=== PATIENT | male | born 1950 | race Caucasian/White ===

== ENCOUNTER 2021-03-03 13:20 | Observation (INO) ==
--- NOTE | 2021-03-03 14:04 | Emergency Department Note ---
Impression & Plan MIKE (acute kidney injury), Nephrolithiasis, Hypertension, essential, Leukocytosis ED Provider Note NAME: SUBHA HERRERA AGE: 70 SEX: M : 1950 ARRIVES VIA: Walk-In INFORMANT: Patient ED PROVIDER(S): Evin Eugene DO CHIEF COMPLAINT: fevers and abdomen HPI: Patient is a 70-year-old male who presents to the ER for left flank pain. He was seen and evaluated at an outside facility in [place] on Monday. Symptoms started on Monday and he was not feeling well and had some vomiting. He was found to have a kidney stone which had passed in his bladder. Has been having chills but no recorded fevers. No chest pain or shortness of breath. No other exacerbating or remitting factors. Denies any dysuria urgency or frequency. He has not really been eating or drinking. ROS: See above HPI for pertinent positives & negatives. A total of 10 systems reviewed and were otherwise negative. PAST MEDICAL HISTORY:See Below PAST SURGICAL HISTORY:See Below FAMILY HISTORY:See Below SOCIAL HISTORY:See Below HOME MEDICATIONS:See Below ALLERGIES:See Below VITALS:See Below PHYSICAL EXAMINATION: GENERAL: Sitting up in bed, alert, well appearing, well nourished, no distress, non-toxic EYE EXAM: normal conjunctiva. OROPHARYNX: no exudate, no erythema, lips, buccal mucosa, and tongue normal and mucous membranes are moist NECK: supple, no nuchal rigidity, no adenopathy, non-tender LUNGS: Clear to auscultation. Normal chest wall mechanics HEART: no murmurs, S1 normal and S2 normal ABDOMEN: abdomen soft, non-tender, normo-active bowel sounds, no masses, no rebo und or guarding. UPPER EXTREMITIES: upper extremities are grossly normal. LOWER EXTREMITIES: No pitting edema. NEURO EXAM: Normal sensorium, cranial nerves II-XII grossly intact, normal speech, no gross weakness of arms, no gross weakness of legs. MEDICAL DECISION MAKING: Patient is a 70-year-old male who presents the ER for abdominal pain. IV was established blood work was obtained. Labs show leukocytosis of 13,000. No significant anemia. INR was unremarkable. BMP with a creatinine of 2.4 up from baseline of 1.4. LFTs bilirubin was unremarkable. Troponin was negative. Procalcitonin was elevated. UA shows leukocytes, white cells, red cells and is contaminated with some epithelial cells. Covid was negative. CT abdomen pelvis shows a stone in the bladder with thickening of the left ureter. Patient was given IV fluids and Rocephin. He was updated bedside. With the MIKE discussed case with the hospitalist for observation. Triage Nursing notes reviewed. Limited review of prior medical records performed Vital Signs: reviewed and remarkable for HTN Differential diagnosis: Infection, dehydration, metabolic abnormality, hypo/hyperglycemia, electrolyte disturbance, anemia, hypoxia, cardiac sources, intracerebral event, toxicologic, neurologic, as well as other pathologies. ER treatment provided: See below Diagnostics interpreted by me: ECG: Sinus rhythm rate of 97 Left axis T wave inversion in the high lateral leads PVCs QTC 487 Cardiac Monitoring: An order was placed for continuous cardiac monitoring. The monitor shows a rate of 88 with sinus rhythm. Laboratory studies: As stated above and show below. Imaging studies: CT abdomen pelvis as discussed above Consultation(s): Discussed with Dr. 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 Beliefs That Will Affect Care: None Current Living Situation: Spouse Feels Safe at Home: Yes Assistive Devices: None Allergies Allergies Allergy/AdvReac Type Severity Reaction Status Date / Time No Known Allergies Allergy Unverified 03/03/21 15:51 Home Meds Home Medications Medication Instructions Recorded Confirmed cilostazol 100 mg PO BID 03/03/21 03/03/21 lisinopril 20 mg PO QAM 03/03/21 03/03/21 meloxicam 15 mg PO HS 03/03/21 03/03/21 metformin 500 mg PO BID 03/03/21 03/03/21 simvastatin 40 mg PO QAM 03/03/21 03/03/21 terazosin 2 mg PO QAM 03/03/21 03/03/21 Results & Data (ED) Vital Signs Vital Signs - 24 hr 03/03/21 13:23 03/03/21 14:09 03/03/21 14:11 Temperature 37.0 C Temperature Source Oral Pulse Rate 117 H 100 H 92 H Pulse Rate from SpO2 Sensor 100 H 98 H Pulse Rhythm Respiratory Rate 20 19 20 Respiratory Effort / Characteristics Non-Labored Respiratory Depth Normal Blood Pressure 132/82 163/86 H Blood Pressure Mean 98 111 Pulse Oximetry 99 97 95 Oxygen Delivery Method Room Air Sepsis Recent Fever Within 48 Hours No Sepsis New/Unexplained Change in Mental Status N/A Sepsis Action Taken by Nursing No Action Required 03/03/21 14:43 03/03/21 14:50 03/03/21 15:00 Temperature Temperature Source Pulse Rate 96 H 95 H Pulse Rate from SpO2 Sensor 98 H 93 H Pulse Rhythm Regular Respiratory Rate 20 15 Respiratory Effort / Characteristics Non-Labored Spontaneous SOB on Exertion Respiratory Depth Blood Pressure 129/76 Blood Pressure Mean 93 Pulse Oximetry 98 94 95 Oxygen Delivery Method Room Air Sepsis Recent Fever Within 48 Hours Sepsis New/Unexplained Change in Mental Status Sepsis Action Taken by Nursing 03/03/21 15:30 Temperature Temperature Source Pulse Rate 89 Pulse Rate from SpO2 Sensor 82 Pulse Rhythm Respiratory Rate 22 Respiratory Effort / Characteristics Respiratory Depth Blood Pressure 149/87 H Blood Pressure Mean 107 Pulse Oximetry 95 Oxygen Delivery Method Sepsis Recent Fever Within 48 Hours Sepsis New/Unexplained Change in Mental Status Sepsis Action Taken by Nursing Laboratory Data Result diagrams: 03/03/21 14:07 03/03/21 14:07 Lab Results 03/03/21 03/03/21 03/03/21 Range/Units 13:57 14:07 14:07 WBC 13.06 H (4.8-10.8) K/uL RBC 5.40 (4.7-6.1) M/uL Hgb 14.6 (14.0-18.0) g/dL Hct 43.8 (42-52) % MCV 81.1 (80-100) fL MCH 27.0 (25-34) pg MCHC 33.3 (32-36) g/dL RDW Std Deviation 45.3 (36.4-46.3) fL RDW Coeff of Joaquin 15.2 H (11.5-14.5) % Plt Count 146 (130-400) K/uL MPV 10.6 H (7.4-10.4) fL Immature Gran % (Auto) 0.3 % Neut % (Auto) 84.5 % Lymph % (Auto) 5.8 % Stonewall % (Auto) 8.7 % Eos % (Auto) 0.5 % Baso % (Auto) 0.2 % Neut # (Auto) 11.05 H (1.4-6.5) K/uL Lymph # (Auto) 0.76 L (1.2-3.4) K/uL Stonewall # (Auto) 1.13 H (0.11-0.59) K/uL Eos # (Auto) 0.06 (0-0.5) K/uL Baso # (Auto) 0.02 (0-0.2) K/uL Immature Gran # (Auto) 0.04 H (0.00-0.02) K/uL PT 10.6 (9.0-12.0) Seconds INR 1.0 (0.9-1.1) APTT 22.6 (21.0-31.0) Seconds PTT Ratio 0.9 Sodium (136-145) mmol/L Potassium (3.5-5.1) mmol/L Chloride (98-107) mmol/L Carbon Dioxide (21-32) mmol/L Anion Gap (3-11) BUN (7-18) mg/dl Creatinine (0.6-1.4) mg/dl Est Cr Clr Drug Dosing ml/min Est GFR ( Amer) ml/min Est GFR (Non-Af Amer) ml/min BUN/Creatinine Ratio (10-20) Glucose (70-99) mg/dl Lactate (0.4-2.0) mmol/L Calcium (8.5-10.1) mg/dl Magnesium (1.8-2.4) mg/dl Total Bilirubin (0.2-1) mg/dl AST (15-37) U/L ALT (12-78) U/L Alkaline Phosphatase (45-117) U/L Troponin I (0-0.045) ng/ml Total Protein (6.4-8.2) gm/dl Albumin (3.4-5.0) gm/dl Globulin (2.5-4.0) gm/dl Albumin/Globulin Ratio (0.9-2) Procalcitonin (0-0.5) ng/ml Urine Color Urine Appearance (Clear) Urine pH (4.5-7.5) Ur Specific Weare (1.000-1.030) Urine Protein (Negative) Urine Glucose (UA) (Negative) Urine Ketones (Negative) Urine Blood (Negative) Urine Nitrite (Negative) Urine Bilirubin (Negative) Urine Urobilinogen (Negative) Ur Leukocyte Esterase (Negative) Urine WBC (Auto) (0-5) /hpf Urine RBC (Auto) (0-4) /hpf U Hyaline Cast (Auto) (0-5) /lpf U Epithel Cells (Auto) (0-5) /lpf Urine Bacteria (Auto) (Negative) COVID-19 Eval Order SARS-CoV-2 (PCR) NEGATIVE (Negative) 03/03/21 03/03/21 03/03/21 Range/Units 14:07 14:07 14:07 WBC (4.8-10.8) K/uL RBC (4.7-6.1) M/uL Hgb (14.0-18.0) g/dL Hct (42-52) % MCV (80-100) fL MCH (25-34) pg MCHC (32-36) g/dL RDW Std Deviation (36.4-46.3) fL RDW Coeff of Joaquin (11.5-14.5) % Plt Count (130-400) K/uL MPV (7.4-10.4) fL Immature Gran % (Auto) % Neut % (Auto) % Lymph % (Auto) % Stonewall % (Auto) % Eos % (Auto) % Baso % (Auto) % Neut # (Auto) (1.4-6.5) K/uL Lymph # (Auto) (1.2-3.4) K/uL Stonewall # (Auto) (0.11-0.59) K/uL Eos # (Auto) (0-0.5) K/uL Baso # (Auto) (0-0.2) K/uL Immature Gran # (Auto) (0.00-0.02) K/uL PT (9.0-12.0) Seconds INR (0.9-1.1) APTT (21.0-31.0) Seconds PTT Ratio Sodium 138 (136-145) mmol/L Potassium 4.0 (3.5-5.1) mmol/L Chloride 105 (98-107) mmol/L Carbon Dioxide 27 (21-32) mmol/L Anion Gap 6.0 (3-11) BUN 33 H (7-18) mg/dl Creatinine 2.44 H (0.6-1.4) mg/dl Est Cr Clr Drug Dosing 35.3 ml/min Est GFR ( Amer) 29.5 ml/min Est GFR (Non-Af Amer) 25.5 ml/min BUN/Creatinine Ratio 13.7 (10-20) Glucose 114 H (70-99) mg/dl Lactate 1.3 (0.4-2.0) mmol/L Calcium 8.5 (8.5-10.1) mg/dl Magnesium 2.2 (1.8-2.4) mg/dl Total Bilirubin 1.0 (0.2-1) mg/dl AST 21 (15-37) U/L ALT 22 (12-78) U/L Alkaline Phosphatase 83 (45-117) U/L Troponin I < 0.015 (0-0.045) ng/ml Total Protein 7.1 (6.4-8.2) gm/dl Albumin 3.4 (3.4-5.0) gm/dl Globulin 3.7 (2.5-4.0) gm/dl Albumin/Globulin Ratio 0.9 (0.9-2) Procalcitonin 1.20 H (0-0.5) ng/ml Urine Color Urine Appearance (Clear) Urine pH (4.5-7.5) Ur Specific Weare (1.000-1.030) Urine Protein (Negative) Urine Glucose (UA) (Negative) Urine Ketones (Negative) Urine Blood (Negative) Urine Nitrite (Negative) Urine Bilirubin (Negative) Urine Urobilinogen (Negative) Ur Leukocyte Esterase (Negative) Urine WBC (Auto) (0-5) /hpf Urine RBC (Auto) (0-4) /hpf U Hyaline Cast (Auto) (0-5) /lpf U Epithel Cells (Auto) (0-5) /lpf Urine Bacteria (Auto) (Negative) COVID-19 Eval Order SARS-CoV-2 (PCR) (Negative) 03/03/21 03/03/21 Range/Units 14:45 14:59 WBC (4.8-10.8) K/uL RBC (4.7-6.1) M/uL Hgb (14.0-18.0) g/dL Hct (42-52) % MCV (80-100) fL MCH (25-34) pg MCHC (32-36) g/dL RDW Std Deviation (36.4-46.3) fL RDW Coeff of Joaquin (11.5-14.5) % Plt Count (130-400) K/uL MPV (7.4-10.4) fL Immature Gran % (Auto) % Neut % (Auto) % Lymph % (Auto) % Stonewall % (Auto) % Eos % (Auto) % Baso % (Auto) % Neut # (Auto) (1.4-6.5) K/uL Lymph # (Auto) (1.2-3.4) K/uL Stonewall # (Auto) (0.11-0.59) K/uL Eos # (Auto) (0-0.5) K/uL Baso # (Auto) (0-0.2) K/uL Immature Gran # (Auto) (0.00-0.02) K/uL PT (9.0-12.0) Seconds INR (0.9-1.1) APTT (21.0-31.0) Seconds PTT Ratio Sodium (136-145) mmol/L Potassium (3.5-5.1) mmol/L Chloride (98-107) mmol/L Carbon Dioxide (21-32) mmol/L Anion Gap (3-11) BUN (7-18) mg/dl Creatinine (0.6-1.4) mg/dl Est Cr Clr Drug Dosing ml/min Est GFR ( Amer) ml/min Est GFR (Non-Af Amer) ml/min BUN/Creatinine Ratio (10-20) Glucose (70-99) mg/dl Lactate (0.4-2.0) mmol/L Calcium (8.5-10.1) mg/dl Magnesium (1.8-2.4) mg/dl Total Bilirubin (0.2-1) mg/dl AST (15-37) U/L ALT (12-78) U/L Alkaline Phosphatase (45-117) U/L Troponin I (0-0.045) ng/ml Total Protein (6.4-8.2) gm/dl Albumin (3.4-5.0) gm/dl Globulin (2.5-4.0) gm/dl Albumin/Globulin Ratio (0.9-2) Procalcitonin (0-0.5) ng/ml Urine Color Dark Yellow Urine Appearance Cloudy A (Clear) Urine pH 5.0 (4.5-7.5) Ur Specific Weare 1.020 (1.000-1.030) Urine Protein 2+ H (Negative) Urine Glucose (UA) Negative (Negative) Urine Ketones Trace H (Negative) Urine Blood 2+ H (Negative) Urine Nitrite Negative (Negative) Urine Bilirubin Negative (Negative) Urine Urobilinogen Negative (Negative) Ur Leukocyte Esterase 1+ H (Negative) Urine WBC (Auto) 10-30 H (0-5) /hpf Urine RBC (Auto) 10-30 H (0-4) /hpf U Hyaline Cast (Auto) 1-5 (0-5) /lpf U Epithel Cells (Auto) >30 H (0-5) /lpf Urine Bacteria (Auto) Negative (Negative) COVID-19 Eval Order Covid19 at [facility] SARS-CoV-2 (PCR) (Negative) Administered Medications Discontinued Medications Ceftriaxone Sodium (Rocephin) 1,000 mg in 50 mls @ 100 mls/hr IV NOW STA Stop: 03/03/21 15:36 Last Infusion: 03/03/21 15:20 Dose: 0 mls/hr Documented by: [id number] Admin: 03/03/21 15:17 Dose: 100 mls/hr Documented by: [id number] Sodium Chloride (Nss 1000ml) 1,000 mls @ 999 mls/hr IV .Q1H1M ONE Stop: 03/03/21 16:07 Last Infusion: 03/03/21 16:53 Dose: 0 mls/hr Documented by: [id number] Admin: 03/03/21 15:17 Dose: 999 mls/hr Documented by: [id number] Imaging Data Radiologist's Impression: Chest X-Ray 03/03/21 13:57 SINGLE VIEW CHEST CLINICAL HISTORY: Sepsis. FINDINGS: An AP, portable, upright chest radiograph is correlated with chest CT dated 05/07/2019. The examination is degraded by portable technique and apical lordotic positioning. The heart is enlarged. The pulmonary vasculature is noncongested. Mild atelectasis is noted in the lung bases. The lungs and pleural spaces are otherwise clear. No pneumothorax is seen. The skeletal structures are osteopenic. The bony thorax is grossly intact. IMPRESSION: Mild cardiomegaly with no acute cardiopulmonary abnormality. ACT 112: Negative or not required by law. Electronically signed by: Mitch Celestin M.D. 03/03/2021 2:13 PM Abdomen/Pelvis CT 03/03/21 13:58 CT SCAN OF THE ABDOMEN AND PELVIS WITHOUT IV CONTRAST CLINICAL HISTORY: Left flank pain. COMPARISON STUDY: Abdominal CT dated 05/07/2019. TECHNIQUE: CT scan of the abdomen and pelvis is performed from the lung bases to the proximal femora. Images are reviewed in the axial, sagittal, and coronal planes. IV contrast was not administered for this examination. A dose lowering technique was utilized adhering to the principles of ALARA. CT DOSE: 1067.06 mGycm FINDINGS: Lung bases: The heart is normal in size and without pericardial effusion. There are coronary artery calcifications. The lung bases are clear. Liver: The unenhanced liver is normal in size, contour, and attenuation. There is no intrahepatic biliary ductal dilatation. Gallbladder: Unremarkable. Spleen: Normal in size and attenuation. Pancreas: The unenhanced pancreas is moderately atrophic and grossly unremarkable. Adrenal glands: Calcifications and a 1.0 cm adenoma of the right adrenal gland are unchanged. The left adrenal gland is normal in appearance. Kidneys: The unenhanced kidneys demonstrate mild cortical atrophy and are without hydronephrosis. There is mild fullness of the left renal collecting system and left perinephric stranding. No calculi are identified in either kidney. There is no evidence of contour deforming renal mass lesion. Abdominal vasculature: There is moderate atherosclerotic calcification of the abdominal aorta. An infrarenal abdominal aortic aneurysm measures 4.6 x 4.6 cm. The right iliac arteries diminutive. Bowel: There is mild colonic diverticulosis without CT evidence of acute di verticulitis. No bowel obstruction is seen. The appendix is well-visualized and normal. Peritoneum: There is no intraperitoneal free air or abdominal ascites. There is a small fat-containing umbilical hernia. Lymphadenopathy: None. Pelvic viscera: The prostate gland is enlarged and heterogeneous, measuring 5.3 cm transverse diameter. There is median lobe hypertrophy. The bladder wall is thickened and trabeculated indicating chronic outlet obstruction. A 4 mm calculus is present within the bladder lumen as seen on image #[id number]. Skeletal structures: The skeletal structures are osteopenic. Mild lumbosacral spondylosis is observed. No lytic or blastic lesions are seen. IMPRESSION: 1. There is a 4 mm calculus within the bladder lumen, as well as fullness of the left renal collecting system and associated left-sided perinephric stranding. This likely represents the sequela of a recently passed kidney stone. 2. No additional calculi are seen in either kidney. 3. There is a 4.6 x 4.6 cm infrarenal abdominal aortic aneurysm. 4. Mild colonic diverticulosis without CT evidence of acute diverticulitis. 5. Additional findings as above. ACT 112: Negative or not required by law. Electronically signed by: Mitch Celestin M.D. 03/03/2021 3:01 PM Discharge Plan Visit Data Chief Complaint: Kidney Stone Stated Complaint: LFT SIDE KID STONE,FEVER,CHILLS,KIDNEY FXN LAB ABN ED Provider: Evin Eugene Discharge Problem: MIKE (acute kidney injury), Nephrolithiasis, Hypertension, essential, Leukocytosis Forms Stand Alone Forms: My [email or web address] Prescriptions Prescriptions: No Action metformin 500 mg tablet 500 mg PO BID RF: 0 cilostazol 100 mg tablet 100 mg PO BID RF: 0 meloxicam 15 mg tablet 15 mg PO HS RF: 0 lisinopril 20 mg tablet 20 mg PO QAM RF: 0 simvastatin 40 mg tablet 40 mg PO QAM RF: 0 terazosin 2 mg capsule 2 mg PO QAM RF: 0 Discharge Problem: Leukocytosis Qualifiers: Leukocytosis type: unspecified Qualified Code(s): D72.829 - Elevated white blood cell count, unspecified
--- NOTE | 2021-03-03 14:14 | XRay Report ---
SINGLE VIEW CHEST CLINICAL HISTORY: Sepsis. FINDINGS: An AP, portable, upright chest radiograph is correlated with chest CT dated 05/07/2019. The examination is degraded by portable technique and apical lordotic positioning. The heart is enlarged. The pulmonary vasculature is noncongested. Mild atelectasis is noted in the lung bases. The lungs an d pleural spaces are otherwise clear. No pneumothorax is seen. The skeletal structures are osteopenic . The bony thorax is grossly intact. IMPRESSION: Mild cardiomegaly with no acute cardiopulmonary abnormality. ACT 112: Negative or not required by law. Electronically signed by: Mitch Celestin M.D. 03/03/2021 2:13 PM
[2021-03-03 14:21] LABS: Basophils # (auto) 0.02 K/uL (0-0.2); Basophils % (auto) 0.2 %; Eosinophils # (auto) 0.06 K/uL (0-0.5); Eosinophils % (auto) 0.5 %; Hematocrit (blood only) 43.8 % (42-52); Hemoglobin 14.6 g/dL (14.0-18.0); Immature Granulocytes # (auto) 0.04 K/uL (0.00-0.02); Immature Granulocytes % (auto) 0.3 %; Lymphocytes # (auto) 0.76 K/uL (1.2-3.4); Lymphocytes % (auto) 5.8 %; Mean Corpuscular Hgb Conc 33.3 g/dL (32-36); Mean Corpuscular Volume 81.1 fL (80-100); Mean Platelet Volume 10.6 fL (7.4-10.4); Monocytes # (auto) 1.13 K/uL (0.11-0.59); Monocytes % (auto) 8.7 %; Neutrophils # (auto) 11.05 K/uL (1.4-6.5); Neutrophils % (auto) 84.5 %; Platelet Count 146 K/uL (130-400); RDW Coefficient of Variation 15.2 % (11.5-14.5); RDW Standard Deviation 45.3 fL (36.4-46.3); White Blood Count 13.06 K/uL (4.8-10.8)
[2021-03-03 14:34] LABS: Partial Thromboplastin Ratio 0.9; Partial Thromboplastin Time 22.6 Seconds (21.0-31.0); Prothrombin Time 10.6 Seconds (9.0-12.0)
[2021-03-03 14:36] LABS: Alanine Aminotransferase 22 U/L (12-78); Albumin Level 3.4 gm/dl (3.4-5.0); Aspartate Aminotransferase 21 U/L (15-37); BUN Creatinine Ratio 13.7 (10-20); Blood Urea Nitrogen 33 mg/dl (7-18); Calcium 8.5 mg/dl (8.5-10.1); Carbon Dioxide 27 mmol/L (21-32); Chloride 105 mmol/L (98-107); Creatinine Clr Calc Pharmacy 35.3 ml/min; Est GFR (African American) 29.5 ml/min; Est GFR (Non-African American) 25.5 ml/min; Glucose 114 mg/dl (70-99); Magnesium 2.2 mg/dl (1.8-2.4); Sodium 138 mmol/L (136-145)
[2021-03-03 14:41] LABS: Albumin Globulin Ratio 0.9 (0.9-2); Alkaline Phosphatase 83 U/L (45-117); Globulin 3.7 gm/dl (2.5-4.0); Total Protein 7.1 gm/dl (6.4-8.2); Troponin I < 0.015 ng/ml (0-0.045)
--- NOTE | 2021-03-03 15:02 | CT Scan Report ---
CT SCAN OF THE ABDOMEN AND PELVIS WITHOUT IV CONTRAST CLINICAL HISTORY: Left flank pain. COMPARISON STUDY: Abdominal CT dated 05/07/2019. TECHNIQUE: CT scan of the abdomen and pelvis is performed from the lung bases to the proximal femora. Images are reviewed in the axial, sagittal, and coronal planes. IV contrast was not administered for this examination. A dose lowering technique was utilized adhering to the principles of ALARA. CT DOSE: 1067.06 mGycm FINDINGS: Lung bases: The heart is normal in size and without pericardial effusion. There are coronary artery c alcifications. The lung bases are clear. Liver: The unenhanced liver is normal in size, contour, and attenuation. There is no intrahepatic javier iary ductal dilatation. Gallbladder: Unremarkable. Spleen: Normal in size and attenuation. Pancreas: The unenhanced pancreas is moderately atrophic and grossly unremarkable. Adrenal glands: Calcifications and a 1.0 cm adenoma of the right adrenal gland are unchanged. The lef t adrenal gland is normal in appearance. Kidneys: The unenhanced kidneys demonstrate mild cortical atrophy and are without hydronephrosis. The re is mild fullness of the left renal collecting system and left perinephric stranding. No calculi ar e identified in either kidney. There is no evidence of contour deforming renal mass lesion. Abdominal vasculature: There is moderate atherosclerotic calcification of the abdominal aorta. An inf rarenal abdominal aortic aneurysm measures 4.6 x 4.6 cm. The right iliac arteries diminutive. Bowel: There is mild colonic diverticulosis without CT evidence of acute diverticulitis. No bowel obs truction is seen. The appendix is well-visualized and normal. Peritoneum: There is no intraperitoneal free air or abdominal ascites. There is a small fat-containin g umbilical hernia. Lymphadenopathy: None. Pelvic viscera: The prostate gland is enlarged and heterogeneous, measuring 5.3 cm transverse diamete r. There is median lobe hypertrophy. The bladder wall is thickened and trabeculated indicating chroni c outlet obstruction. A 4 mm calculus is present within the bladder lumen as seen on image #395. Skeletal structures: The skeletal structures are osteopenic. Mild lumbosacral spondylosis is observed . No lytic or blastic lesions are seen. IMPRESSION: 1. There is a 4 mm calculus within the bladder lumen, as well as fullness of the left renal collectin g system and associated left-sided perinephric stranding. This likely represents the sequela of a rec ently passed kidney stone. 2. No additional calculi are seen in either kidney. 3. There is a 4.6 x 4.6 cm infrarenal abdominal aortic aneurysm. 4. Mild colonic diverticulosis without CT evidence of acute diverticulitis. 5. Additional findings as above. ACT 112: Negative or not required by law. Electronically signed by: Mitch Celestin M.D. 03/03/2021 3:01 PM
[2021-03-03] MEDS ORDERED: SODIUM CHLORIDE 0.9% 1000ML 1,000 ML IV ONE (15:07)
[2021-03-03] MEDS ORDERED: cefTRIAXone SODIUM 1,000 MG/50 ML BAG IV STA (15:07)
[2021-03-03 15:23] LABS: Appearance Urine Cloudy (Clear); Bacteria Urine Automated Negative (Negative); Bilirubin Urine Negative (Negative); Blood Urine 2+ (Negative); Color Urine Dark Yellow; Epithelial Cell Urine Auto >30 /lpf (0-5); Glucose Urine UA Negative (Negative); Ketones Urine Trace (Negative); Leukocyte Esterase Urine 1+ (Negative); Nitrite Urine Negative (Negative); Protein Urine 2+ (Negative); Urobilinogen Urine Negative (Negative)
--- NOTE | 2021-03-03 16:54 | History & Physical Report ---
Date of Service March 03, 2021 Assessment & Plan (1) Nephrolithiasis: Mr. Umaña is a 70 year old male with a history of Hypertension, Dyslipidemia, Obesity, DJD, PAD (Left SFA Occlusion, Right MARIANO Occlusion, Obesity, and an Infrarenal AAA (4.6 x 4.6 cm) who presented to [facility] ER today with a left sided kidney stone that appears to have passed into his bladder, inflamed left ureter, fullness of the left renal collecting system, and evidence of MIKE. Patient has an elevated WBC count with a leftward shift, Serum Creatinine is elevated at 2.44 mg/dl (last measured at 1.46 in April 2019), and CT Scan shows there is a 4.6 x 4.6 cm infrarenal AAA. Patient received a dose of Rocephin in the ER and he is getting IVF's. Pain is better at this point, and he is no longer nauseated. -- Admit to observation status. -- Continue IVF's. -- Type 2 DM diet. -- Oral hydration. -- Analgesics as needed for pain control. -- Recheck BMP in the morning. -- DVT prophylaxis. (2) MIKE (acute kidney injury): -- Hold Meloxicam. -- Hold Lisinopril. -- Hold Metformin. -- Continue IVF's. -- Oral hydration. -- Recheck BMP in the morning. (3) AAA (abdominal aortic aneurysm): This is not listed in his diagnoses, presumed to be newly discovered. -- AAA measures 4.6 x 4.6 cm. -- Patient has seen Dr. Castillo in the past for his PAD. -- Recommend that he follow-up with Dr. Castillo as an outpatient. (4) Hypertension, essential: -- Continue Terazosin 2 mg daily. -- Hold Lisinopril until renal function returns to baseline. (5) Dyslipidemia: -- Continue Simvastatin 40 mg daily. (6) Type 2 diabetes mellitus: -- Hold Metformin. -- Glycemic pharmacy consult. -- BSG checks qAC and HS. -- SSI if needed. History of Present Illness Chief Complaint: -- LLQ pain. -- Nephrolithiasis. -- MIKE. Primary Care Provider: Venkat Camejo DO Mr. Umaña is a 70 year old male with a history of Hypertension, Dyslipidemia, Obesity, DJD, PAD, and Obesity who presented to [facility] ER today complaining of Left Flank Pain with associated Nausea, Vomiting, and Poor Appetite over the past 4 days. He was found to have a kidney stone which had passed in his bladder. He has been having chills but no recorded fevers. He denies any dysuria, urinary urgency, or urinary frequency. Otherwise he has not had a BM in a few days but has not been eating like he normally would. Patient offers no other complaints. Since his stone passed into his bladder the pain has not been as severe. Additionally, he is no longer nauseated -- and states he is very hungry at this point. Evaluation in the ER shows an elevated WBC count with a leftward shift, and his Serum Creatinine is elevated at 2.44 mg/dl (last measured at 1.46 in April 2019). CT Scan shows a 4 mm stone in the bladder, fullness of the left renal collecting system and associated left-sided perinephric stranding. This likely represents the sequela of a recently passed kidney stone, no additional calculi are seen in either kidney, and there is a 4.6 x 4.6 cm infrarenal AAA. Allergies Allergy/AdvReac Type Severity Reaction Status Date / Time No Known Allergies Allergy Unverified 03/03/21 15:51 Home Medications Medication Instructions Recorded Confirmed Type cilostazol 100 mg PO BID 03/03/21 03/03/21 History lisinopril 20 mg PO QAM 03/03/21 03/03/21 History meloxicam 15 mg PO HS 03/03/21 03/03/21 History metformin 500 mg PO BID 03/03/21 03/03/21 History simvastatin 40 mg PO QAM 03/03/21 03/03/21 History terazosin 2 mg PO QAM 03/03/21 03/03/21 History Past Med/Surg History Medical History Cataract, bilateral Diabetes Hypercholesteremia Hypertension Tonsillectomy planned Surgical History Hx of inguinal herniorrhaphy Social History Smoking Status: Current every day smoker Second Hand Exposure: No; Hx Alcohol Use: No Hx Substance Use: No Preferred Language: Icelandic 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 HEENT: Head is atraumatic, normocephalic. EOM's intact. Facies symmetric. No perioral cyanosis. NECK: No JVD. Carotid upstrokes are + 2 bilaterally. No bruits are noted. CHEST/LUNGS: Mildly diminished breath sounds throughout, but otherwise clear. No wheezes, rales, or crackles. CVS: S1 and S2 are regular, distant without obvious murmurs, gallops, or rubs. PMI is nondisplaced. No lifts, heaves, or thrills. No abdominal aortic or renal bruits. Infrarenal AAA is not palpable. ABDOMINAL EXAM: Bowel sounds are present. No masses or organomegaly.tenderness. No palpable pulsatile masses. Mild tenderness to deep palpation in the LLQ. EXTREMITIES: No clubbing or cyanosis. No edema. Intact radial pulses bilaterally. NEUROLOGIC EXAM: Patient is awake, alert, and oriented. Pleasant and cooperative. Answers questions appropriately. Speech is clear. Normal movement in all 4 extremities. Gait pattern was not assessed. Bus Escort shows a NSR. Results & Data Results & Data ([facility]) Vital Signs (Past 12 Hours) Vital Signs Temp Pulse Resp BP Pulse Ox 03/03/21 15:30 89 22 149/87 H 95 03/03/21 15:00 95 H 15 129/76 95 03/03/21 14:50 96 H 20 94 03/03/21 14:43 98 03/03/21 14:11 92 H 20 95 03/03/21 14:09 100 H 19 163/86 H 97 03/03/21 13:23 37.0 C 117 H 20 132/82 99 Laboratory Results Laboratory Results - last 24 hr 03/03/21 03/03/21 03/03/21 13:57 14:07 14:07 WBC 13.06 H RBC 5.40 Hgb 14.6 Hct 43.8 MCV 81.1 MCH 27.0 MCHC 33.3 RDW Std Deviation 45.3 RDW Coeff of Joaquin 15.2 H Plt Count 146 MPV 10.6 H Immature Gran % (Auto) 0.3 Neut % (Auto) 84.5 Lymph % (Auto) 5.8 Zapata % (Auto) 8.7 Eos % (Auto) 0.5 Baso % (Auto) 0.2 Neut # (Auto) 11.05 H Lymph # (Auto) 0.76 L Zapata # (Auto) 1.13 H Eos # (Auto) 0.06 Baso # (Auto) 0.02 Immature Gran # (Auto) 0.04 H PT 10.6 INR 1.0 APTT 22.6 PTT Ratio 0.9 Sodium Potassium Chloride Carbon Dioxide Anion Gap BUN Creatinine Est Cr Clr Drug Dosing Est GFR ( Amer) Est GFR (Non-Af Amer) BUN/Creatinine Ratio Glucose Lactate Calcium Magnesium Total Bilirubin AST ALT Alkaline Phosphatase Troponin I Total Protein Albumin Globulin Albumin/Globulin Ratio Procalcitonin Urine Color Urine Appearance Urine pH Ur Specific [place]f Urine Protein Urine Glucose (UA) Urine Ketones Urine Blood Urine Nitrite Urine Bilirubin Urine Urobilinogen Ur Leukocyte Esterase Urine WBC (Auto) Urine RBC (Auto) U Hyaline Cast (Auto) U Epithel Cells (Auto) Urine Bacteria (Auto) COVID-19 Eval Order SARS-CoV-2 (PCR) NEGATIVE 03/03/21 03/03/21 03/03/21 14:07 14:07 14:07 WBC RBC Hgb Hct MCV MCH MCHC RDW Std Deviation RDW Coeff of Joaquin Plt Count MPV Immature Gran % (Auto) Neut % (Auto) Lymph % (Auto) Zapata % (Auto) Eos % (Auto) Baso % (Auto) Neut # (Auto) Lymph # (Auto) Zapata # (Auto) Eos # (Auto) Baso # (Auto) Immature Gran # (Auto) PT INR APTT PTT Ratio Sodium 138 Potassium 4.0 Chloride 105 Carbon Dioxide 27 Anion Gap 6.0 BUN 33 H Creatinine 2.44 H Est Cr Clr Drug Dosing 35.3 Est GFR ( Amer) 29.5 Est GFR (Non-Af Amer) 25.5 BUN/Creatinine Ratio 13.7 Glucose 114 H Lactate 1.3 Calcium 8.5 Magnesium 2.2 Total Bilirubin 1.0 AST 21 ALT 22 Alkaline Phosphatase 83 Troponin I < 0.015 Total Protein 7.1 Albumin 3.4 Globulin 3.7 Albumin/Globulin Ratio 0.9 Procalcitonin 1.20 H Urine Color Urine Appearance Urine pH Ur Specific [place] Urine Protein Urine Glucose (UA) Urine Ketones Urine Blood Urine Nitrite Urine Bilirubin Urine Urobilinogen Ur Leukocyte Esterase Urine WBC (Auto) Urine RBC (Auto) U Hyaline Cast (Auto) U Epithel Cells (Auto) Urine Bacteria (Auto) COVID-19 Eval Order SARS-CoV-2 (PCR) 03/03/21 03/03/21 14:45 14:59 WBC RBC Hgb Hct MCV MCH MCHC RDW Std Deviation RDW Coeff of Joaquin Plt Count MPV Immature Gran % (Auto) Neut % (Auto) Lymph % (Auto) Zapata % (Auto) Eos % (Auto) Baso % (Auto) Neut # (Auto) Lymph # (Auto) Zapata # (Auto) Eos # (Auto) Baso # (Auto) Immature Gran # (Auto) PT INR APTT PTT Ratio Sodium Potassium Chloride Carbon Dioxide Anion Gap BUN Creatinine Est Cr Clr Drug Dosing Est GFR ( Amer) Est GFR (Non-Af Amer) BUN/Creatinine Ratio Glucose Lactate Calcium Magnesium Total Bilirubin AST ALT Alkaline Phosphatase Troponin I Total Protein Albumin Globulin Albumin/Globulin Ratio Procalcitonin Urine Color Dark Yellow Urine Appearance Cloudy A Urine pH 5.0 Ur Specific [place] 1.020 Urine Protein 2+ H Urine Glucose (UA) Negative Urine Ketones Trace H Urine Blood 2+ H Urine Nitrite Negative Urine Bilirubin Negative Urine Urobilinogen Negative Ur Leukocyte Esterase 1+ H Urine WBC (Auto) 10-30 H Urine RBC (Auto) 10-30 H U Hyaline Cast (Auto) 1-5 U Epithel Cells (Auto) >30 H Urine Bacteria (Auto) Negative COVID-19 Eval Order Covid19 at [facility] SARS-CoV-2 (PCR) Diagnostic Findings CT SCAN ABDOMEN/PELVIS 03/03/21: Lung bases: The heart is normal in size and without pericardial effusion. There are coronary artery calcifications. The lung bases are clear. Liver: The unenhanced liver is normal in size, contour, and attenuation. There is no intrahepatic biliary ductal dilatation. Gallbladder: Unremarkable. Spleen: Normal in size and attenuation. Pancreas: The unenhanced pancreas is moderately atrophic and grossly unremarkable. Adrenal glands: Calcifications and a 1.0 cm adenoma of the right adrenal gland are unchanged. The left adrenal gland is normal in appearance. Kidneys: The unenhanced kidneys demonstrate mild cortical atrophy and are without hydronephrosis. There is mild fullness of the left renal collecting system and left perinephric stranding. No calculi are identified in either kidney. There is no evidence of contour deforming renal mass lesion. Abdominal vasculature: There is moderate atherosclerotic calcification of the abdominal aorta. An infrarenal abdominal aortic aneurysm measures 4.6 x 4.6 cm. The right iliac arteries diminutive. Bowel: There is mild colonic diverticulosis without CT evidence of acute diverticulitis. No bowel obstruction is seen. The appendix is well-visualized and normal. Peritoneum: There is no intraperitoneal free air or abdominal ascites. There is a small fat-containing umbilical hernia. Lymphadenopathy: None. Pelvic viscera: The prostate gland is enlarged and heterogeneous, measuring 5.3 cm transverse diameter. There is median lobe hypertrophy. The bladder wall is thickened and trabeculated indicating chronic outlet obstruction. A 4 mm calculus is present within the bladder lumen as seen on image #[id number]. Skeletal structures: The skeletal structures are osteopenic. Mild lumbosacral spondylosis is observed. No lytic or blastic lesions are seen. IMPRESSION: 1. There is a 4 mm calculus within the bladder lumen, as well as fullness of the left renal collecting system and associated left-sided perinephric stranding. This likely represents the sequela of a recently passed kidney stone. 2. No additional calculi are seen in either kidney. 3. There is a 4.6 x 4.6 cm infrarenal abdominal aortic aneurysm. 4. Mild colonic diverticulosis without CT evidence of acute diverticulitis. 5. Additional findings as above. CXR 03/03/21: An AP, portable, upright chest radiograph is correlated with chest CT dated 05/07/2019. The examination is degraded by portable technique and apical lordotic positioning. The heart is enlarged. The pulmonary vasculature is non-congested. Mild atelectasis is noted in the lung bases. The lungs and pleural spaces are otherwise clear. No pneumothorax is seen. The skeletal structures are osteopenic. The bony thorax is grossly intact. IMPRESSION: Mild cardiomegaly with no acute cardiopulmonary abnormality. Code Status & VTE Plan Code Status Full Code VTE Prophylaxis Plan VTE Prophylaxis will be ordered: Yes Supervising Physician Co-Signing Physician Notes Note reviewed, reviewed with TRISHA and agree with his note above. Patient is being managed for acute kidney injury, likely secondary to residual from obstructive nephrolithiasis. Per imaging, appears that the stone has passed and there is currently a 4 mm stone in the bladder. However, the patient is excessively weak and having made of his reason. Plan Place in observation, continue medications outside of nephrotoxins. IV hydration. PT/OT evaluation. PG Care Time/CCT Total # of Minutes Spent Total Time Spent with Patient: Total time spent is greater than 50% in coordination of care (as documented) at patient's floor/unit and/or counseling patient:40 Coding Level of Care Code 58167 OBS Care - Level 3 Diagnoses Nephrolithiasis N20.0 MIKE (acute kidney injury) N17.9 AAA (abdominal aortic aneurysm) I71.4 Hypertension, essential I10 Dyslipidemia E78.5 Type 2 diabetes mellitus E11.9 Time Spent (min) 55
[2021-03-03] MEDS ORDERED: HYDROcodone/ACETAMINOPHEN 10/325 TAB PO PRN (18:25)
[2021-03-03] MEDS ORDERED: MoRPHine SULFATE 4 MG/ML 1 ML CARP\\VIAL IV PRN (18:25)
[2021-03-03] MEDS ORDERED: ACETAMINOPHEN 325 MG TAB PO PRN (18:25)
[2021-03-03] MEDS ORDERED: ONDANSETRON INJ 2 MG/ML 2 ML VIAL IV PRN (18:25)
[2021-03-03] MEDS ORDERED: ZOLPIDEM TARTRATE 5 MG TAB PO PRN (18:25)
[2021-03-03] MEDS ORDERED: ALUMINUM/MAGNESIUM SUSP 30 ML UDC PO PRN (18:25)
[2021-03-03] MEDS ORDERED: SODIUM CHLORIDE 0.9% 1000ML 1,000 ML IV SCH (18:25)
[2021-03-03] MEDS ORDERED: MAGNESIUM HYDROXIDE SUSP 30 ML UDC PO PRN (18:25)
[2021-03-03] MEDS ORDERED: POLYETHYLENE (MIRALAX) 17 GM PACK PO PRN (18:25)
[2021-03-03] MEDS ORDERED: PHARMACY GLYCEMIC MGMT CONSULT PRN (18:47)
[2021-03-03] MEDS ORDERED: GLUCOSE 40% GEL 15 GM TUBE PO PRN (19:00)
[2021-03-03] MEDS ORDERED: GLUCOSE 10 TABS/TUBE PO PRN (19:00)
[2021-03-03] MEDS ORDERED: GLUCAGON FOR INJ 1 MG VIAL IM PRN (19:00)
[2021-03-03] MEDS ORDERED: DEXTROSE 50% 50 ML SYRINGE IV PRN (19:00)
[2021-03-03] MEDS ORDERED: CARBOHYDRATES FOR HYPOGLYCEMIA PO PRN (19:00)
[2021-03-03] MEDS: cilostazoL 100 MG TAB PO SCH (20:18)
[2021-03-03] MEDS: SIMVASTATIN 40 MG TAB PO SCH (20:19)
[2021-03-03] MEDS: ENOXAPARIN INJ 40 MG/0.4 ML SYR SQ SCH (20:22)
[2021-03-03] MEDS: INSULIN ASPART 100 UNITS/ML 3 ML PEN SC SCH (20:48)
[2021-03-04 06:14] LABS: Basophils # (auto) 0.02 K/uL (0-0.2); Basophils % (auto) 0.2 %; Eosinophils % (auto) 1.1 %; Hematocrit (blood only) 37.3 % (42-52); Hemoglobin 12.7 g/dL (14.0-18.0); Immature Granulocytes # (auto) 0.02 K/uL (0.00-0.02); Immature Granulocytes % (auto) 0.2 %; Mean Corpuscular Hemoglobin 27.3 pg (25-34); Mean Platelet Volume 10.4 fL (7.4-10.4); Monocytes # (auto) 1.05 K/uL (0.11-0.59); Monocytes % (auto) 11.4 %; Neutrophils # (auto) 6.91 K/uL (1.4-6.5); Neutrophils % (auto) 75.1 %; Platelet Count 142 K/uL (130-400); RDW Coefficient of Variation 15.1 % (11.5-14.5); RDW Standard Deviation 43.8 fL (36.4-46.3); Red Blood Count 4.66 M/uL (4.7-6.1)
[2021-03-04 06:56] LABS: BUN Creatinine Ratio 17.8 (10-20); Calcium 7.8 mg/dl (8.5-10.1); Creatinine Clr Calc Pharmacy 44.7 ml/min; Est GFR (African American) 39.4 ml/min; Potassium 3.5 mmol/L (3.5-5.1)
[2021-03-04] MEDS: ENOXAPARIN INJ 40 MG/0.4 ML SYR SQ SCH ×2 (07:45→07:53)
[2021-03-04] MEDS: cilostazoL 100 MG TAB PO SCH (07:46)
[2021-03-04] MEDS: SIMVASTATIN 40 MG TAB PO SCH (07:47)
[2021-03-04] MEDS: INSULIN ASPART 100 UNITS/ML 3 ML PEN SC SCH (08:37)
[2021-03-04] MEDS ORDERED: TERAZOSIN HCL 1 MG CAP PO SCH (09:00)
--- NOTE | 2021-03-04 10:57 | Discharge Summary ---
Date of Service March 04, 2021 Admission HPI Per Admitting Provider Mr. Umaña is a 70 year old male with a history of Hypertension, Dyslipidemia, Obesity, DJD, PAD, and Obesity who presented to [facility] today complaining of Left Flank Pain with associated Nausea, Vomiting, and Poor Appetite over the past 4 days. He was found to have a kidney stone which had passed in his bladder. He has been having chills but no recorded fevers. He denies any dysuria, urinary urgency, or urinary frequency. Otherwise he has not had a BM in a few days but has not been eating like he normally would. Patient offers no other complaints. Since his stone passed into his bladder the pain has not been as severe. Additionally, he is no longer nauseated -- and states he is very hungry at this point. Evaluation in the ER shows an elevated WBC count with a leftward shift, and his Serum Creatinine is elevated at 2.44 mg/dl (last measured at 1.46 in April 2019). CT Scan shows a 4 mm stone in the bladder, fullness of the left renal collecting system and associated left-sided perinephric stranding. This likely represents the sequela of a recently passed kidney stone, no additional calculi are seen in either kidney, and there is a 4.6 x 4.6 cm infrarenal AAA. Admission Exam Per Admitting Provider GENERAL: Patient in no acute distress, lying supine on his ER litter. HEENT: Head is atraumatic, normocephalic. EOM's intact. Facies symmetric. No perioral cyanosis. NECK: No JVD. Carotid upstrokes are + 2 bilaterally. No bruits are noted. CHEST/LUNGS: Mildly diminished breath sounds throughout, but otherwise clear. No wheezes, rales, or crackles. CVS: S1 and S2 are regular, distant without obvious murmurs, gallops, or rubs. PMI is nondisplaced. No lifts, heaves, or thrills. No abdominal aortic or renal bruits. Infrarenal AAA is not palpable. ABDOMINAL EXAM: Bowel sounds are present. No masses or organomegaly.tenderness. No palpable pulsatile masses. Mild tenderness to deep palpation in the LLQ. EXTREMITIES: No clubbing or cyanosis. No edema. Intact radial pulses bilaterally. NEUROLOGIC EXAM: Patient is awake, alert, and oriented. Pleasant and cooperative. Answers questions appropriately. Speech is clear. Normal movement in all 4 extremities. Gait pattern was not assessed. Prepleater shows a NSR. Principal Diagnosis -- Passed left ureteral kidney stone. -- Acute Kidney Injury secondary to ureteral stone. Discharge Exam GENERAL: Patient in no acute distress, lying supine on his ER litter. HEENT: Head is atraumatic, normocephalic. EOM's intact. Facies symmetric. No perioral cyanosis. NECK: No JVD. Carotid upstrokes are + 2 bilaterally. No bruits are noted. CHEST/LUNGS: Mildly diminished breath sounds throughout, but otherwise clear. No wheezes, rales, or crackles. CVS: S1 and S2 are regular, distant without obvious murmurs, gallops, or rubs. PMI is nonpalpable. No lifts, heaves, or thrills. No abdominal aortic or renal bruits. Infrarenal AAA is not palpable. ABDOMINAL EXAM: Bowel sounds are present. No masses or organomegaly.tenderness. No palpable pulsatile masses. No abdominal or LLQ tenderness to palpation. EXTREMITIES: No clubbing or cyanosis. No edema. Intact radial pulses bilaterally. NEUROLOGIC EXAM: Patient is awake, alert, and oriented. Pleasant and cooperative. Answers questions appropriately. Speech is clear. Normal movement in all 4 extremities. Gait pattern is unremarkable. Discharge Data Allergies Allergy/AdvReac Type Severity Reaction Status Date / Time No Known Allergies Allergy Unverified 03/03/21 15:51 Consultations 03/03/21 15:09 ED Decision to Admit Stat Procedures Performed CT SCAN ABDOMEN/PELVIS 03/03/21: Lung bases: The heart is normal in size and without pericardial effusion. There are coronary artery calcifications. The lung bases are clear. Liver: The unenhanced liver is normal in size, contour, and attenuation. There is no intrahepatic biliary ductal dilatation. Gallbladder: Unremarkable. Spleen: Normal in size and attenuation. Pancreas: The unenhanced pancreas is moderately atrophic and grossly unremarkable. Adrenal glands: Calcifications and a 1.0 cm adenoma of the right adrenal gland are unchanged. The left adrenal gland is normal in appearance. Kidneys: The unenhanced kidneys demonstrate mild cortical atrophy and are without hydronephrosis. There is mild fullness of the left renal collecting system and left perinephric stranding. No calculi are identified in either kidney. There is no evidence of contour deforming renal mass lesion. Abdominal vasculature: There is moderate atherosclerotic calcification of the abdominal aorta. An infrarenal abdominal aortic aneurysm measures 4.6 x 4.6 cm. The right iliac arteries diminutive. Bowel: There is mild colonic diverticulosis without CT evidence of acute diverticulitis. No bowel obstruction is seen. The appendix is well-visualized and normal. Peritoneum: There is no intraperitoneal free air or abdominal ascites. There is a small fat-containing umbilical hernia. Lymphadenopathy: None. Pelvic viscera: The prostate gland is enlarged and heterogeneous, measuring 5.3 cm transverse diameter. There is median lobe hypertrophy. The bladder wall is thickened and trabeculated indicating chronic outlet obstruction. A 4 mm calcul us is present within the bladder lumen as seen on image #[id number]. Skeletal structures: The skeletal structures are osteopenic. Mild lumbosacral spondylosis is observed. No lytic or blastic lesions are seen. IMPRESSION: 1. There is a 4 mm calculus within the bladder lumen, as well as fullness of the left renal collecting system and associated left-sided perinephric stranding. This likely represents the sequela of a recently passed kidney stone. 2. No additional calculi are seen in either kidney. 3. There is a 4.6 x 4.6 cm infrarenal abdominal aortic aneurysm. 4. Mild colonic diverticulosis without CT evidence of acute diverticulitis. 5. Additional findings as above. CXR 03/03/21: An AP, portable, upright chest radiograph is correlated with chest CT dated 05/07/2019. The examination is degraded by portable technique and apical lordotic positioning. The heart is enlarged. The pulmonary vasculature is non-congested. Mild atelectasis is noted in the lung bases. The lungs and pleural spaces are otherwise clear. No pneumothorax is seen. The skeletal structures are osteopenic. The bony thorax is grossly intact. IMPRESSION: Mild cardiomegaly with no acute cardiopulmonary abnormality. Ordered Studies 03/03/21 13:58 CT abd pelvis wo con Stat Hospital Course (1) Nephrolithiasis: Mr. Umaña is a 70 year old male with a history of Hypertension, Dyslipidemia, Obesity, DJD, PAD, and Obesity who presented to [facility] ER today complaining of Left Flank Pain with associated Nausea, Vomiting, and Poor Appetite over the past 4 days. He was found to have a kidney stone which had passed in his bladder, but on admission was still having LLQ pain, fullness of the left renal collecting system and associated left-sided perinephric stranding, bladder stone, and evidence of acute kidney injury. Additionally, his CT Scan shows a 4.6 x 4.6 cm infrarenal AAA. Patient was admitted to observation status for IVF's and to monitor renal function. Serum Creatinine was elevated at 2.44 mg/dl on admission, and improved with IVF's to 1.92 mg/dl on the day of discharge. Nephrotoxic medications held on admission as well. He is uncertain whether or not he passed his bladder stone. Nonetheless, his LLQ pain has resolved. (2) MIKE (acute kidney injury): -- Improved with IVF's. -- Creatinine at discharge is 1.92 mg/dl (baseline Creatinine is 1.5 mg/dl). (3) AAA (abdominal aortic aneurysm): -- 4.6 x 4.6 cm infrarenal AAA. -- No intervention while hospitalized. -- Recommend scheduling an appointment with Dr. Khoi Castillo to keep surveillance. (4) Hypertension, essential: -- BP's controlled throughout this hospitalization. -- Continue Terazosin 2 mg daily. -- Resume Lisinopril 20 mg daily following discharge. (5) Dyslipidemia: -- Continue Simvastatin 40 mg daily. (6) Type 2 diabetes mellitus: -- Metformin held during this hospitalization. -- Recommend rechecking blood work and following up with your PCP within the next week. -- If renal function has returned to baseline, you may resume Metformin 500 mg b.i.d.. Total Time Total Time Spent Total Time Spent (In Minutes): 40 Total Time Includes: Examination of the Patient, Discharge Planning, Medication Reconciliation and Communication With Other Providers Discharge Plan Discharge Items Patient Disposition: Home - Self-Care Reason For Visit: NEPHROLITHIASIS Discharge Diagnosis: -- Passed kidney stone. -- Acute Kidney Injury secondary to problem #1 -- Elevated white blood cell count secondary to problem #1 Condition on Discharge: Good Activity: Resume your previous activity Lifting: Gradually increase as tolerated Bathing: No limitations Sexual Activity: When tolerated Exercise/Sports: As tolerated Driving/Machine Use: No limitations Non-emergency contact: Primary Care Provider Call non-emergency contact if: you have any medication questions, your symptoms worsen, you have a fever and your temperature is above 101 Follow-up/Referrals: Venkat Camejo DO [Primary Care Provider] - 03/10/21 2:00 pm Diet: Carb Consistent or DM2 Diet Comment: Increase water intake. Decrease your intake of iced tea. Ambulatory Orders: Basic Metabolic Panel (Routine) Timeframe: 1 Week Location: Determined by Patient Ordered By: Marcos Walters Attending Provider Instructions: 1. Stay well hydrated. 2. Decrease ice tea consumption. 3. Check blood work to evaluate kidney function with 1 week of discharge. 4. Do not take Metformin until after your blood work is completed and you meet with your PCP. 5. Recommend making an appointment with Dr. Khoi Castillo regarding your abdominal aortic aneurysm. Pending Studies at Discharge: Yes Stand-Alone Forms: My [facility] [employer], Smoking Cessation Medications and DC Order Prescriptions: New ciprofloxacin HCl 500 mg tablet 500 mg PO BID Qty: 14 RF: 0 Continued metformin 500 mg tablet 500 mg PO BID RF: 0 cilostazol 100 mg tablet 100 mg PO BID RF: 0 meloxicam 15 mg tablet 15 mg PO HS RF: 0 lisinopril 20 mg tablet 20 mg PO QAM RF: 0 simvastatin 40 mg tablet 40 mg PO QAM RF: 0 terazosin 2 mg capsule 2 mg PO QAM RF: 0 Discharge Orders: Discharge Order (Routine); Ordered 03/04/21 Ordered By: Marcos Tran/Other Patient Handouts: Aneurysm Abdominal Aortic, Acute Kidney Failure Dc Admission Data Admit Date/Time: 03/03/21 16:22 Attending Provider: Ananth Snyder Admit Provider: Marcos Carney Primary Care Provider: Venkat Camejo Other Providers: Oziel Hurst Other Interventions: Discharge Summary Assessment (RN) Last Done: 03/04/21 11:27 Supervising Physician Co-Signing Physician Notes Patient seen and examined on the day of discharge. I agree with the discharge summary by Marcos PHAM. I have reviewed the chart including labs, imaging and plans for discharge. patient feeling much, much better, no pain, no fever, eating and drinking well, vitals stable Cr improved to 1.9, making urine, electrolytes stable reviewed chart, his UA showed some signs of possible infection, urine culture still pending, will send on Cipro to cover him got a call in the evening after he was discharged in the morning, microbiology preliminary report with one set of blood cultures positive for gram positive cocci will follow up final results but likely contaminant given his UTI no growth on the urine culture yet Coding Level of Care Code 11458 OBS Care - Discharge Diagnoses Nephrolithiasis N20.0 MIKE (acute kidney injury) N17.9 AAA (abdominal aortic aneurysm) I71.4 Hypertension, essential I10 Dyslipidemia E78.5 Type 2 diabetes mellitus E11.9 Time Spent (min) 45
--- NOTE | 2021-03-04 15:12 | Electrocardiogram Report ---
Test Reason : Blood Pressure : / mmHG Vent. Rate : 097 BPM Atrial Rate : 097 BPM P-R Int : 158 ms QRS Dur : 130 ms QT Int : 384 ms P-R-T Axes : 075 -55 089 degrees QTc Int : 487 ms Sinus rhythm with occasional Premature ventricular complexes Left axis deviation Left ventricular hypertrophy with QRS widening and repolarization abnormality Abnormal ECG No previous ECGs available Confirmed by Jamal Gonzalez ([id number]) on 03/04/2021 3:11:26 PM Referred By: Venkat Camejo Confirmed By:Jamal Gonzalez
== END 2021-03-04 12:45 | disposition home or self-care (01) ==
LOC: 3N 13:20 → ED 13:20 → SUATTDRO 16:22 → 3N 17:53

== ENCOUNTER 2022-09-14 05:51 | Inpatient (IN) ==
--- NOTE | 2022-08-10 09:17 | PAT Medication Instructions ---
Medication Instructions Date of Service August 10, 2022 Home Medications cilostazol 100 mg tablet 100 mg PO BID lisinopril 20 mg tablet 20 mg PO QAM meloxicam 15 mg tablet 15 mg PO HS metformin 500 mg tablet 500 mg PO BID simvastatin 40 mg tablet 40 mg PO QAM terazosin 2 mg capsule 2 mg PO QAM amlodipine 5 mg tablet 5 mg PO QDL aspirin 81 mg tablet,delayed release 81 mg PO QAM ASK your surgeon for instructions meloxicam 15 mg tablet 15 mg PO HS ASK your prescriber and surgeon aspirin 81 mg tablet,delayed release 81 mg PO QAM DO NOT take the morning of surgery lisinopril 20 mg tablet 20 mg PO QAM metformin 500 mg tablet 500 mg PO BID Take morning of surgery With a small sip of water, OTHERWISE NOTHING TO EAT OR DRINK AFTER MIDNIGHT: cilostazol 100 mg tablet 100 mg PO BID simvastatin 40 mg tablet 40 mg PO QAM terazosin 2 mg capsule 2 mg PO QAM amlodipine 5 mg tablet 5 mg PO QDL Take evening before surgery cilostazol 100 mg tablet 100 mg PO BID metformin 500 mg tablet 500 mg PO BID Other Notes If you have any questions please call us at [phone] or [phone] or [phone] or [phone]
--- NOTE | 2022-08-17 11:35 | Anesthesiology Consultation ---
Date of Service August 17, 2022 Assessment & Plan (1) Encounter for pre-operative examination: - Check BSG AM DOS - COVID screening: Per assessment on 08/17: No known COVID-19 positive contacts or current COVID-19 related symptoms. Travel screen negative. Patient vaccinated. At surgeon discretion if preop Covid testing being done. - Cilostazol instructions per surgeon/prescriber - Anxious: Pt requests preop anxiolytic if possible - Possible difficult intubation: Due to anatomy - Diminished EF on surgeon-ordered preop Echo. Echo findings reviewed with Dr. Tavera. He feels that patient okay to proceed with given surgery as scheduled from his perspective. Echo report forwarded to PCP for them to f/u with at their discretion. Chart Review Chart Review: Acceptable Risk for Surgery (pending evaluation AM DOS) and Patient seen in Pre Admission Testing Teaching & Discussion Pre-Anesthesia Teaching/Discussion Notes: Instructed NPO after midnight before surgery,except medications with 15 cc of water. Medication instructions provided according to the PAT guidelines. History Surgery Operation Date: 09/14/22 07:30 Proposed Procedures p Percuataneous Endovascular Abdominal - Khoi Castillo MD s Aortic Aneurysm Repair - Khoi Castillo MD s Possible Femoral to Femoral Bypass Graft - Khoi Castillo MD Height/Weight Height: 5 ft 10.5 in Weight: 117.5 kg Allergies Allergy/AdvReac Type Severity Reaction Status Date / Time No Known Allergies Allergy Verified 08/09/22 15:34 Medications Home Medications Medication Instructions Recorded Confirmed Last Taken cilostazol 100 mg tablet 100 mg PO BID 03/03/21 08/09/22 02/28/21 lisinopril 20 mg tablet 20 mg PO QAM 03/03/21 08/09/22 02/28/21 meloxicam 15 mg tablet 15 mg PO HS 03/03/21 08/09/22 02/28/21 metformin 500 mg tablet 500 mg PO BID 03/03/21 08/09/22 02/28/21 simvastatin 40 mg tablet 40 mg PO QAM 03/03/21 08/09/22 02/28/21 terazosin 2 mg capsule 2 mg PO QAM 03/03/21 08/09/22 02/28/21 amlodipine 5 mg tablet 5 mg PO QDL 07/07/22 08/09/22 Unknown aspirin 81 mg tablet,delayed 81 mg PO QAM 08/09/22 08/09/22 Unknown release Past Medical History Medical History (Updated 08/17/22 @ 15:18 by Michelle Hoyt) AAA (abdominal aortic aneurysm) CKD (chronic kidney disease) DM type 2 (diabetes mellitus, type 2) History of kidney stones Hypercholesteremia Hypertension PVD (peripheral vascular disease) Sleep apnea unable to tolerate CPAP Exercise / Class Metabolic Activity III < 4 Walking/Shop/Light housework Past Family History Family History Other No family history of adverse response to anesthesia Past Surgical History Surgical History History of cardiac catheterization 1994 no stents History of cataract surgery History of colonoscopy History of tonsillectomy Hx of inguinal herniorrhaphy S/P aortogram Past Anesthesia History No Hx of Anesthesia Complications and No Family Hx of Anesthesia Complications History of PONV No Hx of PONV and No Hx of Motion Sickness Social History Smoking Status: Heavy tobacco smoker tobacco type: cigarettes Smoking cigarettes per day: 30 cigs/day Do You Dip or Chew Tobacco: No Hx Alcohol Use: No Hx Substance Use: No substance use type: does not use Review of Systems Patient denies chest pain, shortness of breath, fever, chills, cough, wheezing, palpitations. Physical Exam Vital Signs VITALS BP 168/96 P 69 TEMP 98.1 SP02 98%RA RESP 18 PHYSICAL Full cervical extension range of motion. Full TMJ range of motion. TMD 3 finger breaths Mallampati Score 4 (small oral opening) Dentition: missing molar, + several crowns Lungs: clear throughout to auscultation Cardiac: regular rate and rhythm, no murmurs noted Spine: normal Carotid arteries: negative bruit Extremities: no edema Lab Results Anesthesia Preop Results Results Anesthesia Widget: WBC 6.61 K/ul (4.8-10.8) 08/17/22 Hgb 13.5 g/dl (14.0-18.0) L 08/17/22 Hct 40.9 % (40.1-51.0) 08/17/22 Plt 173 K/uL (130-400) 08/17/22 Na 143 mmol/L (136-145) 08/17/22 K 4.0 mmol/L (3.5-5.1) 08/17/22 Cl 110 mmol/L (98-107) H 08/17/22 CO2 27 mmol/L (21-32) 08/17/22 BUN 21 mg/dl (6-23) 08/17/22 Creat 1.55 mg/dl (0.6-1.4) H 08/17/22 Glucose Level 97 mg/dl (70-99(Fasting)) 08/17/22 PT 10.3 Seconds (9.0-12.0) 08/17/22 PTT 24.1 Seconds (21.0-31.0) 08/17/22 INR 1.0 (0.9-1.1) 08/17/22 HA1c 6.0 % (4.5-5.6) H 08/17/22 Blood Type B Positive 08/17/22 Antibody Screen NEGATIVE 08/17/22 Testing Electrocardiogram Date: 08/17/22 NSR at 60bpm. LAD. LVH with QRS widening. Compared to 03/03/21, PVCs no longer present, vent. 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 Chest X-Ray Date: 08/17/22 FINDINGS: Lung volumes are normal. Lungs are clear. There is no pneumothorax or pleural effusion. Cardiac size is stable. Mediastinal contours are normal. There is no evidence for pulmonary edema. IMPRESSION: No acute cardiopulmonary findings. Echocardiogram Date: 08/05/22 EF 40-45%. Mild concentric LVH. Grade 1 diastolic dysfunction. Mild RVD. Mild MR directed centrally. Physiologic AR directed centrally. Other Testing CTA Abd/Pelvis (07/07/22) Infrarenal aortic aneurysm measuring 50 mm, increased from prior exam where it measured 45 mm. There is significant stenosis in the origin of the left iliac arteries. The right common iliac artery is not opacified, although there is distal reconstitution of the internal and external iliac arteries. The origin of the great vessels of the abdomen are patent. 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 Diverticulosis without diverticulitis. 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 COVID-19 Risk Screen Screening Information COVID-19 Screen Date: 08/17/22 Exposure 21 Days Family/Household +COVID Last 21 Days: No Exposure 10 Days Any COVID Exposure Last 10 Days: No Symptoms Last 10 Days Experienced COVID Sx Last 10 Days: No + COVID 0-90 Days COVID + in Last 0-90 Days: No
[2022-09-14] MEDS ORDERED: CEFAZOLIN 2,000 MG/15 ML SYR IV SCH (06:00)
[2022-09-14] MEDS ORDERED: fentaNYL citrate 100 MCG/2 ML VIAL ONE ×3 (06:50→10:13)
[2022-09-14] MEDS ORDERED: MIDAZOLAM HCL 1 MG/ML 2ML VIAL ONE (06:51)
[2022-09-14] MEDS ORDERED: PROPOFOL IV EMULSION 10 MG/ML 20 ML VIAL IV ONE (07:03)
[2022-09-14] MEDS ORDERED: DEXAMETHASONE SOD INJ 4 MG/ML VIAL ONE (07:03)
[2022-09-14] MEDS ORDERED: ROCURONIUM BROMIDE 10 MG/ML 5 ML VIAL IV ONE ×6 (07:03→10:50)
[2022-09-14] MEDS ORDERED: LIDOCAINE 2% MPF LOCAL 5 ML VIAL INFIL ONE (07:03)
[2022-09-14] MEDS ORDERED: ONDANSETRON INJ 2 MG/ML 2 ML VIAL ONE (07:03)
[2022-09-14] MEDS ORDERED: PHENYLEPHRINE HCL 10 MG/ML VIAL ONE (07:04)
[2022-09-14] MEDS ORDERED: HEPARIN SOD (PORCINE) 1000 UNIT/ML ONE (07:04)
[2022-09-14] MEDS ORDERED: HEPARIN (PORCINE) 1000 UNIT/ML 10 ML (CATH LAB USE ONLY) ONE (07:10)
[2022-09-14] MEDS ORDERED: BUPIVACAINE/EPINEPHRINE 0.5% MPF 1:200,000 30 ML VIAL ONE (07:10)
[2022-09-14] MEDS ORDERED: PAPAVERINE HCL INJ 30 MG/ML 2 ML VIAL ONE (07:10)
[2022-09-14] MEDS ORDERED: LIDOCAINE 1% LOCAL 20 ML VIAL ONE (07:10)
[2022-09-14] MEDS ORDERED: ceFAZolin 330 MG/ML 1 GM VIAL ONE ×2 (07:11→11:30)
[2022-09-14] MEDS ORDERED: THROMBIN 5000 UNITS KIT ONE (07:11)
[2022-09-14] MEDS ORDERED: GELATIN SPONGE SZ 100 ONE (07:11)
[2022-09-14] MEDS ORDERED: THROMBIN FOR SOLN 20000 UNIT KIT ONE (07:12)
--- NOTE | 2022-09-14 07:28 | History & Physical Report ---
Date of Service September 14, 2022 Assessment & Plan (1) AAA (abdominal aortic aneurysm): Plan: Patient admitted for a PEVAR of his AAA with possible fem fem bypass if needed. I have discussed the risks options and benefits of the procedure with the patient. The patient understands the risks options and benefits and agrees to the procedure. History of Present Illness Chief Complaint: AAA and right iliac artery occlusion Primary Care Provider: Venkat Camejo DO Mr. Umaña is a middle-aged male who presented for a 1 year follow-up visit regarding his history of abdominal aortic aneurysm, as well as severe aortoiliac disease. Patient states he is not particularly active, but denies any worsening significant claudication symptoms since being seen here a year ago. He states he feels he is able to complete his normal daily activities. He denies any rest pain, nonhealing ulcer ulcers, or other concerns. He does continue to smoke daily. His aortoiliac ultrasound performed prior to today's appointment demonstrates an increase in size of his infrarenal abdominal aortic aneurysm, now measuring 5.1 x 5.1 cm. This previously measured 4.6 cm 1 year ago. Additionally it demonstrates a known chronic occlusion of the right common iliac artery, and a severe stenosis of his left common iliac artery. This is also unchanged in comparison to the previous ultrasound. Patient's bilateral lower extremity arterial ultrasound demonstrates monophasic inflow bilaterally, but no significant stenosis noted throughout the remainder of his lower extremities. His right JAKE is 0.72 and his left is 0.59 Allergies Allergy/AdvReac Type Severity Reaction Status Date / Time No Known Allergies Allergy Verified 09/14/22 06:24 Home Medications Medication Instructions Recorded Confirmed Type cilostazol 100 mg tablet 100 mg PO BID 03/03/21 08/09/22 History lisinopril 20 mg tablet 20 mg PO QAM 03/03/21 08/09/22 History meloxicam 15 mg tablet 15 mg PO HS 03/03/21 08/09/22 History metformin 500 mg tablet 500 mg PO BID 03/03/21 08/09/22 History simvastatin 40 mg tablet 40 mg PO QAM 03/03/21 08/09/22 History terazosin 2 mg capsule 2 mg PO QAM 03/03/21 08/09/22 History amlodipine 5 mg tablet 5 mg PO QDL 07/07/22 08/09/22 History aspirin 81 mg tablet,delayed 81 mg PO QAM 08/09/22 08/09/22 History release Past Med/Surg History Medical History AAA (abdominal aortic aneurysm) CKD (chronic kidney disease) DM type 2 (diabetes mellitus, type 2) History of kidney stones Hypercholesteremia Hypertension PVD (peripheral vascular disease) Sleep apnea unable to tolerate CPAP Surgical History History of cardiac catheterization 1994 no stents History of cataract surgery History of colonoscopy History of tonsillectomy Hx of inguinal herniorrhaphy S/P aortogram Family History Other No family history of adverse response to anesthesia Social History Smoking Status: Heavy tobacco smoker Cigarettes Per Day: 30 cigs/day; Second Hand Exposure: No; Do You Dip or Chew Tobacco: No; Tobacco Cessation Education Requested by Patient: No Hx Alcohol Use: No Hx Substance Use: No Preferred Language: Sinhala Communication Ability: Effective Wireless Field Technician Required: No Beliefs That Will Affect Care: None Current Living Situation: Spouse Feels Safe at Home: Yes Safety Concerns: Feels Safe At This Time Assistive Devices: Glasses Review of Systems All systems reviewed & are unremarkable except as noted in HPI & below Physical Exam Physical Exam: Constitutional: In general patient is an obese but healthy-appearing well-nourished well-developed middle-aged male no distress. Is alert and without any focal deficits. His heart is regular, his lungs are decreased throughout but clear bilaterally. His abdomen soft nontender with normoactive bowel sounds in 4 quadrants. I am unable to appreciate a pulsatile mass due to body habitus. Brachial and radial pulses are +3. Femoral pulses are nonpalpable. Lower extremity DP pulses are +1. Brisk capillary fill and no sign of distal ischemia Results & Data ([facility]) Vital Signs (Past 12 Hours) Vital Signs Temp Pulse Resp BP BP Pulse Ox O2 Del Method 09/14/22 06:26 37.1 C 95 H 20 115/87 129/81 95 Room Air
[2022-09-14] MEDS ORDERED: ePHEDrine sulfate 50 MG/ML AMP IV PRN (08:24)
[2022-09-14] MEDS ORDERED: PROMETHAZINE HCL 6.25 MG in SODIUM CHLORIDE 0.9% 50 ML IV PRN (08:24)
[2022-09-14] MEDS ORDERED: ONDANSETRON INJ 2 MG/ML 2 ML VIAL IV PRN ×2 (08:24→13:40)
[2022-09-14] MEDS ORDERED: ATROPINE SULFATE 0.1 MG/ML 10ML SYR IV PRN (08:24)
[2022-09-14] MEDS ORDERED: fentaNYL citrate 100 MCG/2 ML VIAL IV PRN (08:24)
[2022-09-14] MEDS ORDERED: LACTATED RINGER'S 1,000 ML IV SCH (08:30)
[2022-09-14] MEDS: VISIPAQUE IV ONE ×2 (10:20→11:16)
[2022-09-14] MEDS ORDERED: GLYCOPYRROLATE 0.2 MG/ML VIAL ONE (10:23)
[2022-09-14] MEDS ORDERED: NEOSTIGMINE METHYLSULFATE 1 MG/ML 10ML VIAL ONE (10:23)
[2022-09-14] MEDS ORDERED: VISIPAQUE IV PRN (11:16)
--- NOTE | 2022-09-14 11:37 | Post Operative Brief Note ---
Immediate Post Op Note v1 Date of Surgery September 14, 2022 Pre & Post Diagnosis Operation Date: 09/14/22 08:00 Pre-Op Diagnosis: Abdominal Aortic Aneurysm, Right iliac artery occlusion Post-Op Diagnosis: Abdominal Aortic Aneurysm, Right iliac artery occlusion I identified the patient and participated in the time-out.: Yes Procedure Operation Date: 09/14/22 08:00 Actual Procedures p Endovascular Aortic Aneurysm Repair with Femoral to Femoral Bypass with Graft, Bilateral femroal artery exposures, Attempted Aortic Cannulation from right groin, Aortic cannulation from left side, Ultrasound Localization of Common Femoral Arteries Bilaterally(Bilateral) - Khoi Castillo MD Surgeon Khoi Castillo MD [employer],PAC Estimated Blood Loss 150 Findings Consistent with Post-Op Diagnosis Drains Chaudhary Catheter Anesthesia Type General Complications none Disposition Accompanied Patient To Recovery: No Disposition: Recovery Room
[2022-09-14 12:05] LABS: Hematocrit (blood only) 39.2 % (40.1-51.0)
--- NOTE | 2022-09-14 12:34 | Anesthesiology Progress Note ---
Date of Service September 14, 2022 Anesthesia Post Procedure Vital Signs Vital Signs: Temp Pulse Pulse Resp BP BP BP 09/14/22 12:30 103 H 20 118/89 127/62 09/14/22 12:10 101 H 18 136/64 118/63 09/14/22 12:00 103 H 20 118/93 139/79 09/14/22 12:20 100 H 20 144/100 H 124/63 09/14/22 11:50 100 H 18 133/104 H 139/73 09/14/22 11:44 36.4 C L 96 H 20 136/77 126/73 09/14/22 06:26 37.1 C 95 H 20 115/87 129/81 Pulse Ox O2 Del Method O2 Flow Rate 09/14/22 12:30 95 Oxymask 4 09/14/22 12:10 94 Oxymask 6 09/14/22 12:00 94 Oxymask 6 09/14/22 12:20 95 Oxymask 4 09/14/22 11:50 93 Oxymask 8 09/14/22 11:44 92 Oxymask 8 09/14/22 06:26 95 Room Air Transfer of Care Handoff Completed per policy Notes Mental Status: alert / awake / arousable Patient Amnestic to Procedure: Yes Nausea / Vomiting: adequately controlled Pain: adequately controlled Airway Patency, RR, SpO2: stable & adequate BP & HR: stable & adequate Hydration State: stable & adequate Anesthetic Complications: no major complications apparent
[2022-09-14] MEDS ORDERED: PHARMACY GLYCEMIC MGMT CONSULT PRN (13:40)
[2022-09-14] MEDS: amLODIPine BESYLATE 5 MG TAB PO SCH (14:07)
[2022-09-14] MEDS: LACTATED RINGER'S 1,000 ML IV SCH ×2 (14:07→22:45)
[2022-09-14] MEDS: oxyCODONE/ACETAMINOPHEN 5mg/325mg TAB PO PRN (14:07)
--- NOTE | 2022-09-14 14:43 | Pharmacy Report ---
Pharmacy Glycemic Short Note 2 - Date of Service September 14, 2022 - Glycemic Short BSG Results (Last 24 hours): 09/14/22 09/14/22 09/14/22 06:36 11:49 13:38 POC Glucose 121 H 157 H 163 H OUTPATIENT ANTIDIABETIC REGIMEN: * Metformin * HbA1c 6.0% on 08/17/22 ASSESSMENT: * 71 yo M admitted 09/14 and is POD 0 s/p AAA repair w other endovascular procedures. * Post-op BSG's slightly above goal. Dexamethasone 4 mg IV overriden in OR * Will give one-time dose of Lantus - may or may not need to be continued * Will start weight-based moderate stress Novolog but w slightly tighter carb ratio 2nd steroids. Will likely need to be loosened when steroid effects wear off. PLAN FOR INPATIENT GLYCEMIC CONTROL: * Hold outpatient oral diabetes medications * Basal insulin * Lantus 20 units SC x1 * Bolus insulin * NovoLog per scale ACHS or Q6hrs while NPO * Goal Range: Low 110 mg/dL - High 140 mg/dL * Correction Factor: 20 mg/dL/unit * Nutritional / Prandial insulin per carb ratio of 1 unit per 6 grams CHO consumed
[2022-09-14] MEDS ORDERED: LANTUS PER UNIT CHARGE SQ ONE (14:45)
[2022-09-14] MEDS: MoRPHine SULFATE 4 MG/ML 1 ML CARP\\VIAL IV PRN ×2 (15:19→22:20)
[2022-09-14] MEDS: ceFAZolin 2000MG 2,000 MG/15 ML SYR IV SCH (16:00)
--- NOTE | 2022-09-14 16:51 | Critical Care Consultation ---
Date of Consultation September 14, 2022 Assessment & Plan (1) AAA (abdominal aortic aneurysm): Status post endovascular repair. Pain controlled, blood pressure parameters and antiplatelet therapy per vascular surgery. Continue fluids. Monitor for MIKE. Monitor urine output closely. Wound VAC in place. Thank you for the consult. Critical services are available as needed as the patient remains in the ICU. (2) Post-op pain: He is having some abdominal pain. May need to consider abdominal x-ray. Monitor for postop ileus. Plan Discussed with the patient's daughter at bedside and reassured her. History of Present Illness Reason for Consultation: Post endovascular aortic aneurysm repair and femoral to femoral bypass with graft repair. Attending Physician: Khoi Castillo MD History of Present Illness 71-year-old male with a history of systolic CHF, CKD stage III, abdominal aortic aneurysm and severe aortoiliac disease who presented for elective procedure today. He is having continual abdominal pain postop. Nursing notified vascular surgery. We will have a low threshold for abdominal x-ray. Allergies Allergy/AdvReac Type Severity Reaction Status Date / Time No Known Allergies Allergy Verified 09/14/22 06:24 Home Medications Medication Instructions Recorded Confirmed Type cilostazol 100 mg tablet 100 mg PO BID 03/03/21 09/14/22 History lisinopril 20 mg tablet 20 mg PO QAM 03/03/21 09/14/22 History meloxicam 15 mg tablet 15 mg PO HS 03/03/21 09/14/22 History metformin 500 mg tablet 500 mg PO BID 03/03/21 09/14/22 History simvastatin 40 mg tablet 40 mg PO QAM 03/03/21 09/14/22 History terazosin 2 mg capsule 2 mg PO QAM 03/03/21 09/14/22 History amlodipine 5 mg tablet 5 mg PO QDL 07/07/22 09/14/22 History aspirin 81 mg tablet,delayed 81 mg PO QAM 08/09/22 09/14/22 History release Patient History Medical History (Updated 09/14/22 @ 17:02 by Domingo Kiser MD) AAA (abdominal aortic aneurysm) CKD (chronic kidney disease) DM type 2 (diabetes mellitus, type 2) History of kidney stones Hypercholesteremia Hypertension Post-op pain PVD (peripheral vascular disease) Sleep apnea unable to tolerate CPAP Surgical History History of cardiac catheterization 1994 > no stents History of cataract surgery History of colonoscopy History of tonsillectomy Hx of inguinal herniorrhaphy S/P aortogram Family History Other No family history of adverse response to anesthesia Social History Smoking Status: Heavy tobacco smoker Cigarettes Per Day: 30; Second Hand Exposure: Yes; Do You Dip or Chew Tobacco: No; Tobacco Cessation Education Requested by Patient: No Hx Alcohol Use: No Hx Substance Use: No Preferred Language: Setswana Communication Ability: Effective Forensic Psychiatrist Required: No Beliefs That Will Affect Care: None Current Living Situation: Spouse Other Information That Helps Us Care for You: No Feels Safe at Home: Yes Safety Concerns: Feels Safe At This Time Assistive Devices: None Review of Systems Review of Systems: All systems reviewed & are unremarkable except as noted in HPI & below Physical Exam Physical Exam: Constitutional: Patient appears to be of their stated age. Patient is in no apparent distress. Patient is well-developed. Eyes: Pupils are equal round and reactive to light. Conjunctivae are normal. Anicteric sclera. Ears nose, mouth and throat: Mallampati class 2. Normal posterior oropharynx. Uvula is midline. Neck: Trachea is midline. Visual inspection is normal. Respiratory: Clear to auscultation bilaterally. No use of accessory muscles. No significant clubbing noted. Cardiovascular: Regular rate and rhythm. No murmurs. No edema. Distal pulses intact Gastrointestinal: Normal bowel sounds, soft, nontender and nondistended. No hepatosplenomegaly noted. Musculoskeletal: No cyanosis. Patient is able to move all extremities. Strength is 5 out of 5 in the upper and lower extremities. Skin: No rashes, warm dry and intact. Neurologic: No obvious focal neurological deficits seen. Psychiatric: Alert and oriented x3 with a euthymic affect. Results & Data Results & Data ([facility]) Vital Signs (Past 12 Hours) Vital Signs Temp Pulse Pulse Pulse Resp BP BP 09/14/22 14:40 36.9 C 95 H 16 09/14/22 16:00 92 H 12 09/14/22 16:00 131/68 09/14/22 15:30 96 H 14 09/14/22 15:02 132/102 H 09/14/22 15:02 95 H 16 09/14/22 15:00 98 H 17 09/14/22 13:40 09/14/22 13:40 36.9 C 100 H 22 09/14/22 14:30 101 H 15 09/14/22 14:25 101 H 19 99/80 L 09/14/22 12:50 104 H 18 122/81 09/14/22 12:40 36.2 C L 103 H 18 104/85 09/14/22 12:30 103 H 20 118/89 09/14/22 12:10 101 H 18 136/64 09/14/22 12:00 103 H 20 118/93 09/14/22 12:20 100 H 20 144/100 H 09/14/22 11:50 100 H 18 133/104 H 09/14/22 11:44 36.4 C L 96 H 20 136/77 09/14/22 06:26 37.1 C 95 H 20 115/87 BP BP Pulse Ox O2 Del Method O2 Flow Rate 09/14/22 14:40 151/71 H 95 Nasal Cannula 3 09/14/22 16:00 96 09/14/22 16:00 09/14/22 15:30 90 09/14/22 15:02 09/14/22 15:02 95 09/14/22 15:00 94 09/14/22 13:40 Nasal Cannula 3 09/14/22 13:40 138/73 97 Nasal Cannula 3 09/14/22 14:30 97 09/14/22 14:25 93 09/14/22 12:50 119/58 L 96 Oxymask 3 09/14/22 12:40 117/60 96 Oxymask 3 09/14/22 12:30 127/62 95 Oxymask 4 09/14/22 12:10 118/63 94 Oxymask 6 09/14/22 12:00 139/79 94 Oxymask 6 09/14/22 12:20 124/63 95 Oxymask 4 09/14/22 11:50 139/73 93 Oxymask 8 09/14/22 11:44 126/73 92 Oxymask 8 09/14/22 06:26 129/81 95 Room Air Coding Level of Care Code 32476 Inpt Consult Level 4 Diagnoses AAA (abdominal aortic aneurysm) I71.4 Post-op pain G89.18
[2022-09-14] MEDS: INSULIN ASPART PER UNIT SC SCH ×2 (17:51→20:33)
[2022-09-14] MEDS: cilostazoL 100 MG TAB PO SCH (20:32)
[2022-09-14] MEDS: MELOXICAM 7.5 MG TAB PO SCH (20:33)
[2022-09-14] MEDS ORDERED: LACTATED RINGER'S 500 ML IV ONE (22:14)
[2022-09-15] MEDS: ceFAZolin 2000MG 2,000 MG/15 ML SYR IV SCH (00:05)
[2022-09-15] MEDS: oxyCODONE/ACETAMINOPHEN 5mg/325mg TAB PO PRN ×2 (03:53→09:17)
[2022-09-15 04:44] LABS: Basophils # (auto) 0.02 K/uL (0-0.2); Basophils % (auto) 0.2 %; Eosinophils # (auto) 0.01 K/uL (0-0.50); Eosinophils % (auto) 0.1 %; Immature Granulocytes # (auto) 0.06 K/uL (0.00-0.02); Immature Granulocytes % (auto) 0.5 %; Lymphocytes # (auto) 1.16 K/uL (1.2-3.4); Lymphocytes % (auto) 8.9 %; Mean Corpuscular Hemoglobin 27.1 pg (25.0-34.0); Mean Corpuscular Hgb Conc 33.3 g/dL (32.0-36.0); Mean Corpuscular Volume 81.4 fL (80.0-100.0); Mean Platelet Volume 10.4 fL (9.4-12.4); Monocytes # (auto) 0.99 K/uL (0.24-0.82); Monocytes % (auto) 7.6 %; Neutrophils # (auto) 10.74 K/uL (1.4-6.5); Neutrophils % (auto) 82.7 %; Platelet Count 144 K/uL (130-400); RDW Coefficient of Variation 14.8 % (11.5-14.5); RDW Standard Deviation 43.5 fL (36.4-46.3); Red Blood Count 4.42 M/uL (4.63-6.08); White Blood Count 12.98 K/ul (4.8-10.8)
[2022-09-15 05:30] LABS: BUN Creatinine Ratio 12.4 (10-20); Calcium 8.1 mg/dl (8.5-10.1); Creatinine Clr Calc Pharmacy 39.5 ml/min; Est GFR (African American) 33.6 ml/min
[2022-09-15] MEDS: LACTATED RINGER'S 1,000 ML IV SCH (06:36)
[2022-09-15] MEDS ORDERED: CARBOHYDRATES FOR HYPOGLYCEMIA PO PRN (07:15)
[2022-09-15] MEDS ORDERED: GLUCOSE 10 TAB/TUBE PO PRN (07:15)
[2022-09-15] MEDS ORDERED: GLUCAGON FOR INJ 1 MG VIAL IM PRN (07:15)
[2022-09-15] MEDS ORDERED: GLUCOSE 40% GEL 15 GM TUBE PO PRN (07:15)
[2022-09-15] MEDS ORDERED: DEXTROSE 50% 50 ML SYRINGE IV PRN (07:15)
[2022-09-15] MEDS: SIMVASTATIN 40 MG TAB PO SCH (08:17)
[2022-09-15] MEDS: ASPIRIN 81 MG ECTAB PO SCH (08:17)
[2022-09-15] MEDS: cilostazoL 100 MG TAB PO SCH ×2 (08:17→20:54)
[2022-09-15] MEDS: INSULIN ASPART PER UNIT SC SCH ×4 (08:18→20:55)
[2022-09-15] MEDS ORDERED: lisinopril 20 MG TAB PO SCH (09:00)
[2022-09-15] MEDS: TERAZOSIN HCL 1 MG CAP PO SCH (10:05)
--- NOTE | 2022-09-15 10:34 | Critical Care Progress Note ---
Date of Service September 15, 2022 Assessment & Plan (1) AAA (abdominal aortic aneurysm): (2) Post-op pain: (3) MIKE (acute kidney injury): Plan Hemodynamic stable. Patient with MIKE. Recommend holding lisinopril. Rest of antihypertensives per primary team. Stable for downgrade out of ICU. Admission and Anticipated Discharge Date Admission Date: September 14, 2022 Subjective Patient sitting up in bed and tolerating diet. Pain better controlled. Urine output adequate. Renal function has worsened. Art line in place. Hemodynamically stable. Review of Systems Review of Systems: All systems reviewed & are unremarkable except as noted in HPI & below Physical Exam Physical Exam: Constitutional: Patient appears to be of their stated age. Patient is in no apparent distress. Patient is well-developed. Eyes: Pupils are equal round and reactive to light. Conjunctivae are normal. Anicteric sclera. Ears nose, mouth and throat: Mallampati class 2. Normal posterior oropharynx. Uvula is midline. Neck: Trachea is midline. Visual inspection is normal. Respiratory: Clear to auscultation bilaterally. No use of accessory muscles. No significant clubbing noted. Cardiovascular: Regular rate and rhythm. No murmurs. No edema. Distal pulses intact Gastrointestinal: Normal bowel sounds, soft, nontender and nondistended. No hepatosplenomegaly noted. Musculoskeletal: No cyanosis. Patient is able to move all extremities. Strength is 5 out of 5 in the upper and lower extremities. Skin: No rashes, warm dry and intact. Neurologic: No obvious focal neurological deficits seen. Psychiatric: Alert and oriented x3 with a euthymic affect. Results & Data Results & Data ([facility]) Vital Signs (Past 12 Hours) Vital Signs Temp Pulse Pulse Resp BP BP Pulse Ox 09/15/22 09:00 86 19 90 09/15/22 09:00 94/76 L 09/15/22 08:00 83 15 93 09/15/22 08:00 111/83 09/15/22 07:25 157/85 H 09/15/22 07:25 89 15 93 09/15/22 07:00 80 11 L 87 L 09/15/22 06:45 82 14 92 09/15/22 08:00 86 09/15/22 08:21 36.8 C 89 15 157/85 H 94 09/15/22 06:00 86 10 L 94 09/15/22 06:00 160/78 H 09/15/22 05:00 86 12 92 09/15/22 04:00 82 14 92 09/15/22 04:00 36.6 C 148/81 H 09/15/22 03:00 74 14 85 L 09/15/22 03:00 119/82 09/15/22 02:00 91 H 17 95 09/15/22 02:00 162/81 H 09/15/22 01:00 91 H 15 92 09/15/22 01:00 130/87 09/15/22 00:00 36.7 C 76 14 84 L 09/15/22 00:00 150/79 H 09/14/22 23:00 89 17 95 09/15/22 00:00 93 H O2 Del Method 09/15/22 09:00 09/15/22 09:00 09/15/22 08:00 09/15/22 08:00 09/15/22 07:25 09/15/22 07:25 09/15/22 07:00 09/15/22 06:45 09/15/22 08:00 09/15/22 08:21 Room Air 09/15/22 06:00 09/15/22 06:00 09/15/22 05:00 09/15/22 04:00 09/15/22 04:00 09/15/22 03:00 09/15/22 03:00 09/15/22 02:00 09/15/22 02:00 09/15/22 01:00 09/15/22 01:00 09/15/22 00:00 09/15/22 00:00 09/14/22 23:00 09/15/22 00:00 Coding Level of Care Code 88023 Subseq Hosp Care Lvl 2 Diagnoses AAA (abdominal aortic aneurysm) I71.4 Post-op pain G89.18 MIKE (acute kidney injury) N17.9
[2022-09-15] MEDS: amLODIPine BESYLATE 5 MG TAB PO SCH (12:04)
[2022-09-15] MEDS ORDERED: SODIUM CHLORIDE 0.9% 500 ML IV SCH (15:00)
--- NOTE | 2022-09-15 15:17 | Surgery Progress Note ---
Date of Service September 15, 2022 Assessment & Plan (1) S/P endovascular aneurysm repair: Plan: Pt POD #1 after EVAR with L to R fem fem BPG. Overall doing ok. VSS. Continue to increase activity and monitor UO. Discussed with Dr Castillo, will transfer to med/surg. (2) MIKE (acute kidney injury): Plan: Pt with Cr of 2.18, increased from baseline of 1.5. Gentle hydration. Continue to monitor. Admission and Anticipated Discharge Date Admission Date: September 14, 2022 Subjective 71 yo m POD #1 after EVAR with L to R fem fem BPG, seen in f/u today. Pt admits pain in BL groins and across low abd with movement. Denies pain in feet. Admits poor appetite, but denies nausea/vomiting. Admits fatigue. Did get OOB today with walker. Cr increased today. Has not urinated since Chaudhary catheter removal this AM. Review of Systems Review of Systems: All systems reviewed & are unremarkable except as noted in HPI & below Physical Exam Constitutional: WD/WN, vitals as above not in distress Respiratory: normal respiratory effort, lungs clear to auscultation Ausc ultation: + diminished lung sounds Cardiovascular: Rate/Rhythm: regular rate and regular rhythm Vessels: fe moral pulses present (BL prevena dressings in place), posterior tibial pulses present (+1 BLE), dorsalis pedis pulses present (+1 BLE) and radial pulses present; + abnormal peripheral pulses Extremities: normal capillary refill Gastrointestinal (Abdomen): Inspection/Auscultation: abdomen normal to inspection and normal bowel sounds Percussion/Palpation: abdomen soft; abdomen nontender Musculoskeletal: no cyanosis or clubbing, extremities motor strength 5/5 Skin: no rashes, warm and dry + ecchymosis (Mild ecchymosis noted over graft tunnel/pelvis) and + incision (BL groins prevena in place. ) Neurologic: moves all extremities and awake; no focal motor deficits and not confused Psychiatric: A+Ox3, euthymic affect Results & Data ([facility]) Vital Signs (Past 12 Hours) Vital Signs Temp Pulse Pulse Resp BP BP Pulse Ox 09/15/22 12:00 67 17 92 09/15/22 12:00 101/55 L 09/15/22 11:33 16 96 09/15/22 11:01 83/60 L 09/15/22 11:01 24 94 09/15/22 10:01 15 94 09/15/22 10:01 117/70 09/15/22 10:00 73 16 09/15/22 11:59 86 09/15/22 09:00 86 19 90 09/15/22 09:00 94/76 L 09/15/22 08:00 83 15 93 09/15/22 08:00 111/83 09/15/22 07:25 157/85 H 09/15/22 07:25 89 15 93 09/15/22 07:00 80 11 L 87 L 09/15/22 06:45 82 14 92 09/15/22 08:00 86 09/15/22 08:21 36.8 C 89 15 157/85 H 94 09/15/22 06:00 86 10 L 94 09/15/22 06:00 160/78 H 09/15/22 05:00 86 12 92 09/15/22 04:00 82 14 92 09/15/22 04:00 36.6 C 148/81 H O2 Del Method 09/15/22 12:00 09/15/22 12:00 09/15/22 11:33 09/15/22 11:01 09/15/22 11:01 09/15/22 10:01 09/15/22 10:01 09/15/22 10:00 09/15/22 11:59 09/15/22 09:00 09/15/22 09:00 09/15/22 08:00 09/15/22 08:00 09/15/22 07:25 09/15/22 07:25 09/15/22 07:00 09/15/22 06:45 09/15/22 08:00 09/15/22 08:21 Room Air 09/15/22 06:00 09/15/22 06:00 09/15/22 05:00 09/15/22 04:00 09/15/22 04:00
[2022-09-15] MEDS: SODIUM CHLORIDE 0.9% 1000ML 1,000 ML IV SCH (18:28)
[2022-09-15] MEDS: MoRPHine SULFATE 4 MG/ML 1 ML CARP\\VIAL IV PRN (20:14)
[2022-09-15] MEDS: MELOXICAM 7.5 MG TAB PO SCH (20:53)
[2022-09-16 04:34] LABS: Basophils # (auto) 0.02 K/uL (0-0.2); Basophils % (auto) 0.2 %; Hematocrit (blood only) 34.4 % (40.1-51.0); Hemoglobin 11.4 g/dl (14.0-18.0); Immature Granulocytes # (auto) 0.08 K/uL (0.00-0.02); Immature Granulocytes % (auto) 0.6 %; Lymphocytes # (auto) 0.93 K/uL (1.2-3.4); Lymphocytes % (auto) 7.1 %; Mean Corpuscular Hemoglobin 27.2 pg (25.0-34.0); Mean Corpuscular Hgb Conc 33.1 g/dL (32.0-36.0); Mean Corpuscular Volume 82.1 fL (80.0-100.0); Mean Platelet Volume 10.5 fL (9.4-12.4); Monocytes # (auto) 1.11 K/uL (0.24-0.82); Monocytes % (auto) 8.5 %; Neutrophils # (auto) 10.91 K/uL (1.4-6.5); Neutrophils % (auto) 83.6 %; Platelet Count 119 K/uL (130-400); RDW Coefficient of Variation 14.8 % (11.5-14.5); RDW Standard Deviation 44.1 fL (36.4-46.3); Red Blood Count 4.19 M/uL (4.63-6.08); White Blood Count 13.05 K/ul (4.8-10.8)
[2022-09-16 04:53] LABS: BUN Creatinine Ratio 14.2 (10-20); Creatinine Clr Calc Pharmacy 36.2 ml/min; Est GFR (Non-African American) 25.9 ml/min; Potassium 4.3 mmol/L (3.5-5.1)
[2022-09-16] MEDS: SODIUM CHLORIDE 0.9% 1000ML 1,000 ML IV SCH ×2 (06:31→20:40)
[2022-09-16] MEDS: cilostazoL 100 MG TAB PO SCH ×2 (08:23→20:41)
[2022-09-16] MEDS: TERAZOSIN HCL 1 MG CAP PO SCH (08:23)
[2022-09-16] MEDS: ASPIRIN 81 MG ECTAB PO SCH (08:23)
[2022-09-16] MEDS: SIMVASTATIN 40 MG TAB PO SCH (08:23)
[2022-09-16] MEDS: INSULIN ASPART PER UNIT SC SCH ×4 (08:24→20:47)
--- NOTE | 2022-09-16 09:03 | Nephrology Consultation ---
Date of Consultation September 16, 2022 Assessment & Plan (1) MIKE (acute kidney injury): * Nonoliguric MIKE likely related to YOSHI * 09/16/[address] films reviewed. Stent appears below origin to renal arteries * Agree w/ holding Lisinopril, Meloxicam, Metformin and Terazosin * Continue gentle hydration w/ 0.9 NS * Keep Chaudhary catheter in place * Monitor PRP, UO. Will order repeat urinalysis w/ microscopy (2) Chronic kidney disease (CKD) stage G3b/A1, moderately decreased glomerular filtration rate (GFR) between 30-44 mL/min/1.73 square meter and albuminuria creatinine ratio less than 30 mg/g: * CKD stage G3b/A1 (advanced impairment). Baseline Cr has been 1.7 - 2.0 w/ EGFR 34 cc/min. Urinalysis has been + for protein. UACR 0.05. (3) AAA (abdominal aortic aneurysm): * s/p PEVAR with fem-fem bypass 09/14/22 (4) Hypertension, essential: * Relative hypotension following surgery * Lisinopril, Amlodipine are being held and IV hydration provided History of Present Illness Reason for Consultation: MIKE/CKD Attending Physician: Khoi Castillo MD History of Present Illness Mr. Umaña is a 71 year old white male who is seen at the request of Dr. Castillo for evaluation of MIKE/CKD. Medical records in the EMR were reviewed today and are summarized as follows: Mr. Umaña has CKD stage G3b/A1 (advanced impairment). Baseline Cr has been 1.7 - 2.0 w/ EGFR 34 cc/min. Urinalysis has been + for protein. UACR 0.05. 09/16/[address] reveals no hydronephrosis, retained contrast within kidneys due to prior PEVAR and aortic stent below the origin of the renal arteries. Mr. Umaña's medical history is significant for tobacco use, PVD w/ claudication, RADHA, kidney stones, HTN, dyslipidemia, AODM, and AAA. Recently Mr. Umaña's AAA was found to have increased to 5 x 5 cm. On 09/14/22 he underwent PEVAR with fem - fem bipass. ~ 164 cc IV contrast was administered during the procedure. Post op Mr. Umaña has been admitted to the ICU. He has been oliguric and Cr has risen to 2.58. Lisinopril, Meloxicam, Metformin and Terazosin have been held. Chaudhary catheter remains in place Allergies Allergy/AdvReac Type Severity Reaction Status Date / Time No Known Allergies Allergy Verified 09/14/22 06:24 Home Medications Medication Instructions Recorded Confirmed Type cilostazol 100 mg tablet 100 mg PO BID 03/03/21 09/14/22 History lisinopril 20 mg tablet 20 mg PO QAM 03/03/21 09/14/22 History meloxicam 15 mg tablet 15 mg PO HS 03/03/21 09/14/22 History metformin 500 mg tablet 500 mg PO BID 03/03/21 09/14/22 History simvastatin 40 mg tablet 40 mg PO QAM 03/03/21 09/14/22 History terazosin 2 mg capsule 2 mg PO QAM 03/03/21 09/14/22 History amlodipine 5 mg tablet 5 mg PO QDL 07/07/22 09/14/22 History aspirin 81 mg tablet,delayed 81 mg PO QAM 08/09/22 09/14/22 History release Patient History Medical History AAA (abdominal aortic aneurysm) MIKE (acute kidney injury) CKD (chronic kidney disease) DM type 2 (diabetes mellitus, type 2) History of kidney stones Hypercholesteremia Hypertension Hypoxia RADHA (obstructive sleep apnea) Post-op pain PVD (peripheral vascular disease) Sleep apnea unable to tolerate CPAP Surgical History History of cardiac catheterization 1994 no stents History of cataract surgery History of colonoscopy History of tonsillectomy Hx of inguinal herniorrhaphy S/P aortogram S/P endovascular aneurysm repair Family History Other No family history of adverse response to anesthesia Social History Smoking Status: Heavy tobacco smoker Cigarettes Per Day: 30; Second Hand Exposure: Yes; Do You Dip or Chew Tobacco: No; Tobacco Cessation Education Requested by Patient: No Hx Alcohol Use: No Hx Substance Use: No Preferred Language: Burundian Communication Ability: Effective Junk Removal Specialist Required: No Beliefs That Will Affect Care: None Current Living Situation: Spouse Other Information That Helps Us Care for You: No Feels Safe at Home: Yes Safety Concerns: Feels Safe At This Time Assistive Devices: Cane and Walker Review of Systems Constitutional: no fever Eyes: no problem reported Ear, Nose, Mouth, Throat: no problem reported Respiratory: no cough and no dyspnea Cardiovascular: no chest pain Gastrointestinal: no abdominal pain Genitourinary: no dysuria or no urinary hesitancy Neurologic: no confusion Physical Exam Constitutional: not in distress Eyes: PERRL, conjunctivae normal, anicteric sclerae ENMT: external ear and nose normal, oropharynx normal Neck: trachea midline, no thyromegaly Respiratory: normal respiratory effort, lungs clear to auscultation Cardiovascular: RRR, no murmur, no edema Gastrointestinal (Abdomen): normal bowel sounds, soft, nontender, no hepatosplenomegaly Neurologic: awake; not obtunded Results & Data ([facility]) Vital Signs (Past 12 Hours) Vital Signs Temp Pulse Resp BP Pulse Ox O2 Del Method O2 Flow Rate 09/16/22 08:00 94 H 15 95 09/16/22 08:00 107/64 09/16/22 07:00 96 H 16 88 L 09/16/22 07:00 106/72 09/16/22 06:00 95 H 14 92 09/16/22 06:00 119/76 09/16/22 05:00 100 H 16 88 L 09/16/22 05:00 111/86 09/16/22 08:00 101 H 09/16/22 07:00 37.3 C 09/16/22 07:31 Room Air 09/16/22 04:50 101 H 14 89 L 09/16/22 04:40 97 H 15 90 09/16/22 04:30 99 H 18 95 09/16/22 04:20 101 H 14 96 09/16/22 04:10 101 H 15 94 09/16/22 04:00 100 H 18 96 Nasal Cannula 2 09/16/22 04:00 120/69 09/16/22 03:50 100 H 15 95 09/16/22 03:40 102 H 15 09/16/22 03:30 103 H 16 94 09/16/22 03:20 99 H 15 94 09/16/22 03:10 101 H 14 09/16/22 03:00 98 H 14 95 09/16/22 03:00 147/106 H 09/16/22 02:50 101 H 14 09/16/22 02:40 101 H 16 89 L 09/16/22 02:30 101 H 15 94 09/16/22 02:20 104 H 15 09/16/22 02:10 101 H 16 09/16/22 02:00 102 H 17 92 09/16/22 02:00 130/103 H 09/16/22 01:50 102 H 15 09/16/22 01:40 100 H 14 93 09/16/22 01:30 105 H 16 92 09/16/22 01:20 105 H 14 92 09/16/22 01:10 110 H 20 96 09/16/22 01:00 106 H 16 94 09/16/22 01:00 141/97 H 09/16/22 00:50 106 H 15 94 09/16/22 00:40 102 H 14 91 09/16/22 00:30 105 H 16 95 09/16/22 00:20 104 H 20 93 09/16/22 00:10 105 H 14 09/16/22 00:00 102 H 15 94 Nasal Cannula 2 09/16/22 00:00 143/94 H 09/15/22 23:50 103 H 15 09/16/22 03:45 37 C 09/15/22 23:40 103 H 16 95 09/15/22 23:30 103 H 18 95 09/15/22 23:20 100 H 18 94 09/15/22 23:10 111 H 16 94 09/15/22 23:00 103 H 17 Nasal Cannula 2 09/15/22 23:00 123/88 09/15/22 22:50 106 H 18 78 L 09/15/22 22:40 104 H 18 93 09/15/22 22:30 101 H 17 92 09/15/22 22:20 102 H 19 09/15/22 22:10 101 H 16 94 09/15/22 22:00 99 H 17 92 09/15/22 22:00 161/94 H Nasal Cannula 2 09/15/22 21:50 99 H 14 92 09/15/22 21:40 101 H 15 90 09/15/22 21:30 100 H 17 91 09/15/22 21:20 96 H 15 95 09/15/22 21:10 97 H 16 95 09/15/22 23:49 105 H 09/15/22 22:57 37.1 C Laboratory Results Laboratory Tests 09/16/22 09/16/22 04:20 04:20 WBC 13.05 H Hgb 11.4 L Hct 34.4 L Plt Count 119 L Sodium 135 L Potassium 4.3 Chloride 105 Carbon Dioxide 23 BUN 34 H Creatinine 2.39 H Glucose 118 H Calcium 8.0 L Laboratory Tests 05/02/19 03/03/21 03/04/21 10:56 14:07 06:05 Creatinine 1.46 H 2.44 H 1.92 H D 03/09/21 08/17/22 00:00 13:56 Creatinine 1.7 H 1.55 H Diagnostic Findings 06/30 Abdominal CTA: 1. Infrarenal aortic aneurysm measuring 50 mm, increased from prior exam where it measured 45 mm. There is significant stenosis in the origin of the left iliac arteries. The right common iliac artery is not opacified, although there is distal reconstitution of the internal and external iliac arteries. The origin of the great vessels of the abdomen are patent. 2. 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 3. Diverticulosis without diverticulitis. 4. 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 09/16/[address]: 1. Postsurgical changes of femorofemoral bypass placement. 2. Inhomogeneous contrast retention in the bilateral kidneys may reflect acute renal failure, clinical correlation is recommended. No evidence of hydronephrosis. 3. Stable appearance of abdominal aortic aneurysm and there is interval placement of an aortobifemoral stent. The right femoral component terminates before the origin of the right femoral artery. PG Care Time/CCT Total # of Minutes Spent Total Time Spent with Patient: Total time spent is greater than 50% in coordination of care (as documented) at patient's floor/unit and/or counseling patient: Coding Level of Care Code 83301 Inpt Consult Level 5 Diagnoses MIKE (acute kidney injury) N17.9 Chronic kidney disease (CKD) stage G3b/A1, moderately decreased glomerular filtration rate (GFR) between 30-44 mL/min/1.73 square meter and albuminuria creatinine ratio less than 30 mg/g N18.32 AAA (abdominal aortic aneurysm) I71.4 Hypertension, essential I10
--- NOTE | 2022-09-16 10:24 | Hospitalist Consultation ---
Date of Consultation September 16, 2022 Assessment & Plan (1) S/P endovascular aneurysm repair: Postoperative hypotension w/ tachycardia With some penile hematoma, superficial scrotal swelling without dependent scrotal edema/hematoma Femoral sites with wound VAC in place, no surrounding swelling/hematoma PT pulses intact to Doppler at bedside exam bilaterally. Patient denies limb pain. Ankle dorsiflexion/plantarflexion 5/5 bilaterally and sensation of soft touch intact bilaterally Hemoglobin is slowly downtrending currently 10.7 from preop of 13.5 CT pending for evaluation of retroperitoneal hematoma CTA/MRA deferred. CT contrast limited by MIKE Initially hypotensive to 80s/60s, improved with 250 cc bolus Lactate pending, hemoglobin every 6 hours pending - EKG: sinus @ 96, QTc 480, similar morphology to 08/2022. No territorial ST segment changes. -Patient readmitted to ICU for monitoring/care Hold lisinopril/amlodipine s/p EVAR with L to R fem fem bipass 09/14/2022 - Preop CTA: 1. Infrarenal aortic aneurysm measuring 50 mm, increased from prior exam where it measured 45 mm. There is significant stenosis in the origin of the left iliac arteries. The right common iliac artery is not opacified, although there is distal reconstitution of the internal and external iliac arteries. The origin of the great vessels of the abdomen are patent. 2. 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 3. Diverticulosis without diverticulitis. 4. 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 - CT pending as noted - PT pulses intact to doppler bilat -Management per primary vascular team MIKE Patient with baseline creatinine 1.55 acutely elevated postoperatively and uptrending to 2.39, creatinine clearance 37 Hypertension management as above, CT pending as ntoed Nephrology consulted, suspect YOSHI No NSAIDs, avoid nephrotoxins, trend BMP Hold lisinopril Mildly reduced EF Patient denies history of heart failure, endorses intermittent orthopnea which she has attributed to RADHA but does not use NIV Denies history of leg swelling Cautious fluids, x-ray/BMP pending Type II DM Hold home metformin ICU hyperglycemia protocol Hyperlipidemia Continued on statin RADHA - w/ ?confusion overnight, cognitively clear at morning assessment - CPAP qHS (2) Hypotension: (3) MIKE (acute kidney injury): (4) AAA (abdominal aortic aneurysm): (5) Dyslipidemia: (6) Hypertension, essential: (7) Type 2 diabetes mellitus: History of Present Illness Attending Physician: Khoi Castillo MD History of Present Illness Dereck seen at the bedside this morning. He reports he had some lightheadedness/dizziness this morning and was told that he had low blood pressure. He reports normally his blood pressure is okay, denies a history of heart failure and was not aware that his EF was around 45% at the last echo. He reports that he does get a little short of breath when laying flat and that he has been told that he has sleep apnea in the past, does not use a CPAP at home. He denies chest pain or shortness of breath at time of assessment. He does endorse some left shoulder/lower arm pain with movement which was present before surgery and seems a little bit worse after and is worsened by shoulder movement, but overall is much better than yesterday. Is not associated with shortness of breath. He has not noticed any bleeding to his knowledge. He does not feel like he was going to pass out. He has not had any nausea/vomiting but notes that he has And is not very hungry. Has not been drinking much. No BM. Denies medication allergies Denies alcohol use Endorses ongoing 0.5 pack/day tobacco use Denies medication allergies Allergies Allergy/AdvReac Type Severity Reaction Status Date / Time No Known Allergies Allergy Verified 09/14/22 06:24 Home Medications Medication Instructions Recorded Confirmed Type cilostazol 100 mg tablet 100 mg PO BID 03/03/21 09/14/22 History lisinopril 20 mg tablet 20 mg PO QAM 03/03/21 09/14/22 History meloxicam 15 mg tablet 15 mg PO HS 03/03/21 09/14/22 History metformin 500 mg tablet 500 mg PO BID 03/03/21 09/14/22 History simvastatin 40 mg tablet 40 mg PO QAM 03/03/21 09/14/22 History terazosin 2 mg capsule 2 mg PO QAM 03/03/21 09/14/22 History amlodipine 5 mg tablet 5 mg PO QDL 07/07/22 09/14/22 History aspirin 81 mg tablet,delayed 81 mg PO QAM 08/09/22 09/14/22 History release Patient History Medical History AAA (abdominal aortic aneurysm) MIKE (acute kidney injury) CKD (chronic kidney disease) DM type 2 (diabetes mellitus, type 2) History of kidney stones Hypercholesteremia Hypertension Hypoxia RADHA (obstructive sleep apnea) Post-op pain PVD (peripheral vascular disease) Sleep apnea unable to tolerate CPAP Surgical History History of cardiac catheterization 1994 > no stents History of cataract surgery History of colonoscopy History of tonsillectomy Hx of inguinal herniorrhaphy S/P aortogram S/P endovascular aneurysm repair Family History Other No family history of adverse response to anesthesia Social History Smoking Status: Heavy tobacco smoker Cigarettes Per Day: 30; Second Hand Exposure: Yes; Do You Dip or Chew Tobacco: No; Tobacco Cessation Education Requested by Patient: No Hx Alcohol Use: No Hx Substance Use: No Preferred Language: Citizen Of [place] Communication Ability: Effective Collar Runner Required: No Beliefs That Will Affect Care: None Current Living Situation: Spouse Other Information That Helps Us Care for You: No Feels Safe at Home: Yes Safety Concerns: Feels Safe At This Time Assistive Devices: Cane and Walker Review of Systems Review of Systems: All systems reviewed & are unremarkable except as noted in Subjective Physical Exam Physical Exam: General: A&Ox3. NAD. Cooperative. HEENT: Atraumatic, normocephalic. Vision/hearing intact Pulm: CTAB A&P. -wheezes, -rales, -rhonchi. Symmetrical chest rise. No increase in work of breathing. No respiratory distress. Cardiac: Mildly tachycardic. Radial pulses intact and symmetrical. No JVD. No pedal edema Abdominal: Softly distended, minimally tender without rebound/guarding. : Mild thickening and hematoma of the penile shaft and anterior scrotum without dependent swelling/hematoma. Inferior/posterior scrotum without significant hematoma/swelling Extremities/skin: Femoral wound VAC in place bilaterally, no surrounding hematoma/swelling. PT pulse intact to Doppler bedside. Sensation soft touch intact in hands and feet bilaterally without asymmetry. Ankle dorsiflexion/plantarflexion 5/5 Results & Data Results & Data ([facility]) Vital Signs (Past 12 Hours) Vital Signs Temp Pulse Resp BP Pulse Ox O2 Del Method O2 Flow Rate 09/16/22 08:00 94 H 15 95 09/16/22 08:00 107/64 09/16/22 07:00 96 H 16 88 L 09/16/22 07:00 106/72 09/16/22 06:00 95 H 14 92 09/16/22 06:00 119/76 09/16/22 05:00 100 H 16 88 L 09/16/22 05:00 111/86 09/16/22 08:00 101 H 09/16/22 07:00 37.3 C 09/16/22 07:31 Room Air 09/16/22 04:50 101 H 14 89 L 09/16/22 04:40 97 H 15 90 09/16/22 04:30 99 H 18 95 09/16/22 04:20 101 H 14 96 09/16/22 04:10 101 H 15 94 09/16/22 04:00 100 H 18 96 Nasal Cannula 2 09/16/22 04:00 120/69 09/16/22 03:50 100 H 15 95 09/16/22 03:40 102 H 15 09/16/22 03:30 103 H 16 94 09/16/22 03:20 99 H 15 94 09/16/22 03:10 101 H 14 09/16/22 03:00 98 H 14 95 09/16/22 03:00 147/106 H 09/16/22 02:50 101 H 14 09/16/22 02:40 101 H 16 89 L 09/16/22 02:30 101 H 15 94 09/16/22 02:20 104 H 15 09/16/22 02:10 101 H 16 09/16/22 02:00 102 H 17 92 09/16/22 02:00 130/103 H 09/16/22 01:50 102 H 15 09/16/22 01:40 100 H 14 93 09/16/22 01:30 105 H 16 92 09/16/22 01:20 105 H 14 92 09/16/22 01:10 110 H 20 96 09/16/22 01:00 106 H 16 94 09/16/22 01:00 141/97 H 09/16/22 00:50 106 H 15 94 09/16/22 00:40 102 H 14 91 09/16/22 00:30 105 H 16 95 09/16/22 00:20 104 H 20 93 09/16/22 00:10 105 H 14 09/16/22 00:00 102 H 15 94 Nasal Cannula 2 09/16/22 00:00 143/94 H 09/15/22 23:50 103 H 15 09/16/22 03:45 37 C 09/15/22 23:40 103 H 16 95 09/15/22 23:30 103 H 18 95 09/15/22 23:20 100 H 18 94 09/15/22 23:10 111 H 16 94 09/15/22 23:00 103 H 17 Nasal Cannula 2 09/15/22 23:00 123/88 09/15/22 22:50 106 H 18 78 L 09/15/22 22:40 104 H 18 93 09/15/22 22:30 101 H 17 92 09/15/22 22:20 102 H 19 09/15/22 23:49 105 H 09/15/22 22:57 37.1 C PG Care Time/CCT Total # of Minutes Spent Total Time Spent with Patient: Total time spent is greater than 50% in coordination of care (as documented) at patient's floor/unit and/or counseling patient: Coding Level of Care Code 44656 Inpt Consult Level 4 Diagnoses S/P endovascular aneurysm repair Z98.890; Z86.79 Hypotension I95.9 MIKE (acute kidney injury) N17.9 AAA (abdominal aortic aneurysm) I71.4 Dyslipidemia E78.5 Hypertension, essential I10 Type 2 diabetes mellitus E11.9
--- NOTE | 2022-09-16 10:28 | Surgery Progress Note ---
Date of Service September 16, 2022 Assessment & Plan (1) S/P endovascular aneurysm repair: Plan: Pt POD #2 after EVAR with L to R fem fem BPG. Surgical incisions looking well and pt with good peripheral perfusion. Pt with general malaise, MIKE, mild confusion, and hypotension. Electrolytes stable. Required oxygen at 2LNC overnight. Discussed with Dr Castillo. Transfer to ICU, perform EKG, and consult hospitalist for eval. (2) MIKE (acute kidney injury): Plan: Pt with Cr of 2.39, increased from yesterday 2.1, despite gentle hydration. Electrolytes stable. Overall fluid balance increased 5 L, and pt weight increased 4Kg since admission. Consult nephrology. Continue to monitor. Admission and Anticipated Discharge Date Admission Date: September 14, 2022 Subjective 71 yo m POD #2 after EVAR with L to R fem fem BPG, seen in f/u today. Pt admits pain in BL groins and across low abd with movement. Denies pain in feet. Admits poor appetite, but denies nausea/vomiting. Admits fatigue. States felt dizzy when OOB to chair today. Was hypotensive per RN (70's/50's), which persisted (80's/60's) after being returned to bed. Per staff, pt is mildly confused. Cr increased to 2.39 today. Review of Systems Review of Systems: All systems reviewed & are unremarkable except as noted in HPI & below Physical Exam Constitutional: WD/WN, vitals as above not in distress Respiratory: normal respiratory effort; no respiratory distress Auscultation: lungs clear to auscultation bilaterally and + diminished lung sounds Cardiovascular: Rate/Rhythm: regular rate and regular rhythm Vessels: femoral pulses present (BL prevena dressings in place), posterior tibial pulses present (+1 BLE), dorsalis pedis pulses present (+1 BLE) and radial pulses present; + abnormal peripheral pulses Extremities: normal capillary refill Gastrointestinal (Abdomen): Inspection/Auscultation: abdomen normal to inspection and normal bowel sounds Percussion/Palpation: abdomen soft; abdomen nontender Musculoskeletal: no cyanosis or clubbing, extremities motor strength 5/5 Skin: no rashes, warm and dry + ecchymosis (Mild ecchymosis noted over graft tunnel/pelvis) and + incision (BL groins prevena in place. ) Neurologic: moves all extremities and awake; no focal motor deficits and not confused Psychiatric: A+Ox3, euthymic affect Results & Data ([facility]) Vital Signs (Past 12 Hours) Vital Signs Temp Pulse Resp BP Pulse Ox O2 Del Method O2 Flow Rate 09/16/22 08:00 94 H 15 95 09/16/22 08:00 107/64 09/16/22 07:00 96 H 16 88 L 09/16/22 07:00 106/72 09/16/22 06:00 95 H 14 92 09/16/22 06:00 119/76 09/16/22 05:00 100 H 16 88 L 09/16/22 05:00 111/86 09/16/22 08:00 101 H 09/16/22 07:00 37.3 C 09/16/22 07:31 Room Air 09/16/22 04:50 101 H 14 89 L 09/16/22 04:40 97 H 15 90 09/16/22 04:30 99 H 18 95 09/16/22 04:20 101 H 14 96 09/16/22 04:10 101 H 15 94 09/16/22 04:00 100 H 18 96 Nasal Cannula 2 09/16/22 04:00 120/69 09/16/22 03:50 100 H 15 95 09/16/22 03:40 102 H 15 09/16/22 03:30 103 H 16 94 09/16/22 03:20 99 H 15 94 09/16/22 03:10 101 H 14 09/16/22 03:00 98 H 14 95 09/16/22 03:00 147/106 H 09/16/22 02:50 101 H 14 09/16/22 02:40 101 H 16 89 L 09/16/22 02:30 101 H 15 94 09/16/22 02:20 104 H 15 09/16/22 02:10 101 H 16 09/16/22 02:00 102 H 17 92 09/16/22 02:00 130/103 H 09/16/22 01:50 102 H 15 09/16/22 01:40 100 H 14 93 09/16/22 01:30 105 H 16 92 09/16/22 01:20 105 H 14 92 09/16/22 01:10 110 H 20 96 09/16/22 01:00 106 H 16 94 09/16/22 01:00 141/97 H 09/16/22 00:50 106 H 15 94 09/16/22 00:40 102 H 14 91 09/16/22 00:30 105 H 16 95 09/16/22 00:20 104 H 20 93 09/16/22 00:10 105 H 14 09/16/22 00:00 102 H 15 94 Nasal Cannula 2 09/16/22 00:00 143/94 H 09/15/22 23:50 103 H 15 09/16/22 03:45 37 C 09/15/22 23:40 103 H 16 95 09/15/22 23:30 103 H 18 95 09/15/22 23:20 100 H 18 94 09/15/22 23:10 111 H 16 94 09/15/22 23:00 103 H 17 Nasal Cannula 2 09/15/22 23:00 123/88 09/15/22 22:50 106 H 18 78 L 09/15/22 22:40 104 H 18 93 09/15/22 22:30 101 H 17 92 09/15/22 22:20 102 H 19 09/15/22 23:49 105 H 09/15/22 22:57 37.1 C
--- NOTE | 2022-09-16 10:37 | Pharmacy Report ---
Pharmacy Glycemic Sign Off Nt - Date of Service September 16, 2022 - Assessment & Plan ASSESSMENT: * Pharmacy was consulted by Dr. Castillo on 09/14/22 for glycemic control and to write orders per [facility] inpatient glycemic control protocol. * Major changes made by pharmacy to antidiabetic regimen include: * Adding one time basal dose to cover steroids received in OR * Adding Novolog ACHS coverage * Patient required a one time dose of basal insulin to cover for steroid-induced hyperglycemia. Steroids are now wearing off and patient required only 2 units of bolus insulin total yesterday. * BSGs ranging 121-174 mg/dl * Do not anticipate further changes in patient status that would quickly deteriorate glycemic control (i.e. patient to be NPO for upcoming procedure, steroids tapering, starting tube feedings, etc). * Please see recommendations for outpatient antidiabetic regimen below. PLAN FOR INPATIENT GLYCEMIC CONTROL: No changes needed to current regimen. * Continue NovoLog per scale ACHS/Q6hrs while NPO * Goal range = 110-140 mg/dl * CF = 20 mg/dl/unit * CR = 1 unit for ever 6 g CHO consumed DISCHARGE RECOMMENDATIONS: * Assuming patient's renal fxn starts to improve prior to discharge, recommend resuming Metformin 500 mg PO BIDM upon discharge. * Pharmacy is signing off of glycemic consult and will no longer be making adjustments to inpatient regimen. Please feel free to re-consult if needed. Thank you.
--- NOTE | 2022-09-16 10:52 | Critical Care Progress Note ---
Date of Service September 16, 2022 Assessment & Plan (1) AAA (abdominal aortic aneurysm): Plan: Postop management per vascular surgery. (2) Post-op pain: Plan: We will obtain a CT abdomen and pelvis to evaluate for signs of retroperitoneal bleed, ileus or other pathology. Discontinue morphine in the setting of MIKE. Will use Dilaudid as needed for severe pain. (3) MIKE (acute kidney injury): Plan: CT abdomen and pelvis as above to evaluate for any obstructive uropathy. Likely an element of ischemic ATN. Nephrology consult was placed by vascular surgery. We will give a bolus of 250 Normosol now. He does have a history of CHF and would like to be judicious with fluid use. Discontinue meloxicam. Hold lisinopril. Monitor urine output closely. Repeat BMP. (4) Hypotension: Plan: Hold antihypertensives. Fluid bolus as above. No role for pressors at this time systolic blood pressures in the 120s. Obtain CBC to evaluate her hemorrhagic component. Obtain lactic acid level. (5) RADHA (obstructive sleep apnea): Plan: Confusion overnight may have been related to hypercapnia. Obtain baseline ABG now. BiPAP ordered to be used when sleeping. (6) Hypoxia: Plan: Likely related to postop hypoventilation and atelectasis. Will obtain chest x- ray to evaluate for any effusion or other infiltrate. Will order incentive spirometry. Plan Hemodynamic stable. Patient with MIKE. Recommend holding lisinopril. Rest of antihypertensives per primary team. Stable for downgrade out of ICU. Admission and Anticipated Discharge Date Admission Date: September 14, 2022 Subjective Patient was hypotensive overnight and this morning. He had orthostatic hypotension as well when sitting up with systolics in the 70s. He was apparently confused overnight at times. He is alert and oriented at this time. He has some mild pain around the incision sites from the bypass. He has some mild abdominal tenderness. Chaudhary catheter in place and draining dark urine. Currently receiving a fluid bolus. Systolic blood pressures improved to the 120s. Review of Systems Review of Systems: All systems reviewed & are unremarkable except as noted in HPI & below Physical Exam Physical Exam: Constitutional: Patient appears to be of their stated age. Patient is in no apparent distress. Patient is well-developed. Eyes: Pupils are equal round and reactive to light. Conjunctivae are normal. Anicteric sclera. Ears nose, mouth and throat: Mallampati class 2. Normal posterior oropharynx. Uvula is midline. Neck: Trachea is midline. Visual inspection is normal. Respiratory: Clear to auscultation bilaterally. No use of accessory muscles. No significant clubbing noted. Cardiovascular: Regular rate and rhythm. No murmurs. No edema. Distal pulses intact Gastrointestinal: Normal bowel sounds. Mildly tender to palpation. Musculoskeletal: No cyanosis. Patient is able to move all extremities. Strength is 5 out of 5 in the upper and lower extremities. Skin: No rashes, warm dry and intact. Neurologic: No obvious focal neurological deficits seen. Psychiatric: Alert and oriented x3 with a euthymic affect. Results & Data Results & Data ([facility]) Vital Signs (Past 12 Hours) Vital Signs Temp Pulse Resp BP Pulse Ox O2 Del Method O2 Flow Rate 09/16/22 10:30 98 H 17 96 09/16/22 10:28 89/67 L 09/16/22 10:28 99 H 16 97 09/16/22 10:15 98 H 12 93 09/16/22 10:15 94/65 L 09/16/22 10:00 100 H 14 97 09/16/22 10:00 98/67 L 09/16/22 09:48 103/76 09/16/22 09:48 94 H 12 97 09/16/22 09:45 95 H 24 96 09/16/22 09:42 88/72 L 09/16/22 09:42 94 H 12 96 09/16/22 09:37 97 H 14 95 09/16/22 09:37 82/64 L 09/16/22 09:33 85/64 L 09/16/22 09:33 99 H 14 93 09/16/22 09:32 72/57 L 09/16/22 09:32 102 H 15 91 09/16/22 09:30 105 H 19 09/16/22 09:29 103 H 12 09/16/22 09:29 75/49 L 09/16/22 09:15 102 H 16 09/16/22 09:03 106/60 09/16/22 09:03 93 H 17 93 09/16/22 09:00 95 H 16 92 09/16/22 08:45 96 H 16 95 09/16/22 08:30 101 H 20 92 09/16/22 08:15 91 H 16 96 09/16/22 08:00 94 H 15 95 09/16/22 08:00 107/64 09/16/22 07:00 96 H 16 88 L 09/16/22 07:00 106/72 09/16/22 06:00 95 H 14 92 09/16/22 06:00 119/76 09/16/22 05:00 100 H 16 88 L 09/16/22 05:00 111/86 09/16/22 08:00 101 H 09/16/22 07:00 37.3 C 09/16/22 07:31 Room Air 09/16/22 04:50 101 H 14 89 L 09/16/22 04:40 97 H 15 90 09/16/22 04:30 99 H 18 95 09/16/22 04:20 101 H 14 96 09/16/22 04:10 101 H 15 94 09/16/22 04:00 100 H 18 96 Nasal Cannula 2 09/16/22 04:00 120/69 09/16/22 03:50 100 H 15 95 09/16/22 03:40 102 H 15 09/16/22 03:30 103 H 16 94 09/16/22 03:20 99 H 15 94 09/16/22 03:10 101 H 14 09/16/22 03:00 98 H 14 95 09/16/22 03:00 147/106 H 09/16/22 02:50 101 H 14 09/16/22 02:40 101 H 16 89 L 09/16/22 02:30 101 H 15 94 09/16/22 02:20 104 H 15 09/16/22 02:10 101 H 16 09/16/22 02:00 102 H 17 92 09/16/22 02:00 130/103 H 09/16/22 01:50 102 H 15 09/16/22 01:40 100 H 14 93 09/16/22 01:30 105 H 16 92 09/16/22 01:20 105 H 14 92 09/16/22 01:10 110 H 20 96 09/16/22 01:00 106 H 16 94 09/16/22 01:00 141/97 H 09/16/22 00:50 106 H 15 94 09/16/22 00:40 102 H 14 91 09/16/22 00:30 105 H 16 95 09/16/22 00:20 104 H 20 93 09/16/22 00:10 105 H 14 09/16/22 00:00 102 H 15 94 Nasal Cannula 2 09/16/22 00:00 143/94 H 09/15/22 23:50 103 H 15 09/16/22 03:45 37 C 09/15/22 23:40 103 H 16 95 09/15/22 23:30 103 H 18 95 09/15/22 23:20 100 H 18 94 09/15/22 23:10 111 H 16 94 09/15/22 23:00 103 H 17 Nasal Cannula 2 09/15/22 23:00 123/88 09/15/22 23:49 105 H 09/15/22 22:57 37.1 C Coding Level of Care Code 26521 Subseq Hosp Care Lvl 3 Diagnoses AAA (abdominal aortic aneurysm) I71.4 Post-op pain G89.18 MIKE (acute kidney injury) N17.9 Hypotension I95.9 RADHA (obstructive sleep apnea) G47.33 Hypoxia R09.02
[2022-09-16 11:01] LABS: Basophils # (auto) 0.02 K/uL (0-0.2); Basophils % (auto) 0.2 %; Eosinophils # (auto) 0.02 K/uL (0-0.50); Eosinophils % (auto) 0.2 %; Hematocrit (blood only) 32.5 % (40.1-51.0); Hemoglobin 10.7 g/dl (14.0-18.0); Immature Granulocytes # (auto) 0.05 K/uL (0.00-0.02); Immature Granulocytes % (auto) 0.4 %; Lymphocytes # (auto) 0.83 K/uL (1.2-3.4); Mean Corpuscular Hemoglobin 27.1 pg (25.0-34.0); Mean Corpuscular Hgb Conc 32.9 g/dL (32.0-36.0); Mean Corpuscular Volume 82.3 fL (80.0-100.0); Mean Platelet Volume 9.9 fL (9.4-12.4); Monocytes # (auto) 1.09 K/uL (0.24-0.82); Monocytes % (auto) 9.2 %; Platelet Count 105 K/uL (130-400); RDW Coefficient of Variation 14.6 % (11.5-14.5); RDW Standard Deviation 44.2 fL (36.4-46.3); Red Blood Count 3.95 M/uL (4.63-6.08); White Blood Count 11.91 K/ul (4.8-10.8)
[2022-09-16] MEDS ORDERED: HYDROmorphone INJ 0.5 MG/0.5 ML SYR IV PRN (11:11)
--- NOTE | 2022-09-16 11:17 | XRay Report ---
XR chest 1V portable CLINICAL HISTORY: hypoxia TECHNIQUE: Single frontal radiograph of the chest was obtained. Comparison: Comparison is made to chest radiograph 08/17/2022 FINDINGS: No lines and tubes are seen. The cardiomediastinal silhouette is normal. Lungs are underinflated but clear. No evidence of pleural effusion or pneumothorax. IMPRESSION: No acute abnormalities and in particular no evidence of pneumonia. ACT 112: Negative or not required by law. Electronically signed by: Ananth Alarcon M.D. 09/16/2022 11:15 AM
[2022-09-16 11:43] LABS: Albumin Globulin Ratio 1.7 (0.9-2); Albumin Level 3.2 gm/dl (3.4-5.0); Bilirubin,Total 0.6 mg/dl (0.2-1.0); Calcium 7.4 mg/dl (8.5-10.1); Creatinine Clr Calc Pharmacy 33.7 ml/min; Est GFR (African American) 27.4 ml/min; Est GFR (Non-African American) 23.6 ml/min; Globulin 1.9 gm/dl (2.5-4.0); Potassium 4.3 mmol/L (3.5-5.1); Total Protein 5.1 gm/dl (6.0-8.3)
--- NOTE | 2022-09-16 11:53 | CT Scan Report ---
CT abd pelvis wo con CLINICAL HISTORY: renal failure, abdominal pain TECHNIQUE: Helical axial images of the abdomen and pelvis were obtained. Automated dose lowering tech niques and/or adjustment according to patient size were utilized for this exam. This exam was perfor med without intravenous contrast. CT DOSE: 1603.31 mGy.cm COMPARISON: Comparison is made to CTA abdomen and pelvis 07/07/2022 FINDINGS: Lower chest: No acute abnormality. Liver: Unremarkable. No focal lesions are seen. Gallbladder and biliary tree: Vicarious excretion of contrast is seen. No intra- or extrahepatic bili chioma ductal dilation. Pancreas: Unremarkable, no focal lesions. Spleen: Unremarkable. Adrenals: Thickening of the bilateral adrenal glands noted. Kidneys and ureters: Inhomogeneous enhancement of the kidneys. Bladder: Chaudhary catheter is seen. Reproductive organs: Unremarkable. Bowel: Diverticulosis is seen without evidence of diverticulitis. The appendix is normal. Lymph nodes Retroperitoneal: Unremarkable. Pelvic: Unremarkable. Mesenteric: Unremarkable. Peritoneum: Normal. Vessels: Infrarenal aortic aneurysm measures 50 mm in diameter. An aortic stent is seen. The right il iac component appears to terminate above the origin of the iliac artery. Interval placement of a femo ral-femoral bypass. Abdominal wall: Unremarkable. Bones: Degenerative changes in the visualized spine. IMPRESSION: 1. Postsurgical changes of femorofemoral bypass placement. 2. Inhomogeneous contrast retention in the bilateral kidneys may reflect acute renal failure, clinic al correlation is recommended. No evidence of hydronephrosis. 3. Stable appearance of abdominal aortic aneurysm and there is interval placement of an aortobifemor al stent. The right femoral component terminates before the origin of the right femoral artery. ACT 112: Negative or not required by law. Electronically signed by: Ananth Alarcon M.D. 09/16/2022 11:52 AM
[2022-09-16 12:00] LABS: iSTAT Allen Test Pass; iSTAT Art Bld Gas pCO2 Correct 36 mmHg (35-46); iSTAT Art Bld Gas pH Corrected 7.411 (7.35-7.45); iSTAT Arterial Blood Gas HCO3 23 meg/L (19-24); iSTAT Arterial Blood Gas pCO2 36 mmHg (35-46); iSTAT Arterial Blood Gas pH 7.41 (7.35-7.45); iSTAT Arterial Blood Gas pO2 71 mmHg (80-95); iSTAT Arterial Blood Gas pO2 C 71; iSTAT Carbon Dioxide 24 mmol/L (24-31); iSTAT Hematocrit 31 % (42-52); iSTAT Hemoglobin 10.5 g/dl (14.0-18.0); iSTAT Potassium 4.2 mmol/L (3.3-5.0); iSTAT Site R Radial; iSTAT Sodium 136 mmol/L (135-144)
[2022-09-16 16:23] LABS: Appearance Urine Cloudy (Clear); Bacteria Urine Automated Negative (Negative); Bilirubin Urine Negative (Negative); Blood Urine 3+ (Negative); Color Urine Yellow; Glucose Urine UA Negative (Negative); Ketones Urine Negative (Negative); Leukocyte Esterase Urine Trace (Negative); Nitrite Urine Negative (Negative); Protein Urine 1+ (Negative); RBC Urine Automated >30 /hpf (0-4); Specific Gravity Urine 1.017 (1.000-1.030); Urobilinogen Urine Negative (Negative)
--- NOTE | 2022-09-16 16:49 | Electrocardiogram Report ---
Test Reason : Blood Pressure : / mmHG Vent. Rate : 096 BPM Atrial Rate : 096 BPM P-R Int : 180 ms QRS Dur : 120 ms QT Int : 380 ms P-R-T Axes : 059 -48 086 degrees QTc Int : 480 ms Sinus rhythm with occasional Premature ventricular complexes Left axis deviation Left ventricular hypertrophy with QRS widening Abnormal ECG When compared with ECG of 17-AUG-2022 13:51, Premature ventricular complexes are now Present Vent. rate has increased BY 36 BPM Confirmed by Jamal Gonzalez ([id number] on 09/16/2022 4:49:30 PM Referred By: Khoi Castillo Confirmed By:Jamal Gonzalez
[2022-09-17 04:12] LABS: Basophils # (auto) 0.02 K/uL (0-0.2); Basophils % (auto) 0.2 %; Eosinophils # (auto) 0.07 K/uL (0-0.50); Eosinophils % (auto) 0.7 %; Hemoglobin 10.3 g/dl (14.0-18.0); Immature Granulocytes # (auto) 0.07 K/uL (0.00-0.02); Immature Granulocytes % (auto) 0.7 %; Lymphocytes # (auto) 0.99 K/uL (1.2-3.4); Lymphocytes % (auto) 9.9 %; Mean Corpuscular Hemoglobin 27.1 pg (25.0-34.0); Mean Corpuscular Hgb Conc 33.2 g/dL (32.0-36.0); Mean Corpuscular Volume 81.6 fL (80.0-100.0); Monocytes # (auto) 0.89 K/uL (0.24-0.82); Monocytes % (auto) 8.9 %; Neutrophils # (auto) 7.95 K/uL (1.4-6.5); Neutrophils % (auto) 79.6 %; Platelet Count 109 K/uL (130-400); RDW Coefficient of Variation 14.7 % (11.5-14.5); RDW Standard Deviation 43.7 fL (36.4-46.3); White Blood Count 9.99 K/ul (4.8-10.8)
[2022-09-17 04:34] LABS: BUN Creatinine Ratio 16.7 (10-20); Calcium 7.6 mg/dl (8.5-10.1); Creatinine Clr Calc Pharmacy 33.8 ml/min; Est GFR (African American) 27.5 ml/min; Est GFR (Non-African American) 23.7 ml/min
[2022-09-17] MEDS ORDERED: STAT IV STA (08:17)
[2022-09-17] MEDS ORDERED: CALCIUM GLUCONATE 10% 2,000 MG in DEXTROSE 5% 50 ML IV ONE (08:30)
[2022-09-17] MEDS: ASPIRIN 81 MG ECTAB PO SCH (08:34)
[2022-09-17] MEDS: cilostazoL 100 MG TAB PO SCH ×2 (08:34→20:54)
[2022-09-17] MEDS: SIMVASTATIN 40 MG TAB PO SCH (08:34)
[2022-09-17] MEDS: SODIUM CHLORIDE 0.9% 1000ML 1,000 ML IV SCH ×2 (08:35→20:54)
[2022-09-17] MEDS: INSULIN ASPART PER UNIT SC SCH ×4 (08:38→20:54)
--- NOTE | 2022-09-17 09:22 | Critical Care Progress Note ---
Date of Service September 17, 2022 Assessment & Plan (1) AAA (abdominal aortic aneurysm): Plan: Postop management per vascular surgery. Antiplatelets per vascular surgery team. (2) Post-op pain: Plan: CT abdomen with expected postsurgical changes. No hydronephrosis. No evidence of ileus or acute findings otherwise. Pain better controlled today. Continue as needed Dilaudid and oxycodone. (3) MIKE (acute kidney injury): Plan: Hold nephrotoxic agents. Creatinine appears to have plateaued. Continue oral fluids and intake. Replacing calcium. (4) Hypotension: Plan: Continue to hold antihypertensives. Lactate levels were unremarkable yesterday. Hypotension appears to have resolved. (5) RADHA (obstructive sleep apnea): Plan: No evidence of hypercapnia on ABG. Patient does have a history of RADHA and is noncompliant with therapy. He did tolerate CPAP yesterday. Recommend continuing CPAP while inpatient and following up with sleep medicine as an outpatient. (6) Hypoxia: Plan: Resolving. Continue IS and CPAP at night. At risk for atelectasis and pneumonia given obesity and abdominal pain. Plan Stable for downgrade out of the ICU. Admission and Anticipated Discharge Date Admission Date: September 14, 2022 Subjective No significant events overnight. Tolerated CPAP. No hypotensive episodes. Currently sitting up in a chair and denies any significant complaint. He does have some early satiety. Review of Systems Review of Systems: All systems reviewed & are unremarkable except as noted in HPI & below Physical Exam Physical Exam: Constitutional: Patient appears to be of their stated age. Patient is in no apparent distress. Patient is well-developed. Eyes: Pupils are equal round and reactive to light. Conjunctivae are normal. Anicteric sclera. Ears nose, mouth and throat: Mallampati class 2. Normal posterior oropharynx. Uvula is midline. Neck: Trachea is midline. Visual inspection is normal. Respiratory: Clear to auscultation bilaterally. No use of accessory muscles. No significant clubbing noted. Cardiovascular: Regular rate and rhythm. No murmurs. No edema. Distal pulses intact Gastrointestinal: Normal bowel sounds. Mildly tender to palpation. Musculoskeletal: No cyanosis. Patient is able to move all extremities. Strength is 5 out of 5 in the upper and lower extremities. Skin: No rashes, warm dry and intact. Neurologic: No obvious focal neurological deficits seen. Psychiatric: Alert and oriented x3 with a euthymic affect. Results & Data Results & Data ([facility]) Vital Signs (Past 12 Hours) Vital Signs Temp Pulse Resp BP Pulse Ox O2 Del Method O2 Flow Rate 09/17/22 05:40 95 H 18 95 09/17/22 05:30 94 H 14 96 09/17/22 05:20 95 H 16 95 09/17/22 05:10 95 H 15 95 09/17/22 05:00 100 H 17 94 CPAP 09/17/22 05:00 120/78 09/17/22 04:50 96 H 16 95 09/17/22 04:40 96 H 15 95 09/17/22 04:30 96 H 18 95 09/17/22 04:20 96 H 22 96 09/17/22 04:10 97 H 19 96 09/17/22 04:00 97 H 13 94 CPAP 09/17/22 04:00 117/78 09/17/22 03:50 96 H 15 97 09/17/22 03:40 97 H 15 96 09/17/22 03:30 94 H 15 97 09/17/22 03:20 93 H 17 98 09/17/22 03:10 94 H 16 97 09/17/22 03:00 87 18 97 CPAP 09/17/22 03:00 125/73 09/17/22 02:50 96 H 21 94 09/17/22 02:40 86 17 97 09/17/22 02:30 98 H 17 97 09/17/22 02:20 89 25 H 95 CPAP 09/17/22 02:10 76 21 96 09/17/22 02:00 92 H 15 09/17/22 02:00 115/73 09/17/22 01:50 90 16 98 CPAP 09/17/22 01:40 92 H 15 98 09/17/22 01:30 88 19 97 09/17/22 01:20 95 H 13 96 09/17/22 01:10 93 H 15 99 09/17/22 01:00 98 H 17 96 09/17/22 01:00 126/67 09/17/22 00:50 95 H 14 97 09/17/22 00:40 94 H 12 98 CPAP 09/17/22 04:00 37.2 C 09/17/22 02:58 89 23 97 09/17/22 00:30 91 H 18 99 CPAP 09/17/22 00:20 93 H 26 H 96 09/17/22 00:10 92 H 19 98 09/17/22 00:00 94 H 14 94 CPAP 09/17/22 00:00 107/88 09/16/22 23:50 99 H 14 98 09/16/22 23:40 99 H 16 97 09/16/22 23:30 100 H 15 96 CPAP 09/16/22 23:20 95 H 16 98 CPAP 09/16/22 23:10 97 H 18 97 CPAP 09/16/22 23:00 96 H 15 95 CPAP 09/16/22 23:00 117/78 09/17/22 00:00 98 H 09/16/22 22:50 99 H 16 97 CPAP 09/16/22 22:40 100 H 20 91 Nasal Cannula 2 09/16/22 22:30 101 H 18 90 09/16/22 22:20 99 H 17 93 09/16/22 22:10 102 H 18 93 09/16/22 22:00 103 H 16 09/16/22 22:00 117/73 09/16/22 21:50 101 H 15 96 09/16/22 21:40 100 H 18 93 09/16/22 21:30 104 H 16 96 09/16/22 21:20 99 H 18 94 09/16/22 22:56 37.6 C H FiO2 09/17/22 05:40 09/17/22 05:30 09/17/22 05:20 09/17/22 05:10 09/17/22 05:00 09/17/22 05:00 09/17/22 04:50 09/17/22 04:40 09/17/22 04:30 09/17/22 04:20 09/17/22 04:10 09/17/22 04:00 09/17/22 04:00 09/17/22 03:50 09/17/22 03:40 09/17/22 03:30 09/17/22 03:20 09/17/22 03:10 09/17/22 03:00 09/17/22 03:00 09/17/22 02:50 09/17/22 02:40 09/17/22 02:30 09/17/22 02:20 09/17/22 02:10 09/17/22 02:00 09/17/22 02:00 09/17/22 01:50 09/17/22 01:40 09/17/22 01:30 09/17/22 01:20 09/17/22 01:10 09/17/22 01:00 09/17/22 01:00 09/17/22 00:50 09/17/22 00:40 09/17/22 04:00 09/17/22 02:58 30 09/17/22 00:30 09/17/22 00:20 09/17/22 00:10 09/17/22 00:00 09/17/22 00:00 09/16/22 23:50 09/16/22 23:40 09/16/22 23:30 09/16/22 23:20 09/16/22 23:10 09/16/22 23:00 09/16/22 23:00 09/17/22 00:00 09/16/22 22:50 09/16/22 22:40 09/16/22 22:30 09/16/22 22:20 09/16/22 22:10 09/16/22 22:00 09/16/22 22:00 09/16/22 21:50 09/16/22 21:40 09/16/22 21:30 09/16/22 21:20 09/16/22 22:56 Coding Level of Care Code 46121 Subseq Hosp Care Lvl 2 Diagnoses AAA (abdominal aortic aneurysm) I71.4 Post-op pain G89.18 MIKE (acute kidney injury) N17.9 Hypotension I95.9 RADHA (obstructive sleep apnea) G47.33 Hypoxia R09.02
--- NOTE | 2022-09-17 09:47 | Surgery Progress Note ---
Date of Service September 17, 2022 Assessment & Plan (1) S/P endovascular aneurysm repair: Plan: Pt POD 3 after EVAR with L to R fem fem BPG. Overall doing ok. Blood pressure much better. Has been up in a chair without lightheadedness. (2) MIKE (acute kidney injury): Plan: Creat may have plateaued. Will continue hydration for another 24 hours unless nephro thinks he doesnt need it. Will transfer to a floor and start ambulating Admission and Anticipated Discharge Date Admission Date: September 14, 2022 Subjective Patient complains of slight groin pain and arm pain from his IV. Has been up in chair but has not ambulated yet. Physical Exam Constitutional: WD/WN, vitals as above Respiratory: normal respiratory effort; no respiratory distress Cardiovascular: Rate/Rhythm: regular rate and regular rhythm Extremities: normal capillary refill good doppler signals in feet per chart Gastrointestinal (Abdomen): Inspection/Auscultation: abdomen normal to inspection Percussion/Palpation: abdomen soft; abdomen nontender Skin: + incision (prevena dressings intact) Neurologic: moves all extremities Psychiatric: Orientation: alert and oriented x 3 Results & Data ([facility]) Vital Signs (Past 12 Hours) Vital Signs Temp Pulse Resp BP Pulse Ox O2 Del Method O2 Flow Rate 09/17/22 09:02 122/57 L 09/17/22 09:02 90 18 95 Room Air 09/17/22 09:00 88 21 93 09/17/22 08:00 93 H 15 89 L Room Air 09/17/22 08:00 128/76 09/17/22 07:01 99 H 19 09/17/22 08:00 36.9 C 09/17/22 05:40 95 H 18 95 09/17/22 05:30 94 H 14 96 09/17/22 05:20 95 H 16 95 09/17/22 05:10 95 H 15 95 09/17/22 05:00 100 H 17 94 CPAP 09/17/22 05:00 120/78 09/17/22 04:50 96 H 16 95 09/17/22 04:40 96 H 15 95 09/17/22 04:30 96 H 18 95 09/17/22 04:20 96 H 22 96 09/17/22 04:10 97 H 19 96 09/17/22 04:00 97 H 13 94 CPAP 09/17/22 04:00 117/78 09/17/22 03:50 96 H 15 97 09/17/22 03:40 97 H 15 96 09/17/22 03:30 94 H 15 97 09/17/22 03:20 93 H 17 98 09/17/22 03:10 94 H 16 97 09/17/22 03:00 87 18 97 CPAP 09/17/22 03:00 125/73 09/17/22 02:50 96 H 21 94 09/17/22 02:40 86 17 97 09/17/22 02:30 98 H 17 97 09/17/22 02:20 89 25 H 95 CPAP 09/17/22 02:10 76 21 96 09/17/22 02:00 92 H 15 09/17/22 02:00 115/73 09/17/22 01:50 90 16 98 CPAP 09/17/22 01:40 92 H 15 98 09/17/22 01:30 88 19 97 09/17/22 01:20 95 H 13 96 09/17/22 01:10 93 H 15 99 09/17/22 01:00 98 H 17 96 09/17/22 01:00 126/67 09/17/22 00:50 95 H 14 97 09/17/22 00:40 94 H 12 98 CPAP 09/17/22 04:00 37.2 C 09/17/22 02:58 89 23 97 09/17/22 00:30 91 H 18 99 CPAP 09/17/22 00:20 93 H 26 H 96 09/17/22 00:10 92 H 19 98 09/17/22 00:00 94 H 14 94 CPAP 09/17/22 00:00 107/88 09/16/22 23:50 99 H 14 98 09/16/22 23:40 99 H 16 97 09/16/22 23:30 100 H 15 96 CPAP 09/16/22 23:20 95 H 16 98 CPAP 09/16/22 23:10 97 H 18 97 CPAP 09/16/22 23:00 96 H 15 95 CPAP 09/16/22 23:00 117/78 09/17/22 00:00 98 H 09/16/22 22:50 99 H 16 97 CPAP 09/16/22 22:40 100 H 20 91 Nasal Cannula 2 09/16/22 22:30 101 H 18 90 09/16/22 22:20 99 H 17 93 09/16/22 22:10 102 H 18 93 09/16/22 22:00 103 H 16 09/16/22 22:00 117/73 09/16/22 21:50 101 H 15 96 09/16/22 22:56 37.6 C H FiO2 09/17/22 09:02 09/17/22 09:02 09/17/22 09:00 09/17/22 08:00 09/17/22 08:00 09/17/22 07:01 09/17/22 08:00 09/17/22 05:40 09/17/22 05:30 09/17/22 05:20 09/17/22 05:10 09/17/22 05:00 09/17/22 05:00 09/17/22 04:50 09/17/22 04:40 09/17/22 04:30 09/17/22 04:20 09/17/22 04:10 09/17/22 04:00 09/17/22 04:00 09/17/22 03:50 09/17/22 03:40 09/17/22 03:30 09/17/22 03:20 09/17/22 03:10 09/17/22 03:00 09/17/22 03:00 09/17/22 02:50 09/17/22 02:40 09/17/22 02:30 09/17/22 02:20 09/17/22 02:10 09/17/22 02:00 09/17/22 02:00 09/17/22 01:50 09/17/22 01:40 09/17/22 01:30 09/17/22 01:20 09/17/22 01:10 09/17/22 01:00 09/17/22 01:00 09/17/22 00:50 09/17/22 00:40 09/17/22 04:00 09/17/22 02:58 30 09/17/22 00:30 09/17/22 00:20 09/17/22 00:10 09/17/22 00:00 09/17/22 00:00 09/16/22 23:50 09/16/22 23:40 09/16/22 23:30 09/16/22 23:20 09/16/22 23:10 09/16/22 23:00 09/16/22 23:00 09/17/22 00:00 09/16/22 22:50 09/16/22 22:40 09/16/22 22:30 09/16/22 22:20 09/16/22 22:10 09/16/22 22:00 09/16/22 22:00 09/16/22 21:50 09/16/22 22:56
--- NOTE | 2022-09-17 12:59 | Nephrology Progress Note ---
Date of Service September 17, 2022 Assessment & Plan (1) MIKE (acute kidney injury): (2) S/P endovascular aneurysm repair: (3) Hypotension: (4) Hypertension, essential: (5) Dyslipidemia: (6) Type 2 diabetes mellitus: Plan 71 y o m with stage 3B CKD, b/l cr 1.5 to 1.7, Most likely secondary to microvascular disease with history of hypertension, diabetes, peripheral vascular disease and smoking. Has low-grade proteinuria. He ad elective endovascular repair of AAA on 09/14/22 with fem - fem bipass. postoperatively developed MIKE with IV contrast exposure, hypotension, creatinine peaked to 2.6 and staying relatively stable today. Electrolyte acceptable. Decent urine outp ut. Blood pressure improved and staying stable. Overall clinically doing well. -- Continue monitor renal function and electrolyte, okay to continue on IV fluid for now. rest to maintain p.o. intake. -- Ok to resume amlodipine as needed the systolic blood pressure staying above 140. continue to hold lisinopril for now. Avoid all NSAIDs. Will follow. Admission and Anticipated Discharge Date Admission Date: September 14, 2022 Adina Harden was seen and evaluated in his room with his at bedside. Overall he feels better, denies any shortness of breath or chest pain. Was just transferred out of ICU. decent urine output. Creatinine seems to have plateau ed, electrolyte acceptable. Review of Systems Review of Systems: Detailed review of system was otherwise unremarkable. Physical Exam Constitutional: WD/WN, vitals as above no acute distress Neck: normal visual inspection Respiratory: Auscultation: lungs clear to auscultation bilaterally Cardiovascular: Rate/Rhythm: regular rate and regular rhythm Extremities: + edema (trace edema) Skin: no rashes Neurologic: no focal motor deficits Psychiatric: Orientation: alert and oriented x 3 Results & Data ([facility]) Vital Signs (Past 12 Hours) Vital Signs Temp Pulse Pulse Resp BP BP Pulse Ox 09/17/22 11:00 36.4 C L 90 16 157/75 H 95 09/17/22 09:02 122/57 L 09/17/22 09:02 90 18 95 09/17/22 09:00 88 21 93 09/17/22 08:00 93 H 15 89 L 09/17/22 08:00 128/76 09/17/22 07:01 99 H 19 09/17/22 07:40 09/17/22 08:00 36.9 C 09/17/22 05:40 95 H 18 95 09/17/22 05:30 94 H 14 96 09/17/22 05:20 95 H 16 95 09/17/22 05:10 95 H 15 95 09/17/22 05:00 100 H 17 94 09/17/22 05:00 120/78 09/17/22 04:50 96 H 16 95 09/17/22 04:40 96 H 15 95 09/17/22 04:30 96 H 18 95 09/17/22 04:20 96 H 22 96 09/17/22 04:10 97 H 19 96 09/17/22 04:00 97 H 13 94 09/17/22 04:00 117/78 09/17/22 03:50 96 H 15 97 09/17/22 03:40 97 H 15 96 09/17/22 03:30 94 H 15 97 09/17/22 03:20 93 H 17 98 09/17/22 03:10 94 H 16 97 09/17/22 03:00 87 18 97 09/17/22 03:00 125/73 09/17/22 02:50 96 H 21 94 09/17/22 02:40 86 17 97 09/17/22 02:30 98 H 17 97 09/17/22 02:20 89 25 H 95 09/17/22 02:10 76 21 96 09/17/22 02:00 92 H 15 09/17/22 02:00 115/73 09/17/22 01:50 90 16 98 09/17/22 01:40 92 H 15 98 09/17/22 01:30 88 19 97 09/17/22 01:20 95 H 13 96 09/17/22 01:10 93 H 15 99 09/17/22 01:00 98 H 17 96 09/17/22 01:00 126/67 09/17/22 04:00 37.2 C 09/17/22 02:58 89 23 97 O2 Del Method FiO2 09/17/22 11:00 Room Air 09/17/22 09:02 09/17/22 09:02 Room Air 09/17/22 09:00 09/17/22 08:00 Room Air 09/17/22 08:00 09/17/22 07:01 09/17/22 07:40 Room Air 09/17/22 08:00 09/17/22 05:40 09/17/22 05:30 09/17/22 05:20 09/17/22 05:10 09/17/22 05:00 CPAP 09/17/22 05:00 09/17/22 04:50 09/17/22 04:40 09/17/22 04:30 09/17/22 04:20 09/17/22 04:10 09/17/22 04:00 CPAP 09/17/22 04:00 09/17/22 03:50 09/17/22 03:40 09/17/22 03:30 09/17/22 03:20 09/17/22 03:10 09/17/22 03:00 CPAP 09/17/22 03:00 09/17/22 02:50 09/17/22 02:40 09/17/22 02:30 09/17/22 02:20 CPAP 09/17/22 02:10 09/17/22 02:00 09/17/22 02:00 09/17/22 01:50 CPAP 09/17/22 01:40 09/17/22 01:30 09/17/22 01:20 09/17/22 01:10 09/17/22 01:00 09/17/22 01:00 09/17/22 04:00 09/17/22 02:58 30 PG Care Time/CCT Total # of Minutes Spent Total Time Spent with Patient: Total time spent is greater than 50% in coordination of care (as documented) at patient's floor/unit and/or counseling patient: Coding Level of Care Code 21034 Subseq Hosp Care Lvl 3 Diagnoses MIKE (acute kidney injury) N17.9 S/P endovascular aneurysm repair Z98.890; Z86.79 Hypotension I95.9 Hypertension, essential I10 Dyslipidemia E78.5 Type 2 diabetes mellitus E11.9
--- NOTE | 2022-09-17 16:21 | Hospitalist Progress Note ---
Date of Service September 17, 2022 Assessment & Plan (1) S/P endovascular aneurysm repair: Plan: -Medicine was asked to see patient in consultation -Patient is s/p endovascular repair of aortic aneurysm -He developed hypotension and scrotal hematoma Femoral sites with wound VAC in place, no surrounding swelling/hematoma PT pulses intact to Doppler at bedside exam bilaterally. Patient denies limb pain. Ankle dorsiflexion/plantarflexion 5/5 bilaterally and sensation of soft touch intact bilaterally No evidence of retroperitoneal heamtoma on CT Hemoglobin is slowly downtrending currently 10.7 from preop of 13.5 CT pending for evaluation of retroperitoneal hematoma -Rest of management by vascular team (2) MIKE (acute kidney injury): Plan: MIKE Elevated Cr above baseline -Most likely from contrast Nephrology consulted, appreciate recs No NSAIDs, avoid nephrotoxins, trend BMP Hold lisinopril (3) AAA (abdominal aortic aneurysm): Plan: s/p endovasculAR REPAIR (4) Hypertension, essential: Plan: Continue to hold Lisinopril, resume Amlodipine (5) Chronic CHF: Plan: Chronic HF w r EF Mildly reduced EF Patient denies history of heart failure, endorses intermittent orthopnea which she has attributed to RADHA but does not use NIV Denies history of leg swelling Cautious fluids, x-ray/BMP pending (6) Type 2 diabetes mellitus: Plan: Type II DM Hold home metformin continue to monitor glucose (7) Dyslipidemia: (8) Hypotension: Plan: resolved Plan continue hospitalization, disposition per primary team Admission and Anticipated Discharge Date Admission Date: September 14, 2022 Subjective patient seen and examined in the ICU, stable, still with some scrotal edema Review of Systems Review of Systems: All systems reviewed are negative, apart from the ones contained in the history. Physical Exam Physical Exam: The patient is awake, alert and oriented 3, well developed and well nourished, normocephalic and atraumatic, lying in bed and in no acute distress. HEENT--PERRL, EOMI, mucous membranes and oropharynx mildly dry Neck--supple. No JVD. No bruits. Thyroid normal, trachea midline, no adenopathy. Heart--normal S1 and S2. No murmurs, rubs or gallops. Lungs--clear bilaterally, no respiratory distress, no accessory muscle use. Abdomen--normal bowel sounds and soft. Mild epigastric and left sided abdominal pain Extremities--no cyanosis or clubbing. No edema. Dermatologic--normal skin turgor, normal color, no abnormal lymph nodes, no rash. Neurologic--cranial nerves II through XII grossly intact. Rheumatologic--normal range of motion. Psychiatric--normal affect. Results & Data Results & Data ([facility]) Vital Signs (Past 12 Hours) Vital Signs Temp Pulse Pulse Pulse Resp BP BP 09/17/22 15:20 99.7 F H 92 H 18 09/17/22 11:00 97.5 F L 90 16 157/75 H 09/17/22 09:02 122/57 L 09/17/22 09:02 90 18 09/17/22 09:00 88 21 09/17/22 08:00 93 H 15 09/17/22 08:00 128/76 09/17/22 07:01 99 H 19 09/17/22 07:40 09/17/22 08:00 98.4 F 09/17/22 05:40 95 H 18 09/17/22 05:30 94 H 14 09/17/22 05:20 95 H 16 09/17/22 05:10 95 H 15 09/17/22 05:00 100 H 17 09/17/22 05:00 120/78 09/17/22 04:50 96 H 16 09/17/22 04:40 96 H 15 09/17/22 04:30 96 H 18 09/17/22 04:20 96 H 22 BP Pulse Ox O2 Del Method 09/17/22 15:20 159/86 H 95 Room Air 09/17/22 11:00 95 Room Air 09/17/22 09:02 09/17/22 09:02 95 Room Air 09/17/22 09:00 93 09/17/22 08:00 89 L Room Air 09/17/22 08:00 09/17/22 07:01 09/17/22 07:40 Room Air 09/17/22 08:00 09/17/22 05:40 95 09/17/22 05:30 96 09/17/22 05:20 95 09/17/22 05:10 95 09/17/22 05:00 94 CPAP 09/17/22 05:00 09/17/22 04:50 95 12/10/22 04:40 95 09/17/22 04:30 95 09/17/22 04:20 96 PG Care Time/CCT Total # of Minutes Spent Total Time Spent with Patient: Total time spent is greater than 50% in coordination of care (as documented) at patient's floor/unit and/or counseling patient: Coding Level of Care Code 55836 Inpt Consult Level 2 Diagnoses S/P endovascular aneurysm repair Z98.890; Z86.79 MIKE (acute kidney injury) N17.9 AAA (abdominal aortic aneurysm) I71.4 Hypertension, essential I10 Chronic CHF I50.9 Type 2 diabetes mellitus E11.9 Dyslipidemia E78.5 Hypotension I95.9 Time Spent (min) 35
[2022-09-18 06:10] LABS: Hematocrit (blood only) 31.3 % (40.1-51.0); Hemoglobin 10.6 g/dl (14.0-18.0); Mean Corpuscular Hemoglobin 27.1 pg (25.0-34.0); Mean Corpuscular Hgb Conc 33.9 g/dL (32.0-36.0); Mean Corpuscular Volume 80.1 fL (80.0-100.0); Mean Platelet Volume 11.1 fL (9.4-12.4); Platelet Count 133 K/uL (130-400); RDW Coefficient of Variation 14.3 % (11.5-14.5); RDW Standard Deviation 41.4 fL (36.4-46.3); Red Blood Count 3.91 M/uL (4.63-6.08)
[2022-09-18 06:30] LABS: BUN Creatinine Ratio 18.9 (10-20); Creatinine Clr Calc Pharmacy 40.1 ml/min; Est GFR (African American) 33.8 ml/min; Est GFR (Non-African American) 29.1 ml/min; Potassium 4.1 mmol/L (3.5-5.1)
[2022-09-18] MEDS: cilostazoL 100 MG TAB PO SCH ×2 (08:33→19:48)
[2022-09-18] MEDS: ASPIRIN 81 MG ECTAB PO SCH (08:33)
[2022-09-18] MEDS: SIMVASTATIN 40 MG TAB PO SCH (08:33)
[2022-09-18] MEDS: INSULIN ASPART PER UNIT SC SCH ×4 (09:05→20:33)
[2022-09-18] MEDS: SODIUM CHLORIDE 0.9% 1000ML 1,000 ML IV SCH ×2 (09:59→17:42)
--- NOTE | 2022-09-18 11:01 | Surgery Progress Note ---
Date of Service September 18, 2022 Assessment & Plan (1) S/P endovascular aneurysm repair: Plan: Pt POD#4 after EVAR with L to R fem fem BPG. BP elevated and amlodipine restarted. PT/OT consults sent on the (2) MIKE (acute kidney injury): Plan: Creat down to 2.17 today. Will continue fluids til tomorrow. D/C [place] today. Admission and Anticipated Discharge Date Admission Date: September 14, 2022 Subjective Patient complains of difficulty in getting out of bed. did ambulate with a walker once up. Physical Exam Constitutional: WD/WN, vitals as above Respiratory: normal respiratory effort; no respiratory distress Cardiovascular: Rate/Rhythm: regular rate and regular rhythm Extremities: normal capillary refill Good distal dopplers Gastrointestinal (Abdomen): Inspection/Auscultation: abdomen normal to inspection Percussion/Palpation: abdomen soft; abdomen nontender Skin: + incision (prevena dressings intact) Neurologic: moves all extremities Psychiatric: Orientation: alert Results & Data ([facility]) Vital Signs (Past 12 Hours) Vital Signs Temp Pulse Pulse Pulse Resp BP BP 09/18/22 09:00 86 17 159/76 H 09/18/22 08:00 36.5 C 68 18 174/84 H 09/17/22 23:10 36.6 C 84 18 171/83 H Pulse Ox O2 Del Method 09/18/22 09:00 96 Room Air 09/18/22 08:00 97 Room Air 09/17/22 23:10 95 Room Air
--- NOTE | 2022-09-18 11:24 | Nephrology Progress Note ---
Date of Service September 18, 2022 Assessment & Plan (1) MIKE (acute kidney injury): (2) S/P endovascular aneurysm repair: (3) Hypotension: (4) Hypertension, essential: (5) Dyslipidemia: (6) Type 2 diabetes mellitus: Plan 71 y o m with stage 3B CKD, b/l cr 1.5 to 1.7, Most likely secondary to microvascular disease with history of hypertension, diabetes, peripheral vascular disease and smoking. Has low-grade proteinuria. He ad elective endovascular repair of AAA on 09/14/22 with fem - fem bipass. postoperatively developed MIKE with IV contrast exposure, hypotension, creatinine peaked to 2.6 and staying relatively stable today. Electrolyte acceptable. Decent urine outp ut. Blood pressure improved and staying stable. Overall clinically doing well. -- DC IV fluid as BP has been running high, Continue monitor renal function and electrolyte, encouraged to increase po intake. -- Ok to resume amlodipine as needed the systolic blood pressure staying above 140. continue to hold lisinopril for now but OK to resume on discharge Avoid all NSAIDs. Will follow. Admission and Anticipated Discharge Date Admission Date: September 14, 2022 Adina Harden was seen and evaluated in his room with his at bedside. Overall he feels better, OOB and sitting in chair ,denies any shortness of breath or chest pain. C/O pain in rt groin. decent urine output, net negative. Creatinine slightly improved, electrolyte acceptable. BP high. Review of Systems Review of Systems: Detailed review of system was otherwise unremarkable. Physical Exam Constitutional: WD/WN, vitals as above no acute distress Neck: normal visual inspection Respiratory: Auscultation: lungs clear to auscultation bilaterally Cardiovascular: Rate/Rhythm: regular rate and regular rhythm Extremities: + edema (trace edema) Skin: no rashes Neurologic: no focal motor deficits Psychiatric: Orientation: alert and oriented x 3 Results & Data ([facility]) Vital Signs (Past 12 Hours) Vital Signs Temp Pulse Pulse Resp BP BP Pulse Ox 09/18/22 08:33 09/18/22 09:00 86 17 159/76 H 96 09/18/22 08:00 36.5 C 68 18 174/84 H 97 O2 Del Method 09/18/22 08:33 Room Air 09/18/22 09:00 Room Air 12/11/22 08:00 Room Air PG Care Time/CCT Total # of Minutes Spent Total Time Spent with Patient: Total time spent is greater than 50% in coordination of care (as documented) at patient's floor/unit and/or counseling patient: Coding Level of Care Code 78456 Subseq Hosp Care Lvl 3 Diagnoses MIKE (acute kidney injury) N17.9 S/P endovascular aneurysm repair Z98.890; Z86.79 Hypotension I95.9 Hypertension, essential I10 Dyslipidemia E78.5 Type 2 diabetes mellitus E11.9
[2022-09-18] MEDS: amLODIPine BESYLATE 5 MG TAB PO SCH (13:10)
--- NOTE | 2022-09-18 15:06 | Hospitalist Progress Note ---
Date of Service September 18, 2022 Assessment & Plan (1) S/P endovascular aneurysm repair: Plan: -Medicine was asked to see patient in consultation -Patient is s/p endovascular repair of aortic aneurysm -He developed hypotension and scrotal hematoma, now much improved Femoral sites with wound VAC in place, no surrounding swelling/hematoma PT pulses intact to Doppler at bedside exam bilaterally. No evidence of retroperitoneal heamtoma on CT -Rest of management by vascular team (2) MIKE (acute kidney injury): Plan: MIKE Elevated Cr above baseline -Most likely from contrast Nephrology consulted, appreciate recs No NSAIDs, avoid nephrotoxins, trend BMP Hold lisinopril (3) AAA (abdominal aortic aneurysm): Plan: s/p endovasculAR REPAIR (4) Chronic CHF: Plan: Chronic HF w r EF Mildly reduced EF Patient denies history of heart failure, endorses intermittent orthopnea which she has attributed to RADHA but does not use NIV Denies history of leg swelling Cautious fluids, x-ray/BMP pending (5) Hypertension, essential: Plan: Continue to hold Lisinopril, resume Amlodipine (6) Type 2 diabetes mellitus: Plan: Type II DM Hold home metformin continue to monitor glucose (7) Dyslipidemia: (8) Hypotension: Plan: resolved Plan continue hospitalization, disposition per primary team, vascular Admission and Anticipated Discharge Date Admission Date: September 14, 2022 Subjective patient seen and examined, scrotal swelling has improved Review of Systems Review of Systems: All systems reviewed are negative, apart from the ones contained in the history. Physical Exam Physical Exam: The patient is awake, alert and oriented 3, well developed and well nourished, normocephalic and atraumatic, lying in bed and in no acute distress. HEENT--PERRL, EOMI, mucous membranes and oropharynx mildly dry Neck--supple. No JVD. No bruits. Thyroid normal, trachea midline, no adenopathy. Heart--normal S1 and S2. No murmurs, rubs or gallops. Lungs--clear bilaterally, no respiratory distress, no accessory muscle use. Abdomen--normal bowel sounds and soft. Mild epigastric and left sided abdominal pain Extremities--no cyanosis or clubbing. No edema. Dermatologic--normal skin turgor, normal color, no abnormal lymph nodes, no rash. Neurologic--cranial nerves II through XII grossly intact. Rheumatologic--normal range of motion. Psychiatric--normal affect. Results & Data Results & Data ([facility]) Vital Signs (Past 12 Hours) Vital Signs Temp Pulse Pulse Pulse Resp BP BP 09/18/22 14:43 98.6 F 84 16 165/84 H 09/18/22 08:33 09/18/22 09:00 86 17 159/76 H 09/18/22 08:00 97.7 F 68 18 174/84 H Pulse Ox O2 Del Method 09/18/22 14:43 98 Room Air 09/18/22 08:33 Room Air 09/18/22 09:00 96 Room Air 09/18/22 08:00 97 Room Air PG Care Time/CCT Total # of Minutes Spent Total Time Spent with Patient: Total time spent is greater than 50% in coordination of care (as documented) at patient's floor/unit and/or counseling patient: Coding Level of Care Code 73539 Inpt Consult Level 2 Diagnoses S/P endovascular aneurysm repair Z98.890; Z86.79 MIKE (acute kidney injury) N17.9 AAA (abdominal aortic aneurysm) I71.4 Chronic CHF I50.9 Hypertension, essential I10 Type 2 diabetes mellitus E11.9 Dyslipidemia E78.5 Hypotension I95.9 Time Spent (min) 35
[2022-09-19 06:13] LABS: Hematocrit (blood only) 31.1 % (40.1-51.0); Hemoglobin 10.5 g/dl (14.0-18.0); Mean Corpuscular Hgb Conc 33.8 g/dL (32.0-36.0); Mean Corpuscular Volume 79.9 fL (80.0-100.0); Mean Platelet Volume 10.5 fL (9.4-12.4); Platelet Count 149 K/uL (130-400); RDW Coefficient of Variation 14.3 % (11.5-14.5); RDW Standard Deviation 41.4 fL (36.4-46.3); Red Blood Count 3.89 M/uL (4.63-6.08); White Blood Count 7.51 K/ul (4.8-10.8)
[2022-09-19 06:38] LABS: BUN Creatinine Ratio 17.1 (10-20); Calcium 7.9 mg/dl (8.5-10.1); Creatinine Clr Calc Pharmacy 40.1 ml/min; Est GFR (African American) 33.8 ml/min; Est GFR (Non-African American) 29.1 ml/min; Potassium 4.2 mmol/L (3.5-5.1)
[2022-09-19] MEDS: INSULIN ASPART PER UNIT SC SCH ×4 (08:58→20:48)
[2022-09-19] MEDS: ASPIRIN 81 MG ECTAB PO SCH (08:59)
[2022-09-19] MEDS: SIMVASTATIN 40 MG TAB PO SCH (09:00)
[2022-09-19] MEDS: cilostazoL 100 MG TAB PO SCH ×2 (09:00→20:08)
--- NOTE | 2022-09-19 10:03 | Surgery Progress Note ---
Date of Service September 19, 2022 Assessment & Plan (1) S/P endovascular aneurysm repair: Plan: Pt POD#5 after EVAR with L to R fem fem BPG. Overall doing well. Pt/OT to eval pt today. Likely require placement for rehab. (2) MIKE (acute kidney injury): Plan: Creat stable at 2.17 today. D/C [facility] today. Admission and Anticipated Discharge Date Admission Date: September 14, 2022 Subjective 71 yo m POD #5 after EVAR and L to R fem fem BPG, seen in f/u today. Pt states feeling somewhat improved, but still having BL groin pain. Denies other new complaints. PT did walk pt in hallway with walker, required assistance. Cr stable at 2.1. Review of Systems Review of Systems: All systems reviewed & are unremarkable except as noted in HPI & below Physical Exam Constitutional: WD/WN, vitals as above not in distress Respiratory: normal respiratory effort, lungs clear to auscultation normal respiratory effort; no respiratory distress Auscultation: lungs clear to auscultation bilaterally and + diminished lung sounds Cardiovascular: Rate/Rhythm: regular rate and regular rhythm Vessels: femoral pulses present (BL prevena dressings in place), posterior tibial pulses present (+1 BLE), dorsalis pedis pulses present (+1 BLE) and radial pulses present; + abnormal peripheral pulses Extremities: normal capillary refill Gastrointestinal (Abdomen): Inspection/Auscultation: abdomen normal to inspection and normal bowel sounds Percussion/Palpation: abdomen soft; a bdomen nontender Musculoskeletal: no cyanosis or clubbing, extremities motor strength 5/5 Skin: no rashes, warm and dry + ecchymosis (Mild ecchymosis noted over graft tunnel/pelvis, improved. Scrotum improved) and + incision (BL groins prevena in place. ) Neurologic: moves all extremities and awake; no focal motor deficits and not confused Psychiatric: A+Ox3, euthymic affect Results & Data ([facility]) Vital Signs (Past 12 Hours) Vital Signs Temp Pulse Resp BP Pulse Ox O2 Del Method 09/18/22 23:05 36.8 C 83 18 169/90 H 97 Room Air
--- NOTE | 2022-09-19 10:10 | Nephrology Progress Note ---
Date of Service September 19, 2022 Assessment & Plan (1) MIKE (acute kidney injury): (2) S/P endovascular aneurysm repair: (3) Hypotension: (4) Hypertension, essential: (5) Dyslipidemia: (6) Type 2 diabetes mellitus: Plan 71 y o m with stage 3B CKD, b/l cr 1.5 to 1.7, Most likely secondary to microvascular disease with history of hypertension, diabetes, peripheral vascular disease and smoking. Has low-grade proteinuria. He ad elective endovascular repair of AAA on 09/14/22 with fem - fem bipass. postoperatively developed MIKE with IV contrast exposure, hypotension, creatinine peaked to 2.6 and staying relatively stable today. Electrolyte acceptable. Decent urine outp ut. Blood pressure improved and staying stable. Overall clinically doing well. Off of IV fluid. -- Continue monitor renal function and electrolyte, encouraged to increase po intake. -- increase amlodipine as needed, continue to hold lisinopril for now but OK to resume on discharge Avoid all NSAIDs. Will follow. Admission and Anticipated Discharge Date Admission Date: September 14, 2022 Adina Harden was seen and evaluated in his room. Overall he feels better, OOB and sitting in chair ,denies any shortness of breath or chest pain but frustrated with continued hospital stay. C/O pain in rt groin. decent urine output, net negative. Creatinine relatively stable, electrolyte acceptable. BP high. Review of Systems Review of Systems: Detailed review of system was otherwise unremarkable. Physical Exam Constitutional: WD/WN, vitals as above no acute distress Neck: normal visual inspection Respiratory: Auscultation: lungs clear to auscultation bilaterally Cardiovascular: Rate/Rhythm: regular rate and regular rhythm Extremities: + edema (trace edema) Skin: no rashes Neurologic: no focal motor deficits Psychiatric: Orientation: alert and oriented x 3 Results & Data ([facility]) Vital Signs (Past 12 Hours) Vital Signs Temp Pulse Resp BP Pulse Ox O2 Del Method 09/18/22 23:05 36.8 C 83 18 169/90 H 97 Room Air PG Care Time/CCT Total # of Minutes Spent Total Time Spent with Patient: Total time spent is greater than 50% in coordination of care (as documented) at patient's floor/unit and/or counseling patient: Coding Level of Care Code 67899 Subseq Hosp Care Lvl 3 Diagnoses MIKE (acute kidney injury) N17.9 S/P endovascular aneurysm repair Z98.890; Z86.79 Hypotension I95.9 Hypertension, essential I10 Dyslipidemia E78.5 Type 2 diabetes mellitus E11.9
[2022-09-19] MEDS: SODIUM CHLORIDE 0.9% 1000ML 1,000 ML IV SCH (12:06)
[2022-09-19] MEDS: amLODIPine BESYLATE 5 MG TAB PO SCH (13:02)
--- NOTE | 2022-09-19 15:42 | Hospitalist Progress Note ---
Date of Service September 19, 2022 Assessment & Plan (1) S/P endovascular aneurysm repair: Plan: Medicine was asked to see patient in consultation. - S/p endovascular repair of aortic aneurysm & fem/fem bypass with graft on 09/14 - He developed hypotension and scrotal hematoma, now much improved. Femoral sites with wound VAC in place, no surrounding swelling/hematoma. - Management by vascular team (2) MIKE (acute kidney injury): Plan: Baseline Cr ~1.6, though priors in 2020 were as high as 1.7 - 1.9. Elevated Cr above baseline with Cr up to 2.6 on 09/16. - Most likely from contrast Nephrology consulted, appreciate recs No NSAIDs, avoid nephrotoxins, trend BMP Hold lisinopril, but can restart on discharge. - Presently with Cr. up to 2.2. Stable. (3) AAA (abdominal aortic aneurysm): Plan: S/p repair as above. (4) Chronic CHF: Plan: Chronic HF w r EF. Echo in [facility] from 08/05/2022 showed EF 40 - 45%. Patient denies history of congestive heart failure apart from intermittent orthopnea which he has attributed to RADHA but does not use NIV. Denies history of leg swelling Monitor volume status - Presently without LE edema. (5) Hypertension, essential: Plan: BP today is 165/80. - Hold lisinopril - Continue amlodipine (6) Type 2 diabetes mellitus: Plan: A1c was 6.0% in 08/2022. Hold home metformin Continue to monitor glucose. Sliding scale insulin. (7) Dyslipidemia: Plan: - Continue simvastatin Admission and Anticipated Discharge Date Admission Date: September 14, 2022 Subjective Feeling dispirited today. He does not want to go to rehab. He is having pain in the groin, and is worried about a "wire" in the groin. Physical Exam Constitutional: WD/WN, vitals as above Eyes: EOM intact bilaterally; no conjunctival abnormality ENMT: external ear and nose normal, oropharynx normal Neck: trachea midline, no thyromegaly normal visual inspection Respiratory: normal respiratory effort, lungs clear to auscultation no respiratory distress Cardiovascular: RRR, no murmur, no edema Gastrointestinal (Abdomen): Inspection/Auscultation: abdomen normal to inspection; abdomen not distended Musculoskeletal: no cyanosis or clubbing, extremities motor strength 5/5 Skin: no rashes, warm and dry Bilateral wound vacs in groins Neurologic: moves all extremities and awake Psychiatric: Orientation: alert, oriented to person and cooperative Results & Data Results & Data ([facility]) Vital Signs (Past 12 Hours) Vital Signs Temp Pulse Pulse Resp BP Pulse Ox O2 Del Method 09/19/22 14:56 37.0 C 80 18 166/80 H 97 Room Air 09/19/22 11:30 37.0 C 60 16 182/80 H 97 Room Air PG Care Time/CCT Total # of Minutes Spent Total Time Spent with Patient: Total time spent is greater than 50% in coordination of care (as documented) at patient's floor/unit and/or counseling patient: Coding Level of Care Code 56978 Subseq Hosp Care Lvl 3 Diagnoses S/P endovascular aneurysm repair Z98.890; Z86.79 MIKE (acute kidney injury) N17.9 AAA (abdominal aortic aneurysm) I71.4 Chronic CHF I50.9 Hypertension, essential I10 Type 2 diabetes mellitus E11.9 Dyslipidemia E78.5
[2022-09-20 07:17] LABS: Hematocrit (blood only) 32.2 % (40.1-51.0); Hemoglobin 10.9 g/dl (14.0-18.0); Mean Corpuscular Hgb Conc 33.9 g/dL (32.0-36.0); Mean Corpuscular Volume 79.7 fL (80.0-100.0); Mean Platelet Volume 10.8 fL (9.4-12.4); Platelet Count 172 K/uL (130-400); RDW Coefficient of Variation 14.1 % (11.5-14.5); RDW Standard Deviation 41.3 fL (36.4-46.3); Red Blood Count 4.04 M/uL (4.63-6.08)
[2022-09-20 07:47] LABS: BUN Creatinine Ratio 16.2 (10-20); Creatinine Clr Calc Pharmacy 42.3 ml/min; Est GFR (African American) 36.4 ml/min; Est GFR (Non-African American) 31.4 ml/min; Magnesium 1.9 mg/dl (1.7-2.4)
[2022-09-20] MEDS: cilostazoL 100 MG TAB PO SCH (08:26)
[2022-09-20] MEDS: SIMVASTATIN 40 MG TAB PO SCH (08:26)
[2022-09-20] MEDS: ASPIRIN 81 MG ECTAB PO SCH (08:26)
[2022-09-20] MEDS: INSULIN ASPART PER UNIT SC SCH ×2 (08:56→13:33)
--- NOTE | 2022-09-20 10:12 | Nephrology Progress Note ---
Date of Service September 20, 2022 Assessment & Plan (1) MIKE (acute kidney injury): (2) S/P endovascular aneurysm repair: (3) Hypotension: (4) Hypertension, essential: (5) Dyslipidemia: (6) Type 2 diabetes mellitus: Plan 71 y o m with stage 3B CKD, b/l cr 1.5 to 1.7, most likely secondary to microvascular disease with history of hypertension, diabetes, peripheral vascular disease and smoking. Has low-grade proteinuria. He ad elective endovascular repair of AAA on 09/14/22 with fem - fem bi pass. postoperatively developed MIKE with IV contrast exposure, hypotension, creatinine peaked to 2.6 and staying relatively stable today. Electrolyte acceptable. Decent urine output. Blood pressure improved and staying stable. Overall clinically doing well. Off of IV fluid. Renal function, electrolyte acceptable. BP high. -- Continue monitor renal function and electrolyte, encouraged to increase po intake. -- increase amlodipine to 10 mg/d. Avoid all NSAIDs. Will follow. Admission and Anticipated Discharge Date Admission Date: September 14, 2022 Adina Harden was seen and evaluated in his room. Overall he feels better, OOB and sitting in chair ,denies any shortness of breath or chest pain. Has decent urine output. Renal function continues to improve slowly, electrolyte acceptable. BP high. Review of Systems Review of Systems: Detailed review of system was otherwise unremarkable. Physical Exam Constitutional: WD/WN, vitals as above no acute distress Neck: normal visual inspection Respiratory: Auscultation: lungs clear to auscultation bilaterally Cardiovascular: Rate/Rhythm: regular rate and regular rhythm Extremities: + edema (trace edema) Skin: no rashes Neurologic: no focal motor deficits Psychiatric: Orientation: alert and oriented x 3 Results & Data ([facility]) Vital Signs (Past 12 Hours) Vital Signs Temp Pulse Resp BP BP Pulse Ox O2 Del Method 09/20/22 08:00 Room Air 09/20/22 07:11 36.5 C 55 L 18 177/82 H 158/86 H 96 Room Air 09/19/22 23:42 36.7 C 57 L 20 166/73 H 97 Room Air PG Care Time/CCT Total # of Minutes Spent Total Time Spent with Patient: Total time spent is greater than 50% in coordination of care (as documented) at patient's floor/unit and/or counseling patient: Coding Level of Care Code 12364 Subseq Hosp Care Lvl 2 Diagnoses MIKE (acute kidney injury) N17.9 S/P endovascular aneurysm repair Z98.890; Z86.79 Hypotension I95.9 Hypertension, essential I10 Dyslipidemia E78.5 Type 2 diabetes mellitus E11.9
[2022-09-20] MEDS ORDERED: amLODIPine BESYLATE 5 MG TAB PO SCH (11:30)
--- NOTE | 2022-09-20 14:19 | Hospitalist Progress Note ---
Date of Service September 20, 2022 Assessment & Plan (1) S/P endovascular aneurysm repair: Plan: Medicine was asked to see patient in consultation. - S/p endovascular repair of aortic aneurysm & fem/fem bypass with graft on 09/14 - He developed hypotension and scrotal hematoma, now much improved. Femoral sites with wound VAC in place, no surrounding swelling/hematoma. Per RN, they will fall off in 1-2 days. Family can peel off the area. - Management by vascular team (2) MIKE (acute kidney injury): Plan: Baseline Cr ~1.6, though priors in 2020 were as high as 1.7 - 1.9. Elevated Cr above baseline with Cr up to 2.6 on 09/16. - Most likely from contrast Nephrology consulted, appreciate recs No NSAIDs, avoid nephrotoxins, trend BMP Hold lisinopril, but can restart on discharge. - Presently with Cr. at 2.0. Gradually improving. Can f/u with PCP for BMP in 1 week. (3) AAA (abdominal aortic aneurysm): Plan: S/p repair as above. (4) Chronic CHF: Plan: Chronic HF w r EF. Echo in [facility] from 08/05/2022 showed EF 40 - 45%. Patient denies history of congestive heart failure apart from intermittent orthopnea which he has attributed to RADHA but does not use NIV. Denies history of leg swelling Monitor volume status - Presently without LE edema. (5) Hypertension, essential: Plan: BP today is 155/80. - Resume lisinopril on discharge. - Continue amlodipine (6) Type 2 diabetes mellitus: Plan: A1c was 6.0% in 08/2022. Hold home metformin Continue to monitor glucose. Sliding scale insulin. (7) Dyslipidemia: Plan: - Continue simvastatin Plan Stable to discharge from medicine perspective. Patient ambulated on his own in the halls. Insurance felt SNF was not needed. apprehensive about discharge, but patient very interested in going home. Should have son available to t ransition into the house. Admission and Anticipated Discharge Date Admission Date: September 14, 2022 Subjective Doing well today. Feeling like he wants to go home. Feeling stronger. Physical Exam Constitutional: WD/WN, vitals as above Eyes: EOM intact bilaterally; no conjunctival abnormality ENMT: external ear and nose normal, oropharynx normal Neck: trachea midline, no thyromegaly normal visual inspection Respiratory: normal respiratory effort, lungs clear to auscultation no respiratory distress Cardiovascular: RRR, no murmur, no edema Gastrointestinal (Abdomen): Inspection/Auscultation: abdomen normal to inspection; abdomen not distended Musculoskeletal: no cyanosis or clubbing, extremities motor strength 5/5 Wound vacs in both groins. Skin: no rashes, warm and dry Neurologic: moves all extremities and awake Psychiatric: Orientation: alert, oriented to person and cooperative Results & Data Results & Data ([facility]) Vital Signs (Past 12 Hours) Vital Signs Temp Pulse Resp BP BP Pulse Ox O2 Del Method 09/20/22 08:00 Room Air 09/20/22 07:11 36.5 C 55 L 18 177/82 H 158/86 H 96 Room Air PG Care Time/CCT Total # of Minutes Spent Total Time Spent with Patient: Total time spent is greater than 50% in coordination of care (as documented) at patient's floor/unit and/or counseling patient: Coding Level of Care Code 49738 Subseq Hosp Care Lvl 2 Diagnoses S/P endovascular aneurysm repair Z98.890; Z86.79 MIKE (acute kidney injury) N17.9 AAA (abdominal aortic aneurysm) I71.4 Chronic CHF I50.9 Hypertension, essential I10 Type 2 diabetes mellitus E11.9 Dyslipidemia E78.5
--- NOTE | 2022-09-20 14:30 | Surgery Progress Note ---
Date of Service September 20, 2022 Assessment & Plan (1) MIKE (acute kidney injury): Plan: Creat continues to approach baseline (2) S/P endovascular aneurysm repair: Plan: Doing well Will d/c today. Hold mobic until he sees his pcp Admission and Anticipated Discharge Date Admission Date: September 14, 2022 Subjective Patient without complaints. Able to get out of bed without assistance today. Physical Exam Constitutional: WD/WN, vitals as above Respiratory: normal respiratory effort; no respiratory distress Cardiovascular: Rate/Rhythm: regular rate and regular rhythm Extremities: normal capillary refill excellent pedal dopplers Gastrointestinal (Abdomen): Percussion/Palpation: abdomen soft Musculoskeletal: no cyanosis or clubbing, extremities motor strength 5/5 Skin: + incision (prevenas working well) Psychiatric: Orientation: alert and oriented x 3 Results & Data ([facility]) Vital Signs (Past 12 Hours) Vital Signs Temp Pulse Resp BP BP Pulse Ox O2 Del Method 09/20/22 08:00 Room Air 09/20/22 07:11 36.5 C 55 L 18 177/82 H 158/86 H 96 Room Air
--- NOTE | 2022-09-20 14:32 | Discharge Summary ---
Date of Service September 20, 2022 Admission HPI Per Admitting Provider Mr. Umaña is a middle-aged male who presented for a 1 year follow-up visit regarding his history of abdominal aortic aneurysm, as well as severe aortoiliac disease. Patient states he is not particularly active, but denies any worsening significant claudication symptoms since being seen here a year ago. He states he feels he is able to complete his normal daily activities. He denies any rest pain, nonhealing ulcer ulcers, or other concerns. He does continue to smoke daily. His aortoiliac ultrasound performed prior to today's appointment demonstrates an increase in size of his infrarenal abdominal aortic aneurysm, now measuring 5.1 x 5.1 cm. This previously measured 4.6 cm 1 year ago. Additionally it demonstrates a known chronic occlusion of the right common iliac artery, and a severe stenosis of his left common iliac artery. This is also unchanged in comparison to the previous ultrasound. Patient's bilateral lower extremity arterial ultrasound demonstrates monophasic inflow bilaterally, but no significant stenosis noted throughout the remainder of his lower extremities. His right JAKE is 0.72 and his left is 0.59 Admission Exam Per Admitting Provider Constitutional: In general patient is an obese but healthy-appearing well- nourished well-developed middle-aged male no distress. Is alert and without any focal deficits. His heart is regular, his lungs are decreased throughout but clear bilaterally. His abdomen soft nontender with normoactive bowel sounds in 4 quadrants. I am unable to appreciate a pulsatile mass due to body habitus. Brachial and radial pulses are +3. Femoral pulses are nonpalpable. Lower extremity DP pulses are +1. Brisk capillary fill and no sign of distal ischemia Principal Diagnosis Abdominal aortic aneurysm and right iliac artery occlusion Discharge Exam Constitutional WD/WN, vitals as above Respiratory normal respiratory effort; no respiratory distress Cardiovascular Rate/Rhythm: regular rate and regular rhythm Extremities: normal capillary refill Gastrointestinal (Abdomen) Inspection/Auscultation: abdomen normal to inspection Percussion/Palpation: abdomen soft; abdomen nontender Musculoskeletal no cyanosis or clubbing, extremities motor strength 5/5 Skin + incision (prevenas working well) Neurologic moves all extremities Psychiatric Orientation: alert and oriented x 3 Discharge Data Allergies Allergy/AdvReac Type Severity Reaction Status Date / Time No Known Allergies Allergy Verified 09/14/22 06:24 Consultations 09/14/22 13:40 Consult Film Inspector Routine 09/16/22 08:23 Consult Nephrology Routine 09/16/22 09:51 Consult Hospitalist Routine Procedures Performed Operation Date: 09/14/22 08:00 Actual Procedures p to Femoral to Femoral Bypass with Graft, Attempted Percutaneous Transluminal Angioplasty of Right Common Illiac Artery, Ultrasound Localization of Common Femoral Arteries Bilaterally(Bilateral) - Khoi Castillo MD s Endovascular Aortic Aneurysm Repair with Conversion - Khoi Castillo MD Ordered Studies 09/14/22 07:14 EV AAA repair aorta only Routine US EV guide vascular access Routine 09/16/22 10:47 CT Abd and Pelvis [CT abd pelvis wo con] Urgent Hospital Course (1) MIKE (acute kidney injury): Creat continues to approach baseline (2) S/P endovascular aneurysm repair: Doing well Will d/c today. Hold mobic until he sees his pcp Total Time Total Time Spent Total Time Spent (In Minutes): 0 Discharge Plan Discharge Items Patient Disposition: Home - Self-Care Reason For Visit: Abdominal Aortic Aneurysm, Right Common Iliac Priyanka Discharge Diagnosis: Abdominal aortic aneurysm,right common iliac artery occlusion Activity: Per Instructions section Non-emergency contact: Surgeon Call non-emergency contact if: your temperature is above 101.5, your wound has increased redness, your wound has increased drainage and your wound pain has increased Follow-up/Referrals: Venkat Camejo DO [Primary Care Provider] - Diet: Heart Healthy Addtl Attending Provider Instructions: You will be receiving a call from the Vascular Surgery Nurse after you are discharged. ACTIVITY RECOMMENDATIONS: Remove groin dressings once battery is non functional and dressing looses its suction. Replace with small dressing if any drainage occurs May shower once dressings are off. Do not soak in under water. SPECIAL CARE INSTRUCTIONS: Call your doctor if: * Temperature above 101 degrees * Pain not relieved by pain medicine ordered * There is increased drainage or redness from any incision * You have any unanswered questions or concerns. Call [phone] to schedule a follow up appointment if one not already scheduled. Pending Studies at Discharge: No Stand-Alone Forms: My [employer], Smoking Cessation Medications and DC Order Prescriptions: New oxycodone-acetaminophen [Percocet] 5-325 mg tablet 1 tab PO Q6H PRN (Reason: pain) Qty: 30 0RF Continued amlodipine 5 mg Tablet 5 mg PO QDL aspirin 81 mg Tablet,Delayed Release (Dr/Ec) 81 mg PO QAM metformin 500 mg tablet 500 mg PO BID cilostazol 100 mg tablet 100 mg PO BID meloxicam 15 mg tablet 15 mg PO HS lisinopril 20 mg tablet 20 mg PO QAM simvastatin 40 mg tablet 40 mg PO QAM terazosin 2 mg capsule 2 mg PO QAM Discharge Orders: Discharge Order (Routine); Ordered 09/20/22 Ordered By: Khoi Castillo Admission Data Admit Date/Time: 09/14/22 07:28 Attending Provider: Abel Masterson Admit Provider: Khoi Castillo Primary Care Provider: Venkat Camejo Other Providers: Mitch Gaming ; Jame Arguello ; Eagle Whitlock ; Domingo Kiser ; Daniel Almaraz ; Venkat Henry ; Natalya Mora ; Jaspal Doss ; Shakira Lemus ; Randy Wilcox ; Caleb Eaton ; Alyssa Oliva ; Tony Montes ; Chiquis Cordoba ; Caleb Castillo
--- NOTE | 2022-09-27 10:35 | Coding Query ---
CODING QUERY To promote full compliance with coding requirements relating to patient care, provider participation is requested in all cases of driver/guide uncertainty. Please assist us with the question(s) below: Coding Question(s): Pt adm for infrarenal aneurysm repair and femoral bypass . 09/16 's progress note documented ATN in refernce to the acute kidney failure. 09/20 Hospitalist note mentioned contrast induced nephropathy. Please check below the diagnosis/ acute kidney failure treated during this Inpatient staty. Thanks for your help! Real Wallace APPLICATIONS SUPPORT ENGINEER [facility] Physician's Response(s): __x____ Patient was diagnosed/treated for contrast-induced nephropathy Patient had ATN Cannot clinically correlate if ATN or contrast-induced nephropathy Other: Please document Do not have clear evidence for ATN as his urine did not have muddy brown casts. As such, feel contrast-induced nephropathy is more likely diagnosis. Principal Diagnosis: "that condition established after study, to be chiefly responsible for occasioning the admission of the patient to the hospital for care." Co-Existing Principal Diagnosis: "when two or more diagnoses equally meet the criteria for principal diagnosis as determined by the circumstances of admission, diagnostic work up, and/or therapy provided, and the Alphabetic Index, Tabular List, or another coding guideline does not provide sequencing direction, any one of the diagnoses may be sequenced first." "When the physician has documented what appears to be a current diagnosis in the body of the record, but has not included the diagnosis in the final diagnostic statement, the physician should be asked whether the diagnosis should be added." (Source [facility] 2 QTR90. p3-4) CAITLIN
--- NOTE | 2022-10-17 10:39 | Operative Report ---
Post Operative Report Pre & Post Diagnosis Operation Date: 09/14/22 08:00 Pre-Op Diagnosis: Abdominal Aortic Aneurysm Post-Op Diagnosis: Abdominal Aortic Aneurysm I identified the patient and participated in the time-out.: Yes Procedure Operation Date: 09/14/22 08:00 Actual Procedures p Left to Right Femoral to Femoral Bypass with Graft, Attempted Percutaneous Transluminal Angioplasty of Right Common Illiac Artery, Ultrasound Localization of Common Femoral Arteries Bilaterally(Bilateral) - Khoi Castillo MD s Endovascular Aortic Aneurysm Repair with Conversion - Khoi Castillo MD Surgeon Khoi Castillo MD Critical Power Install Technician Gwyn,PAC Estimated Blood Loss 150 Findings Consistent with Post-Op Diagnosis Specimens none Anesthesia Type General Complications none Disposition Accompanied Patient To Recovery: No Disposition: Recovery Room Indications This 71-year-old gentleman who was found to have 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 We recommended we attempt to cross the iliac lesion in order to put an endograft in. If the lesion could not be crossed then a unit limb with a femorofemoral bypass was recommended. He did have severe claudication of the right lower extremity. I have discussed the risks options and benefits of the procedure with the patient. The patient understands the risks options and benefits and agrees to the procedure. Description of Procedure Patient was brought to the OR and placed in supine position. Patient was prepped and draped in a sterile manner. A timeout was performed and the patient was identified. Puncture was then made in the right common femoral artery. A 6 Afghan sheath was inserted. Using the wire and a Kumpe catheter as well as a quick cross multiple attempts were done to try to cross the occluded right common iliac artery. The wire remained subintimal and would not reenter. We then decided to do a unilimb endograft and a femorofemoral bypass. An incision was then made in the right groin. This is carried down to where the common femoral artery puncture site were identified. Comfortable artery was isolated from tingling with the bifurcation. Same procedure was done on the left side exposing the common femoral artery from the ligament to the bifurcation. The a 6 Afghan sheath was left in place in the right groin. On the left side the common femoral artery was punctured. 035 wire was inserted an 8 Afghan sheath was inserted over the wire. We then passed an Kumpe catheter over the 035 wire and exchanged to a Amna wire. The puncture site was then dilated and the 18 Afghan sheath inserted. Pigtail catheter was inserted and a aortogram was performed marking the renal arteries. The pigtail was removed. An excluder which was 28.5 x 14.5 x 12 was inserted. It was passed up into the aortic neck. It was deployed below the renal arteries without difficulty. The shaft the graft was released and the limb was also expanded. Pigtail was then inserted and confirmed the positioning just below the renal artery. We then inserted the stiff wire again and removed the pigtail. A 28.5 x 14 and half by 14 excluder was inserted and deployed within the previous graft aligning the proximal edges at the same level. Once this was done the Q50 balloon was then inserted through the left sheath. The proximal attachment site and the distal attachment site were ballooned with the Q50 balloon. The balloon was then removed and the pigtail catheter reinserted. A final arteriogram was then performed which showed no evidence of a type I endoleak. Graft showed no evidence of narrowing throughout. An 035 Glidewire was then reinserted into the pigtail and the pigtail removed. We then pulled the 18 Afghan sheath and clamped the common fe moral artery proximal distally. A subcutaneous tunnel was made suprapubically and an 8 mm propatent graft was passed through the tunnel from the left to the right groin. The proximal anastomosis propatent was then trimmed to appropriate length and beveled. An end-to-side anastomosis was accomplished between the graft and the left common femoral artery using a running 5-0 Prolene suture in the usual vascular fashion. Clamp was then placed on the graft and the clamps removed from the common femoral artery restoring circulation to the left leg. On the right side the common femoral artery was clamped proximal distally and the 6 Afghan sheath removed. A longitudinal arteriotomy was then made. The artery was patent with mild plaque. The propatent graft was then beveled and trimmed the appropriate length. An end-to-side anastomosis was accomplished between the propatent graft and the right common femoral artery again using a 5- 0 Prolene suture in the usual vascular fashion. Backbleeding and forward bleeding were allowed to occur. The final few sutures were then placed and securely tied. Clamps were removed. Excellent flow was seen to the superficial profundofemoral arteries distally. Adequate hemostasis was noted of both suture lines. The wounds also showed adequate hemostasis. Wounds were then closed in usual fashion using a running 2-0 Vicryl suture for the femoral sheath and a 3-0 Vicryl for the subcutaneous layer. Mcbrides were used for the skin edges. Prevena dressings were used as a dressing. The patient left the operation room in satisfactory condition and tolerated the procedure well. All needle and sponge counts were correct at the end of the procedure. Catie Villasenor Pac assisted due to lack of resident availability and was necessary for positioning, draping, retraction, wound closure deep layers, subcutaneous tissue, and skin closure and was necessary for assisting with the case. I attest to the content of the Intraoperative Record and any orders documented therein. Any exceptions are noted below.
== END 2022-09-20 15:30 | disposition home health service (06) | DRG 269 ==
LOC: ASU 05:51 → SUATTDRO 07:28 → 1E 07:28 → 3N 09-17 10:53 → 3W 09-17 16:46